=== PATIENT | female | born 1965 | race Caucasian/White ===

== ENCOUNTER 2020-05-22 06:25 | Emergency (ER) | payer OTHER, SELFPAY ==
--- NOTE | ~2020-05-22 | CT_ITS ---
EXAMINATION: CT ABDOMEN AND PELVIS WITHOUT CONTRAST CLINICAL INFORMATION: Right lower quadrant pain. COMPARISON: CT abdomen pelvis 12/19/2018. TECHNIQUE: Multidetector volumetric imaging was performed from the superior aspect of the liver through the pubic symphysis. Sagittal and coronal reformatted images were obtained on the technologist's workstation. This CT examination was performed using dose optimization techniques as appropriate, variously including the following: *Automated exposure control *Adjustment of mA and/or kV according to patient size (this includes techniques or standardized protocols for targeted exams where dose is matched to indication/reason for exam; i.e. extremities or head) *Use of iterative reconstruction technique DLP: 832 mGy-cm FINDINGS: LUNG BASES: The incidentally visualized left lung base demonstrates mild focal posterior basilar airspace and groundglass opacity (series 3 image 10). LIVER, GALLBLADDER, AND BILIARY TREE: The liver is normal in size, shape, and attenuation. No focal hepatic lesion or biliary ductal dilatation is present. Cholecystectomy clips are noted. PANCREAS: Unremarkable. SPLEEN: A 7 mm peripheral low density focus is present inferiorly within the spleen and corresponds to similar finding present on the 12/19/2018 examination, possibly representing a cyst. No deformation of the adjacent splenic contour is noted to specifically suggest a chronic splenic infarct. ADRENAL GLANDS: Unremarkable. KIDNEYS AND URETERS: The kidneys are normal in appearance without evidence of hydronephrosis or perinephric inflammatory changes. No urolithiasis is identified. No ureterectasis is noted. BLADDER: Physiologically distended. No bladder calcifications or mural thickening. GASTROINTESTINAL TRACT: The appendix is not visualized. Close scrutiny to the cecum and expected location of the appendix demonstrates no inflammatory changes or abnormal fluid collections. The terminal ileum is normal in appearance. No free intraperitoneal fluid or gas collections are identified. No intestinal dilatation or mural thickening is visualized. The insulin visualized distal esophagus demonstrates apparent concentric mural thickening similar to findings noted on the comparison exam of 12/19/2018. No hiatal hernia is visualized. The stomach is normal in appearance. ABDOMINAL WALL: No significant hernia is appreciated. LYMPH NODES: Normal. VASCULAR: Mild scattered calcific atherosclerosis. PELVIC VISCERA: Uterus is normal in appearance. No adnexal lesions. OSSEOUS STRUCTURES: Mild bilateral osteitis condense and ileitis is noted. CT/CT abdomen pelvis wo con IMPRESSION: 1. Partially visualized mild focal right lower lobe pulmonary airspace disease. This finding may represent aspiration pneumonitis or pneumonia. This finding is only partially included in the incidentally visualized lung bases. 2. No acute abnormalities identified within the abdomen and pelvis. No urolithiasis. Normal appearance of the kidneys. The appendix is not visualized. No pericecal inflammatory changes. Normal appearance of the terminal ileum. No free intraperitoneal fluid or gas collections. 3. Status post cholecystectomy. 4. The incidentally visualized distal thoracic esophagus demonstrates concentric mural thickening similar to findings noted on the comparison exam of 12/19/2018 which may correlate with esophagitis.
[2020-05-22 06:44] VITALS: BP 149/74; PULSE 68; RESP 20; TEMP 36.6; O2SAT 96; BMI 32.1
--- NOTE | 2020-05-22 06:45 | ED.GENADULT ---
HPI - General Adult General Chief complaint: Abdominal Pain Stated complaint: Right side pain Time Seen by Provider: 05/22/20 06:34 Source: patient Mode of arrival: ambulatory Limitations: no limitations History of Present Illness HPI narrative: 55-year-old female who presents emergency department for evaluation of right flank and right lower quadrant pain. Patient states for over the past 2 days she has had a slight cramping sensation in her right flank and right lower quadrant area. She states that last night, while she was at rest, she had sudden onset of increased severity of this pain. She states that the pain became a constant, cramping sensation which was 8/10 at its worst. She had associated diaphoresis and felt like she had to urinate but was unable to urinate. She denied fever, chills, chest pain, shortness of breath, nausea or vomiting associated with the pain. She denied frequency or dysuria. The patient states this is her 1st episode of this type pain. The pain persisted this morning was 6/10, therefore she came to the emergency department for evaluation. Past surgical history is significant for cholecystectomy only. Related Data Previous Rx's Medication Instructions Recorded levothyroxine 300 mcg tablet 300 mcg PO DAILY 30 Days #30 tab 04/29/20 nicotine 14 mg/24 hr daily 1 patch TRANSDERMAL DAILY 28 Days 05/13/20 transdermal patch #28 ea azithromycin [Zithromax Z-Alton] See Rx Instructions .ROUTE 05/22/20 .COMPLEX #6 tab cefuroxime axetil 500 mg PO Q12H 7 Days #14 tab 05/22/20 omeprazole 20 mg PO DAILY #30 cap 05/22/20 Allergies Allergy/AdvReac Type Severity Reaction Status Date / Time No Known Allergies Allergy Unverified 05/22/20 06:48 Review of Systems Review of Systems: Yes all other systems are reviewed and are negative Neurologic: Reports Abnormal speech present [facility] Past Medical History [facility] Narrative: The patient smokes 4 cigarettes per day times 25 years, she denies alcohol and tobacco use. Medical History Hypothyroid Raynaud's disease without gangrene Family History Family History Father Liver cancer Mother Hypertension Social History Social History Alcohol intake: never Smoking Status: Current every day smoker Tobacco Type: Cigarette Cigarettes Per Day: 5 Use of substances other than those prescribed or required for medical reasons: No Advance Directives: Yes Advance Directives Information Provided: Yes Advance Directives on File: No Physical Exam Vital Signs: Vital Signs: Last Vital Signs Temp 97.9 F 05/22/20 06:44 Pulse 68 05/22/20 08:14 Resp 16 05/22/20 08:14 BP 144/67 H 05/22/20 08:14 Pulse Ox 96 05/22/20 08:14 Body Mass Index 32.1 Const: General: cooperative Nutritional Appearance: overweight Orientation/consciousness: oriented to person and oriented to place Limitations: no limitations HENMT: Head: Yes normal to inspection, Yes normocephalic and Yes atraumatic Ears: external ears normal General nose exam: Normal external nose present Face and sinus: Yes normal facial exam Mouth: Normal oral and palatal mucosa present Throat: Yes posterior oropharynx normal Eyes: Periorbital: periorbital findings normal Eyelids: Yes eyelids normal Conjunctivae: conjunctivae normal Sclerae: sclerae normal Corneas: corneas normal Pupils: Equal, round and reactive pupils present Direct Ophthalmoscopy: normal light reflex Neck: Neck: Yes full ROM, Yes no lymphadenopathy, Yes no meningeal signs, Yes trachea midline and Yes supple Chest: Chest palpation & inspection: normal inspection of the chest and normal palpation of entire chest wall Resp: Effort & Inspection: normal respiratory effort and able to speak in complete sentences Auscultation: clear to auscultation bilaterally Cardio: Rate: regular rate Rhythm: regular rhythm Heart sounds: S1 normal heart sound present, S2 normal heart sound present and no murmurs GI: Inspection: Yes normal to inspection Palpation (GI): Soft to palpation, Tenderness to palpation present (GI) in the RLQ (Moderate), no guarding, not rigid and No hepatosplenomegaly present Auscultation: normal bowel sounds : General: Yes CVA tenderness on the right (Moderate) Back/Spine/Pelvis: Back: CVA tenderness Cervical Spine: normal cervical lordosis Thoracic/Lumbar Spine: thoracic and lumbar spine normal to inspection Skin: Lesions: no lesions Rashes: no rashes Wounds: no wounds Neuro: General: oriented to person, oriented to place and no meningeal signs Cranial nerves: Yes CN's II-XII intact bilaterally and Yes Equal, round and reactive pupils present Cognition (Neuro): normal cognition Speech: Abnormal speech present Motor exam (neuro): 5/5 motor strength present throughout Extrem: General: Yes normal to inspection and Yes full ROM Psych: Appearance: well kempt Mental Status: mental status grossly normal Speech and movement: Normal speech and movement present Affect: normal affect Attitude: cooperative Thought process: Normal thought process present Thought content: Normal thought content present Course Course Course Narrative: 55-year-old female who presents to emergency department for evaluation right flank and right lower quadrant pain x2 days, pain became worse at 10:00 p.m. last night, associated with hesitancy but no frequency or dysuria. Physical examination did reveal right flank tenderness and right lower quadrant tenderness. I ordered a CBC, CMP, the urinalysis, urine test and CT scan of the abdomen pelvis without IV contrast. Patient was also ordered to get Toradol 30 mg IV for her pain. 0907: The patient did get some improvement with the Toradol but her pain is still 6/10 therefore she was ordered to get morphine 4 mg IV. The patient's laboratory evaluation revealed mild anemia with an H&H of 12 and 35. Urinalysis revealed 3+ blood, microscopic revealed 15-[address] scan of the abdomen pelvis did not reveal a clear cause for the patient's abdominal pain. The patient does have possible right lower lobe airspace disease/pneumonia which could explain her right-sided pain. The patient however is relatively asymptomatic terms of pneumonia as the cause. Patient has esophageal thickening but she states she has chronic heartburn symptoms. The radiologist was not able to visualize the patient's appendix but there was no other signs of acute appendicitis. I did tell the patient I do not have a clear cause for her pain and I going to treat her like she has pneumonia with azithromycin Z-Alton and Ceftin 500 mg twice a day for 7 days. The patient was advised to take Tylenol and ibuprofen for pain. I did tell her for pain gets worse over the next 24 hours or if it is not completely resolved in 24 hours that she needs to return to the emergency department for re-evaluation to rule out appendicitis. Medical Decision Making Lab Data Result diagrams: 05/22/20 06:58 05/22/20 06:58 Labs: Lab Results 05/22/20 05/22/20 Range/Units 06:58 06:58 WBC 8.1 (4.8-10.8) X10*3/uL RBC 3.57 L (4.20-5.50) X10*6/uL Hgb 12.1 (12.0-16.0) g/dl Hct 35.1 L (37-47) % MCV 98.3 H (80-98) fL MCH 33.9 H (27.0-33.0) pg MCHC 34.5 (31.0-35.0) g/dl RDW 13.2 (11.0-16.0) % Plt Count 195 (160-400) X10*3/uL MPV 9.9 (9.4-12.3) fL Immature Gran % (Auto) 0.5 H (0.0-0.4) % Neut % (Auto) 63.4 (45-73) % Lymph % (Auto) 22.4 (20-40) % [place] % (Auto) 10.5 (2-11) % Eos % (Auto) 2.7 (0-4) % Baso % (Auto) 0.5 (0-2) % Lymph # (Auto) 1.8 (1.2-4.9) X10*3/uL [place] # (Auto) 0.9 (0.1-1.2) X10*3/uL Eos # (Auto) 0.2 (0.0-0.4) X10*3/uL Baso # (Auto) 0.0 (0.0-0.2) X10*3/uL Abs Immat Gran (auto) 0.04 H (0.00-0.03) X10*3/uL Absolute Neuts (auto) 5.1 (2.0-8.3) X10*3/uL Absolute Nucleated RBC 0.000 (0.0-0.012) X10*3/uL Nucleated RBC % (auto) 0.0 (0.0-0.2) /100WBC Sodium 140 (135-145) mmol/L Potassium 4.2 (3.3-5.1) mmol/L Chloride 105 (96-108) mmol/L Carbon Dioxide 27 (22-29) mmol/L Anion Gap 12 (12-20) BUN 15 (9-16) mg/dL Creatinine 0.69 (0.5-1.4) mg/dL Estim Creat Clear Calc 110.3 Estimated GFR > 60 Random Glucose 121 H (60-115) mg/dL Calcium 8.6 (8.4-10.2) mg/dL Total Bilirubin 0.3 (0.0-1.0) mg/dL AST 29 (5-31) U/L ALT 25 (0-31) U/L Alkaline Phosphatase 84 (39-117) U/L Total Protein 7.3 (6.5-8.0) g/dL Albumin 3.7 (3.5-5.0) g/dL Lipase 45 (8-78) U/L Imaging Data CT abdomen pelvis without IV contrast: My impression: No obvious cause for the patient's right-sided abdominal pain. Radiologist's impression: [address] [id number] Scan ReportSigned Patient: Sreekanth DorantesMR#: [id number]: [id number]:[id number]/Sex: 55 / FADM Date: 05/22/20Loc: HO.EDAttending Dr: Ordering Physician: Akash Farr MD Date of Service: 05/22/20 Procedure(s): CT abdomen pelvis wo con Accession Number(s): [id number] cc: Akash Farr MD~ EXAMINATION: CT ABDOMEN AND PELVIS WITHOUT CONTRAST CLINICAL INFORMATION: Right lower quadrant pain. COMPARISON: CT abdomen pelvis 12/19/2018. TECHNIQUE: Multidetector volumetric imaging was performed from the superior aspect of the liver through the pubic symphysis. Sagittal and coronal reformatted images were obtained on the technologist's workstation. This CT examination was performed using dose optimization techniques as appropriate, variously including the following: *Automated exposure control *Adjustment of mA and/or kV according to patient size (this includes techniques or standardized protocols for targeted exams where dose is matched to indication/reason for exam; i.e. extremities or head) *Use of iterative reconstruction technique DLP: 832 mGy-cm FINDINGS: LUNG BASES: The incidentally visualized left lung base demonstrates mild focal posterior basilar airspace and groundglass opacity (series 3 image 10). LIVER, GALLBLADDER, AND BILIARY TREE: The liver is normal in size, shape, and attenuation. No focal hepatic lesion or biliary ductal dilatation is present. Cholecystectomy clips are noted. PANCREAS: Unremarkable. SPLEEN: A 7 mm peripheral low density focus is present inferiorly within the spleen and corresponds to similar finding present on the 12/19/2018 examination, possibly representing a cyst. No deformation of the adjacent splenic contour is noted to specifically suggest a chronic splenic infarct. ADRENAL GLANDS: Unremarkable. KIDNEYS AND URETERS: The kidneys are normal in appearance without evidence of hydronephrosis or perinephric inflammatory changes. No urolithiasis is identified. No ureterectasis is noted. BLADDER: Physiologically distended. No bladder calcifications or mural thickening. GASTROINTESTINAL TRACT: The appendix is not visualized. Close scrutiny to the cecum and expected location of the appendix demonstrates no inflammatory changes or abnormal fluid collections. The terminal ileum is normal in appearance. No free intraperitoneal fluid or gas collections are identified. No intestinal dilatation or mural thickening is visualized. The insulin visualized distal esophagus demonstrates apparent concentric mural thickening similar to findings noted on the comparison exam of 12/19/2018. No hiatal hernia is visualized. The stomach is normal in appearance. ABDOMINAL WALL: No significant hernia is appreciated. LYMPH NODES: Normal. VASCULAR: Mild scattered calcific atherosclerosis. PELVIC VISCERA: Uterus is normal in appearance. No adnexal lesions. OSSEOUS STRUCTURES: Mild bilateral osteitis condense and ileitis is noted. CT/CT abdomen pelvis wo con IMPRESSION: 1. Partially visualized mild focal right lower lobe pulmonary airspace disease. This finding may represent aspiration pneumonitis or pneumonia. This finding is only partially included in the incidentally visualized lung bases. 2. No acute abnormalities identified within the abdomen and pelvis. No urolithiasis. Normal appearance of the kidneys. The appendix is not visualized. No pericecal inflammatory changes. Normal appearance of the terminal ileum. No free intraperitoneal fluid or gas collections. 3. Status post cholecystectomy. 4. The incidentally visualized distal thoracic esophagus demonstrates concentric mural thickening similar to findings noted on the comparison exam of 12/19/2018 which may correlate with esophagitis. Dictated By:SADIA ORTEGA MDSigned By:<Electronically signed by SADIA ORTEGA MD in [place]> Discharge Plan Discharge Clinical Impression: Pneumonia Qualifiers: Pneumonia type: due to unspecified organism Laterality: right Lung location: lower lobe of lung Qualified Code(s): J18.9 - Pneumonia, unspecified organism Abdominal pain Qualifiers: Abdominal location: right lower quadrant Qualified Code(s): R10.31 - Right lower quadrant pain Patient Disposition: Home, Self-Care Instructions: Abdominal Pain (ED), Pneumonia (ED) Additional Instructions: Your blood work was unremarkable. You did have some blood in your urine which is not significant The CT scan of your abdomen pelvis is concerning for possible right-sided pneumonia and esophagitis (inflammation of your food 2/esophagus). The pneumonia could explain your abdominal pain however there are still other possible causes for your abdominal pain like appendicitis. I am going to treat you for pneumonia with antibiotics. Take Zithromax Z-Alton as prescribed. Take Ceftin 500 mg pills, 1 pill twice a day for 7 days. Make sure you complete both of these antibiotics as prescribed. Take ibuprofen 200 mg pills, 3 pills every 6 hours as needed for pain. Take Tylenol (acetaminophen) 500 mg pills, 2 pills every 4 to 6 hours as needed for pain. Also take Prilosec 20 mg pills, 1 pill once a day for 1 month patient help with your heartburn. Since I am not completely certain what is causing your abdominal pain it is important that you return to the emergency department if your pain gets worse or if your pain is not completely resolved in 24 hours. Follow-up with your doctor in 2 days. Please return to the emergency department if your symptoms get worse or if you develop any symptoms that are concerning to you. Prescriptions: New azithromycin [Zithromax Z-Alton] 250 mg tablet See Rx Instructions .ROUTE .COMPLEX Qty: 6 RF: 0 cefuroxime axetil 500 mg tablet 500 mg PO Q12H 7 Days Qty: 14 RF: 0 omeprazole 20 mg capsule,delayed release(DR/EC) 20 mg PO DAILY Qty: 30 RF: 0 No Action levothyroxine 300 mcg tablet 300 mcg PO DAILY 30 Days Qty: 30 RF: 2 nicotine 14 mg/24 hr patch 24 hour 1 patch transdermal DAILY 28 Days Qty: 28 RF: 0
[2020-05-22] MEDS: Ketorolac Tromethamine 30 MG/ML VIAL IVPUSH (07:00)
[2020-05-22] MEDS: 0.9 % Sodium Chloride 1,000 ML 999 ML IV (07:00)
[2020-05-22 07:02] LABS: MANUAL DIFF FLAG NO
[2020-05-22 07:38] LABS: Alanine Aminotransferase 25 U/L (0-31); Albumin Level 3.7 g/dL (3.5-5.0); Alkaline Phosphatase 84 U/L (39-117); Anion Gap 12 (12-20); Aspartate Amino Transferase 29 U/L (5-31); Bilirubin Total 0.3 mg/dL (0.0-1.0); Blood Urea Nitrogen 15 mg/dL (9-16); Calcium 8.6 mg/dL (8.4-10.2); Carbon Dioxide 27 mmol/L (22-29); Chloride 105 mmol/L (96-108); Creatinine Clr Calc Pharmacy 110.3; Estimated Glomerular Filt Rate > 60; Glucose Random 121 mg/dL (60-115); Lipase 45 U/L (8-78); Potassium 4.2 mmol/L (3.3-5.1); Sodium 140 mmol/L (135-145); Total Protein 7.3 g/dL (6.5-8.0)
[2020-05-22 07:53] LABS: Basophils Percent Auto 0.5 % (0-2); Eosinophils Absolute Auto 0.2 X10*3/uL (0.0-0.4); Eosinophils Percent Auto 2.7 % (0-4); Hematocrit 35.1 % (37-47); Hemoglobin 12.1 g/dl (12.0-16.0); Imm Gran Abs Auto 0.04 X10*3/uL (0.00-0.03); Imm Gran Pct Auto 0.5 % (0.0-0.4); Lymphocytes Absolute Auto 1.8 X10*3/uL (1.2-4.9); Lymphocytes Percent Auto 22.4 % (20-40); Mean Corpuscular HGB Conc 34.5 g/dl (31.0-35.0); Mean Corpuscular Hemoglobin 33.9 pg (27.0-33.0); Mean Corpuscular Volume 98.3 fL (80-98); Mean Platelet Volume 9.9 fL (9.4-12.3); Monocytes Absolute Auto 0.9 X10*3/uL (0.1-1.2); Monocytes Percent Auto 10.5 % (2-11); Neutrophils Absolute Auto 5.1 X10*3/uL (2.0-8.3); Neutrophils Percent Auto 63.4 % (45-73); Platelet Count 195 X10*3/uL (160-400); Red Blood Count 3.57 X10*6/uL (4.20-5.50); Red Cell Distribution Width 13.2 % (11.0-16.0); White Blood Count 8.1 X10*3/uL (4.8-10.8)
[2020-05-22 08:14] VITALS: BP 144/67; PULSE 68; RESP 16; O2SAT 96
[2020-05-22] MEDS: Azithromycin 500 MG TABLET PO (09:18)
[2020-05-22] MEDS: Morphine Sulfate 4 MG/ML CARTRIDGE IVPUSH (09:18)
[2020-05-22 09:19] VITALS: BP 139/71; PULSE 65; RESP 16; O2SAT 96
== END 2020-05-22 10:34 | disposition home or self-care (01) ==
PROVIDERS: Emergency Provider Emergency Medicine Emergency Medical Services; PCP Nurse Practitioner Family
DX: J18.9 Pneumonia, unspecified organism (principal); R10.31 Right lower quadrant pain; Z87.442 Personal history of urinary calculi; F17.210 Nicotine dependence, cigarettes, uncomplicated
CPT/HCPCS: 36415; 74176; 80053; 83690; 85025; 96361; 96374; 96375; 99284; J1885; J2270

== ENCOUNTER 2020-10-21 21:56 | Inpatient (IN) | payer OTHER, SELFPAY ==
--- NOTE | ~2020-10-21 | CT_ITS ---
EXAMINATION: CT HEAD WITHOUT CONTRAST CLINICAL INFORMATION: Headache. Rule out subarachnoid hemorrhage. COMPARISON: None. TECHNIQUE: Contiguous axial imaging was performed from the skull base to vertex without intravenous contrast. This CT examination was performed using dose optimization techniques as appropriate, variously including the following: * Automated exposure control * Adjustment of mA and/or kV according to patient size (this includes techniques or standardized protocols for targeted exams where dose is matched to indication/reason for exam; i.e. extremities or head) Use of iterative reconstruction technique DLP: 875 mGy-cm. FINDINGS: There is no evidence of acute intracranial hemorrhage or territorial infarction. No abnormal mass effect or midline shift is seen. Cook to white matter differentiation is well preserved. No extra-axial fluid collections are identified. No hydrocephalus. No significant volume loss. There is no abnormal attenuation within the brain parenchyma. The osseous structures and soft tissues are normal. The mastoid air cells and visualized portions of the paranasal sinuses are well aerated. CT/CT head/brain wo con IMPRESSION: No acute intracranial pathology.
--- NOTE | ~2020-10-21 | XR_ITS ---
EXAMINATION: XR CHEST CLINICAL INFORMATION: Concern for pneumonia. COMPARISON: None TECHNIQUE: 2 views of the chest were obtained. FINDINGS: The cardiomediastinal and hilar contours are within normal limits. The lungs are clear without focal consolidation, pleural effusion or pneumothorax. XR/XR chest 2V IMPRESSION: No acute process identified.
--- NOTE | ~2020-10-21 | MR_ITS ---
EXAMINATION: MRV HEAD WITHOUT AND WITH CONTRAST CLINICAL INFORMATION: Headache. Lupus anticoagulant. Rule out cerebral venous thrombosis. COMPARISON: Head CT 10/23/2020. TECHNIQUE: MRV of the head was performed without and with contrast. Maximum intensity projections and 3-D reformats were rendered and reviewed. A total of 10 mL Gadavist was intravenously administered. Although contrast was injected, due to bolus timing, no postcontrast images were acquired per the technologist note. FINDINGS: The superior sagittal sinus and paired transverse and sigmoid sinuses demonstrate normal flow related enhancement and opacification. The deep system including the straight sinus, vein of Nakul, and paired internal cerebral veins and basal veins of Alejandra are patent. MR/MR venography head wo/w con IMPRESSION: No evidence of dural venous sinus thrombosis on this noncontrast exam.
--- NOTE | ~2020-10-21 | US_ITS ---
EXAMINATION: US VENOUS ULTRASOUND WITH DOPPLER LOWER EXTREMITY, RIGHT CLINICAL INFORMATION: Swelling COMPARISON: None TECHNIQUE: Ultrasound of the deep veins is performed from the hip to the calf with compression sonography and color and pulse Doppler assessment. Spectral analysis with color-flow imaging is performed. FINDINGS: There is acute appearing nearly occlusive thrombus seen within the right lower extremity from the level of the calf to the mid thigh at the level of the superficial femoral vein. Remainder of the deep venous system is patent There is no significant popliteal fossa cyst. US/US venous duplex LE RT IMPRESSION: Acute DVT as above. Reading provided via stranding supervisor staff.
[2020-10-21 21:58] VITALS: BP 188/98; PULSE 76; RESP 16; TEMP 36.2; O2SAT 98; BMI 32.8
--- NOTE | 2020-10-21 22:40 | ED.LOWEXIN ---
HPI - Extremity Injury (Lower) General Chief Complaint: Extremity Injury, Lower Stated Complaint: leg swelling Time Seen by Provider: 10/21/20 22:15 Source: patient Mode of arrival: ambulatory History of Present Illness HPI Narrative: 55-year-old female with a past medical history hypothyroid, renal stones, Raynaud's, presenting to the ED complaining of worsening RLE swelling and pain x 6 days. Admits to similar symptoms in the past however not as severe which resolved spontaneously. Patient is cigarette smoker smokes 1/2 PPD. denies fever, chills, cough, CP/SOB, recent travel, history of blood clots, numbness/tingling Related Data Previous Rx's Medication Instructions Recorded levothyroxine 300 mcg tablet 300 mcg PO DAILY 30 Days #30 tab 04/29/20 nicotine 14 mg/24 hr daily 1 patch TRANSDERMAL DAILY 28 Days 05/13/20 transdermal patch #28 ea azithromycin 250 mg tablet See Rx Instructions .ROUTE 05/22/20 (Zithromax Z-Alton) .COMPLEX #6 tab cefuroxime axetil 500 mg tablet 500 mg PO Q12H 7 Days #14 tab 05/22/20 omeprazole 20 mg capsule,delayed 20 mg PO DAILY #30 cap 05/22/20 release apixaban 5 mg (74 tabs) tablets in 5 mg PO PER PKG DIR #74 ea 10/22/20 a dose pack (Eliquis DVT-PE Treat 30D Start) Allergies Allergy/AdvReac Type Severity Reaction Status Date / Time No Known Allergies Allergy Unverified 05/22/20 06:48 Review of Systems Review of Systems: Constitutional: No Fever, No Chills ENT/Mouth: No Ear Pain, No sore throat, No Swallowing Difficulty Cardiovascular: No Chest Pain, No SOB Respiratory: No Cough Gastrointestinal: No Nausea, No Vomiting, No Abdominal pain Genitourinary:No Dysuria, No Urinary Frequency, No Flank Pain Musculoskeletal: + joint pain, No Myalgias, +Joint Swelling Skin: No Skin Lesions, No rash Neuro: No Weakness, No Numbness, No Paresthesias Yes all other systems are reviewed and are negative [facility] Past Medical History Attestation statement: The following information was validated with the patient. Medical History Hypothyroid Raynaud's disease without gangrene Family History Family History Father Liver cancer Mother Hypertension Social History Social History Alcohol intake: never Cigarettes Per Day: 5 Advance Directives: No Advance Directives Information Provided: Yes Physical Exam Vital Signs: Vital Signs: Last Vital Signs Temp 98.1 F 10/21/20 23:39 Pulse 73 10/21/20 23:39 Resp 16 10/21/20 23:39 BP 155/89 H 10/21/20 23:39 Pulse Ox 96 10/21/20 23:39 Body Mass Index 32.8 Const: General: cooperative and healthy appearing Orientation/consciousness: patient oriented x3 Limitations: no limitations HENMT: Head: Yes normal to inspection Ears: hearing grossly normal bilaterally General nose exam: Normal external nose present Face and sinus: Yes normal facial exam Eyes: General: appearance normal, both eyes and all related structures EOM: EOMs intact bilaterally Neck: Neck: Yes normal visual inspection Resp: Effort & Inspection: normal respiratory effort Auscultation: clear to auscultation bilaterally, no rales, no rhonchi and no wheezes Cardio: Rate: regular rate Heart sounds: S1 normal heart sound present and S2 normal heart sound present Peripheral pulses: dorsalis pedis present Skin: Rashes: no rashes Wounds: no wounds Neuro: General: patient oriented x3 Gait exam (Neuro): Normal gait present Extrem: Other: + pitting edema noted to right lower extremity. Pulses intact. Tender to palpation. No evidence of cellulitis/erythema or warmth Course Course Course Narrative: US venous duplex LE RT IMPRESSION: Acute DVT as above. Reading provided via veterinary technology instructor staff. >> will obtain labs, still low suspicion for PE as patient has no SOB/CP. -0016--no leukocytosis. H&H is stable. PTT elevated to 72 >> Case discussed with Dr. Willis question if patient may have lupus or other disorder causing this abnormality. Will redraw PTT and an SAMIR titer. Holding p.o. Eliquis dose at this time. -0100--ED care transferred to Dr. Willis pending repeat PTT MDM - Extremity Injury (Lower) MDM Narrative Medical decision making narrative: 55-year-old female with a past medical history hypothyroid, renal stones, Raynaud's, presenting to the ED complaining of worsening RLE swelling and pain x 6 days. Admits to similar symptoms in the past however not as severe which resolved spontaneously. Patient is cigarette smoker smokes 1/2 PPD. denies fever, chills, cough, CP/SOB, recent travel, history of blood clots, numbness/tingling Lab Data Result diagrams: 10/21/20 23:51 10/21/20 23:51 Labs: Lab Results 10/21/20 10/21/20 10/21/20 Range/Units 23:51 23:51 23:51 WBC 9.1 (4.8-10.8) X10*3/uL RBC 3.54 L (4.20-5.50) X10*6/uL Hgb 11.9 L (12.0-16.0) g/dl Hct 33.9 L (37-47) % MCV 95.8 (80-98) fL MCH 33.6 H (27.0-33.0) pg MCHC 35.1 H (31.0-35.0) g/dl RDW 13.2 (11.0-16.0) % Plt Count 157 L (160-400) X10*3/uL MPV 9.1 L (9.4-12.3) fL Immature Gran % (Auto) 1.0 H (0.0-0.4) % Neut % (Auto) 66.6 (45-73) % Lymph % (Auto) 22.2 (20-40) % Schoolcraft % (Auto) 8.1 (2-11) % Eos % (Auto) 1.8 (0-4) % Baso % (Auto) 0.3 (0-2) % Lymph # (Auto) 2.0 (1.2-4.9) X10*3/uL Schoolcraft # (Auto) 0.7 (0.1-1.2) X10*3/uL Eos # (Auto) 0.2 (0.0-0.4) X10*3/uL Baso # (Auto) 0.0 (0.0-0.2) X10*3/uL Abs Immat Gran (auto) 0.09 H (0.00-0.03) X10*3/uL Absolute Neuts (auto) 6.0 (2.0-8.3) X10*3/uL Absolute Nucleated RBC 0.000 (0.0-0.012) X10*3/uL Nucleated RBC % (auto) 0.0 (0.0-0.2) /100WBC PT 11.8 (9.9-13.0) SEC INR 1.0 (0.9-1.1) APTT 72.0 H* (24.1-38.0) SEC Sodium 139 (135-145) mmol/L Potassium 3.6 (3.3-5.1) mmol/L Chloride 103 (96-108) mmol/L Carbon Dioxide 31 H (22-29) mmol/L Anion Gap 9 L (12-20) BUN 13 (9-16) mg/dL Creatinine 0.84 (0.5-1.4) mg/dL Estim Creat Clear Calc 91.7 Estimated GFR > 60 Random Glucose 103 (60-115) mg/dL Calcium 8.8 (8.4-10.2) mg/dL Total Bilirubin 0.3 (0.0-1.0) mg/dL Direct Bilirubin < 0.2 (0.0-0.5) mg/dL AST 27 (5-31) U/L ALT 23 (0-31) U/L Alkaline Phosphatase 82 (39-117) U/L B-Natriuretic Peptide (<100) pg/mL Total Protein 7.2 (6.5-8.0) g/dL Albumin 3.7 (3.5-5.0) g/dL 10/21/20 Range/Units 23:51 WBC (4.8-10.8) X10*3/uL RBC (4.20-5.50) X10*6/uL Hgb (12.0-16.0) g/dl Hct (37-47) % MCV (80-98) fL MCH (27.0-33.0) pg MCHC (31.0-35.0) g/dl RDW (11.0-16.0) % Plt Count (160-400) X10*3/uL MPV (9.4-12.3) fL Immature Gran % (Auto) (0.0-0.4) % Neut % (Auto) (45-73) % Lymph % (Auto) (20-40) % Schoolcraft % (Auto) (2-11) % Eos % (Auto) (0-4) % Baso % (Auto) (0-2) % Lymph # (Auto) (1.2-4.9) X10*3/uL Schoolcraft # (Auto) (0.1-1.2) X10*3/uL Eos # (Auto) (0.0-0.4) X10*3/uL Baso # (Auto) (0.0-0.2) X10*3/uL Abs Immat Gran (auto) (0.00-0.03) X10*3/uL Absolute Neuts (auto) (2.0-8.3) X10*3/uL Absolute Nucleated RBC (0.0-0.012) X10*3/uL Nucleated RBC % (auto) (0.0-0.2) /100WBC PT (9.9-13.0) SEC INR (0.9-1.1) APTT (24.1-38.0) SEC Sodium (135-145) mmol/L Potassium (3.3-5.1) mmol/L Chloride (96-108) mmol/L Carbon Dioxide (22-29) mmol/L Anion Gap (12-20) BUN (9-16) mg/dL Creatinine (0.5-1.4) mg/dL Estim Creat Clear Calc Estimated GFR Random Glucose (60-115) mg/dL Calcium (8.4-10.2) mg/dL Total Bilirubin (0.0-1.0) mg/dL Direct Bilirubin (0.0-0.5) mg/dL AST (5-31) U/L ALT (0-31) U/L Alkaline Phosphatase (39-117) U/L B-Natriuretic Peptide 75 (<100) pg/mL Total Protein (6.5-8.0) g/dL Albumin (3.5-5.0) g/dL Discharge Plan Discharge Clinical Impression: DVT (deep venous thrombosis) Qualifiers: DVT location: lower extremity Affected thrombotic vein of extremity: other lower extremity vein Chronicity: acute Laterality: right Qualified Code(s): I82.491 - Acute embolism and thrombosis of other specified deep vein of right lower extremity Patient Disposition: Home, Self-Care Instructions: Deep Vein Thrombosis (ED), Blood Thinners (ED) Additional Instructions: You have a blood clot in your right leg Seble is a blood thinner, take as prescribed, it is very important he follow up with Hematology Being on a blood thinner but to increase risk of bleeding, if you have any falls/hit your head, have any rectal bleeding, bleeding in her urine, black stools please return to the ED If you develop any shortness of breath, chest pain, or persistent/worsening swelling please return to the ED Elevate your legs, you should wear compression stocking Prescriptions: New Seble DVT-PE Treat 30D Start 5 mg (74 tabs) tablets,dose pack 5 mg PO PER PKG DIR Qty: 74 RF: 0 No Action levothyroxine 300 mcg tablet 300 mcg PO DAILY 30 Days Qty: 30 RF: 2 azithromycin [Zithromax Z-Alton] 250 mg tablet See Rx Instructions .ROUTE .COMPLEX Qty: 6 RF: 0 cefuroxime axetil 500 mg tablet 500 mg PO Q12H 7 Days Qty: 14 RF: 0 omeprazole 20 mg capsule,delayed release(DR/EC) 20 mg PO DAILY Qty: 30 RF: 0 nicotine 14 mg/24 hr patch 24 hour 1 patch transdermal DAILY 28 Days Qty: 28 RF: 0 Referrals: Espinoza Alonso MD [Physician] - 5 days Stand Alone Forms: Work/School Release
[2020-10-21 23:39] VITALS: BP 155/89; PULSE 73; RESP 16; TEMP 36.7; O2SAT 96
[2020-10-21 23:57] LABS: Basophils Percent Auto 0.3 % (0-2); Eosinophils Absolute Auto 0.2 X10*3/uL (0.0-0.4); Eosinophils Percent Auto 1.8 % (0-4); Hematocrit 33.9 % (37-47); Hemoglobin 11.9 g/dl (12.0-16.0); Imm Gran Abs Auto 0.09 X10*3/uL (0.00-0.03); Lymphocytes Percent Auto 22.2 % (20-40); MANUAL DIFF FLAG NO; Mean Corpuscular HGB Conc 35.1 g/dl (31.0-35.0); Mean Corpuscular Hemoglobin 33.6 pg (27.0-33.0); Mean Corpuscular Volume 95.8 fL (80-98); Mean Platelet Volume 9.1 fL (9.4-12.3); Monocytes Absolute Auto 0.7 X10*3/uL (0.1-1.2); Monocytes Percent Auto 8.1 % (2-11); Neutrophils Percent Auto 66.6 % (45-73); Platelet Count 157 X10*3/uL (160-400); Red Blood Count 3.54 X10*6/uL (4.20-5.50); Red Cell Distribution Width 13.2 % (11.0-16.0); White Blood Count 9.1 X10*3/uL (4.8-10.8)
[2020-10-22] VITALS (8 sets, daily range): BP systolic 145–208; BP diastolic 73–102; PULSE 65–76; RESP 16–20; TEMP 36.4–37; O2SAT 92–96
[2020-10-22 00:03] LABS: Prothrombin Time 11.8 SEC (9.9-13.0)
[2020-10-22 00:14] LABS: Alanine Aminotransferase 23 U/L (0-31); Albumin Level 3.7 g/dL (3.5-5.0); Alkaline Phosphatase 82 U/L (39-117); Anion Gap 9 (12-20); Aspartate Amino Transferase 27 U/L (5-31); Bilirubin Direct < 0.2 mg/dL (0.0-0.5); Bilirubin Total 0.3 mg/dL (0.0-1.0); Blood Urea Nitrogen 13 mg/dL (9-16); Calcium 8.8 mg/dL (8.4-10.2); Carbon Dioxide 31 mmol/L (22-29); Chloride 103 mmol/L (96-108); Creatinine Clr Calc Pharmacy 91.7; Estimated Glomerular Filt Rate > 60; Glucose Random 103 mg/dL (60-115); Potassium 3.6 mmol/L (3.3-5.1); Sodium 139 mmol/L (135-145); Total Protein 7.2 g/dL (6.5-8.0)
[2020-10-22 00:18] LABS: B Type Natriuretic Peptide 75 pg/mL (<100)
--- NOTE | 2020-10-22 00:42 | PC.NURSE ---
DR PUTNAM AND LITA WHITE PA IN TO TALK WITH PATIENT. PTT WAS ELEVATED. PT/INR WNL. SAMIR AND COAGS REDRAWN.
--- NOTE | 2020-10-22 02:09 | PM.IMHP ---
History of Present Illness Date of Service: 10/22/20 Chief Complaint: RLE pain/swelling 55-year-old female with a past medical history of hypothyroidism, renal calculi, Raynaud's phenomena, tobacco dependence presented to the hospital with a chief complaint of right lower extremity pain redness and swelling for the past 1 week. Denies any fall or trauma. Denies any recent travel or sick contacts. Denies any chest pain palpitations lightheadedness or dizziness. Denies any shortness of breath or dyspnea on exertion. Denies any fever chills cough. Denies any GI or symptoms. Review of all other systems is negative except mentioned above ER course: Per ER team patient noted to have right lower extremity DVT on ultrasound; on labs noted to elevated PTT and normal PT and INR-concern for von Willebrand's versus lupus anticoagulant; discussed with Dr. greenberg from Hematology suggested to start the patient on Lovenox and will be evaluated in the morning. Admitted for further management. [facility] Medical History Hypothyroid Raynaud's disease without gangrene Family History Father Liver cancer Mother Hypertension Social History Alcohol intake: never Cigarettes Per Day: 5 Smoked in Last 30 Days: No Advance Directives: No Advance Directives Information Provided: Yes Meds Allergies Allergy/AdvReac Type Severity Reaction Status Date / Time No Known Allergies Allergy Unverified 05/22/20 06:48 Active Medications: Current Medications Generic Name Dose Route Start Last Admin Trade Name Freq PRN Reason Stop Dose Admin Acetaminophen 650 mg 10/22/20 02:06 Acetaminophen 325 Mg Tablet PO Q6H PRN Pain, Mild (Pain Scale 1-3) Enoxaparin Sodium 95 mg 10/22/20 02:15 Enoxaparin Sodium 120 Mg/0.8 Ml Syringe 1 mg/kg (95 mg) SUBCUT Q12H SYED Dextrose/Sodium Chloride 1,000 mls @ 100 mls/hr 10/22/20 02:15 D51/2ns IVCONT .Q10H SYED Levothyroxine Sodium 300 mcg 10/22/20 06:00 Levothyroxine Sodium 200 Mcg Tablet PO DAILY@0600 [facility] Melatonin 6 mg 10/22/20 02:06 Melatonin 3 Mg Tablet PO BEDTIME PRN Insomnia Oxycodone HCl 5 mg 10/22/20 02:06 Oxycodone Hcl Immed Release 5 Mg Tablet PO Q6H PRN Pain, Severe (Pain Scale 7-10) Senna 17.2 mg 10/22/20 02:06 Sennosides 8.6 Mg Tablet PO BEDTIME PRN Constipation Sodium Chloride 3 ml 10/22/20 08:00 0.9 % Sodium Chloride Flush 3 Ml Syringe IVFLUSH QSHIFT [facility] Physical Exam Vital Signs and Narrative: Vital Signs: Last Vital Signs Temp 98.1 F 10/22/20 01:17 Pulse 74 10/22/20 01:17 Resp 16 10/22/20 01:17 BP 145/77 H 10/22/20 01:17 Pulse Ox 96 10/22/20 01:17 Body Mass Index 32.8 Results Labs CBC and Chem 7: 10/21/20 23:51 10/21/20 23:51 Labs: Laboratory Results - last 24 hr 10/21/20 10/21/20 10/21/20 23:51 23:51 23:51 MCV 95.8 MCH 33.6 H MCHC 35.1 H RDW 13.2 Plt Count 157 L MPV 9.1 L Immature Gran % (Auto) 1.0 H Neut % (Auto) 66.6 Lymph % (Auto) 22.2 Hopkins % (Auto) 8.1 Eos % (Auto) 1.8 Baso % (Auto) 0.3 Lymph # (Auto) 2.0 Hopkins # (Auto) 0.7 Eos # (Auto) 0.2 Baso # (Auto) 0.0 Abs Immat Gran (auto) 0.09 H Absolute Neuts (auto) 6.0 Absolute Nucleated RBC 0.000 Nucleated RBC % (auto) 0.0 PT 11.8 INR 1.0 APTT 72.0 H* Anion Gap 9 L Estim Creat Clear Calc 91.7 Estimated GFR > 60 Random Glucose 103 Calcium 8.8 Total Bilirubin 0.3 Direct Bilirubin < 0.2 AST 27 ALT 23 Alkaline Phosphatase 82 B-Natriuretic Peptide Total Protein 7.2 Albumin 3.7 10/21/20 10/22/20 23:51 00:42 MCV MCH MCHC RDW Plt Count MPV Immature Gran % (Auto) Neut % (Auto) Lymph % (Auto) Hopkins % (Auto) Eos % (Auto) Baso % (Auto) Lymph # (Auto) Hopkins # (Auto) Eos # (Auto) Baso # (Auto) Abs Immat Gran (auto) Absolute Neuts (auto) Absolute Nucleated RBC Nucleated RBC % (auto) PT INR APTT 75.0 H* Anion Gap Estim Creat Clear Calc Estimated GFR Random Glucose Calcium Total Bilirubin Direct Bilirubin AST ALT Alkaline Phosphatase B-Natriuretic Peptide 75 Total Protein Albumin Imaging Radiologist's Impressions: Impressions Venous Duplex 10/21/20 22:17 IMPRESSION: Acute DVT as above. Reading provided via medical photographer staff. Assessment and Plan (1) DVT (deep venous thrombosis): Qualifiers: Affected thrombotic vein of extremity: other lower extremity vein Chronicity: acute DVT location: lower extremity Laterality: right Qualified Code(s): I82.491 - Acute embolism and thrombosis of other specified deep vein of right lower extremity Status: Acute 55-year-old female with a past medical history of hypothyroidism, renal calculi, Raynaud's phenomena, tobacco dependence presented to the hospital with a chief complaint of right lower extremity pain redness and swelling-noted to have right lower extremity DVT. Also noted elevated PTT. Admitted for further management. Right lower extremity DVT: Continue Lovenox. Patient denies any chest pain palpitations or shortness of breath. Patient not tachycardic. Pneumonia: Continue ceftriaxone azithromycin. Elevated PTT: Concern for lupus versus 1 Willebrand disease. Patient has normal PT and INR. Will send lupus anticoagulant, von Willebrand's antigen, mixing study. Hematology consult aware of the patient. Incidental finding of esophageal thickening: Patient had similar findings on CT scan from 2019-concern for esophagitis Patient denies any swallowing difficulties currently. History of hypothyroidism: Patient takes levothyroxine 300 mcg at home. Will continue for now. Tobacco dependence: Counseled on smoking cessation. DVT prophylaxis: Patient on Lovenox Code status:FULL Code Quality Stroke Does the patient have a stroke diagnosis?: No VTE Prior VTE?: Yes Approximate Date of Prior VTE: 10/22/20 VTE Risk Level:: Medical - moderate - high VTE Device Contraindication: Treatment Not Indicated VTE Drug Contraindication: N/A - Med Ordered
[2020-10-22] MEDS: Enoxaparin Sodium 100 MG/ML SYRINGE SUBCUT (02:23)
--- NOTE | 2020-10-22 02:32 | PC.NURSE ---
HOLD OFF ON PTT MIXING STUDY DUE TO LAB NOT BEING ABLE TO RUN IT UNTIL AM. PER MD CABALLERO GIVE LOVENOX ORDERED.
[2020-10-22 02:47] LABS: IDNOW Serial# 9DD0AD1C
[2020-10-22 02:48] LABS: COVID-19 Test Negative (Negative)
[2020-10-22] MEDS: Dextrose 5 % and 0.45 % NaCl 1,000 ML 100 ML IVCONT ×2 (03:36→14:40)
--- NOTE | 2020-10-22 03:39 | PC.NURSE ---
FIRST CALL TO [facility] [place], [place]. [facility]EIGN [place] TO TAKE REPORT.
[2020-10-22] MEDS: cefTRIAXone sodium 1 GM in 0.9 % Sodium Chloride 50 ML IV (04:22)
[2020-10-22] MEDS: Azithromycin 500 MG TABLET PO (04:22)
[2020-10-22] MEDS: Levothyroxine Sodium 100 MCG TABLET 300 MCG PO (05:54)
[2020-10-22 06:31] LABS: MANUAL DIFF FLAG NO
[2020-10-22 06:40] LABS: Basophils Percent Auto 0.4 % (0-2); Eosinophils Absolute Auto 0.2 X10*3/uL (0.0-0.4); Eosinophils Percent Auto 1.9 % (0-4); Hematocrit 35.1 % (37-47); Hemoglobin 12.1 g/dl (12.0-16.0); Imm Gran Abs Auto 0.08 X10*3/uL (0.00-0.03); Imm Gran Pct Auto 0.9 % (0.0-0.4); Lymphocytes Absolute Auto 2.4 X10*3/uL (1.2-4.9); Lymphocytes Percent Auto 26.2 % (20-40); Mean Corpuscular HGB Conc 34.5 g/dl (31.0-35.0); Mean Corpuscular Hemoglobin 33.2 pg (27.0-33.0); Mean Corpuscular Volume 96.2 fL (80-98); Mean Platelet Volume 9.5 fL (9.4-12.3); Monocytes Absolute Auto 0.7 X10*3/uL (0.1-1.2); Monocytes Percent Auto 7.8 % (2-11); Neutrophils Absolute Auto 5.8 X10*3/uL (2.0-8.3); Neutrophils Percent Auto 62.8 % (45-73); Platelet Count 170 X10*3/uL (160-400); Red Blood Count 3.65 X10*6/uL (4.20-5.50); Red Cell Distribution Width 13.1 % (11.0-16.0); White Blood Count 9.2 X10*3/uL (4.8-10.8)
[2020-10-22 07:13] LABS: Anion Gap 16 (12-20); Blood Urea Nitrogen 11 mg/dL (9-16); Calcium 8.7 mg/dL (8.4-10.2); Carbon Dioxide 28 mmol/L (22-29); Chloride 100 mmol/L (96-108); Creatinine Clr Calc Pharmacy 118.6; Estimated Glomerular Filt Rate > 60; Glucose Random 112 mg/dL (60-115); Potassium 3.6 mmol/L (3.3-5.1); Sodium 140 mmol/L (135-145)
[2020-10-22] MEDS: Acetaminophen 325 MG TABLET 650 MG PO ×2 (09:19→15:47)
--- NOTE | 2020-10-22 09:33 | MHC.CM.PN ---
CM met with Patient at bedside. Patient lives in an apartment with her /HCP and she is functionally independent and working multimedia technician. Patient's goal for dc is home no services and CM has initiated and will follow for dc planning.PCP thru [facility].
--- NOTE | 2020-10-22 12:48 | P.CNHO_ITS ---
Subjective - Subjective Chief complaint: Right leg pain and swelling Patient: new to practice Consult date: 10/22/20 Primary Care Provider: [facility] HPI - Consult Narrative Reason for consult: Prolonged APTT, right leg DVT Narrative: Sreekanth Dorantes is a 55 year old female who presented to the ED yesterday with complaints of right leg pain and swelling that started over the weekend. She denies any trauma, surgery or immobilization. She has been in her usual state of health. 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 She smokes cigarettes, she is not on any hormone supplementation. Her mother had DVT, unclear what the circumstances were. She of unrelated causes. Patient reports no prior episode of thromboembolism. She has no other complaints such as unexplained weight loss, pleuritic chest pain, shortness of breath or cough. She has had surgical procedures in the past without any bruising or bleeding. Review of Systems - Constitutional Reports as per HPI, Reports no additional constitutional complaints - Cardiovascular Reports no additional cardiovascular complaints - Respiratory Reports no additional respiratory complaints - Gastrointestinal Reports no additional gastrointestinal complaints Oncology Screenings - ECOG Performance Status ECOG Performance Status: 1 [facility] Medical History: Medical History (Last Reviewed 05/22/20 @ 06:47 by Akash Farr MD) Hypothyroid Kidney stone Raynaud's disease without gangrene Family History: Family History (Last Reviewed 05/22/20 @ 06:47 by Akash Farr MD) Father Liver cancer Mother Hypertension Social History: Social History (Last Reviewed 05/22/20 @ 06:47 by Akash Farr MD) Living Situation History: Household Members: Spouse Housing: House Do you presently have visiting nurse or other home services: No Alcohol History: Alcohol intake: never Alcohol History Details: Alcohol intake frequency: holiday/special occasion Tobacco History: Patient Tobacco Use Status: Current everyday Tobacco Tobacco use type: Cigarette Smoked in Last 30 Days: Yes e-Cigarette/Vaping Use: Never Used Patient Interested in Nicotine Replacement: No Patient Given Instructions on How to Stop Smoking: Yes Date Education Initiated: 10/22/20 Second Hand Smoke Exposure: No Substance Use History: Use of substances other than those prescribed or required for medical reasons : No Currently Displaying Signs/Symptoms of Drug Intoxication Withdrawal: No Domestic Abuse History: Have you been hit, kicked, punched, or otherwise hurt by someone within the past year? If so, by whom?: No Do you feel safe in your current relationship?: Yes Is there a partner from a previous relationship who is making you feel unsafe now?: No Are you made to feel afraid or neglected: No Advance Directives: Advance Directives: No Advance Directives Information Provided: Yes Homicidal Assessment: Do you have thoughts of harming others: None Do you have a plan to hurt others: No Plan Nutrition Assessment: Recently lost weight without trying: No How much weight loss: Not applicable Eating poorly because of decreased appetite: Yes Nutrition screen score: 1 Nutrition Risks: No Nutritional Risk Patient : No : No Poor oral hygiene: No Occupation Assessmet: service: No Current occupational status: employed Home Medications and Allergies Current Medications: Current Medications Generic Name Dose Route Start Last Admin Trade Name Freq PRN Reason Stop Dose Admin Acetaminophen 650 mg 10/22/20 02:06 10/22/20 09:19 Acetaminophen 325 Mg Tablet PO 650 mg Q6H PRN Administration Pain, Mild (Pain Scale 1-3) Azithromycin 500 mg 10/22/20 04:00 10/22/20 04:22 Azithromycin 500 Mg Tablet PO 500 mg Q24H SYED Administration Enoxaparin Sodium 95 mg 10/22/20 03:45 10/22/20 04:27 Enoxaparin Sodium 100 Mg/Ml Syringe SUBCUT Not Given Q12H SYED Dextrose/Sodium Chloride 1,000 mls @ 100 mls/hr 10/22/20 02:15 10/22/20 03:36 D51/2ns IVCONT 100 mls/hr .Q10H SYED Administration Ceftriaxone Sodium 1 gm/ 50 mls @ 100 mls/hr 10/22/20 04:00 10/22/20 05:01 Sodium Chloride IV Infused Q24H SYED Infusion Levothyroxine Sodium 300 mcg 10/22/20 06:00 10/22/20 05:54 Levothyroxine Sodium 100 Mcg Tablet PO 300 mcg DAILY@0600 SYED Administration Melatonin 6 mg 10/22/20 02:06 Melatonin 3 Mg Tablet PO BEDTIME PRN Insomnia Oxycodone HCl 5 mg 10/22/20 02:06 Oxycodone Hcl Immed Release 5 Mg Tablet PO Q6H PRN Pain, Severe (Pain Scale 7-10) Senna 17.2 mg 10/22/20 02:06 Sennosides 8.6 Mg Tablet PO BEDTIME PRN Constipation Sodium Chloride 3 ml 10/22/20 08:00 10/22/20 09:12 0.9 % Sodium Chloride Flush 3 Ml Syringe IVFLUSH Not Given QSHIFT SYED Allergies Allergy/AdvReac Type Severity Reaction Status Date / Time No Known Allergies Allergy Unverified 05/22/20 06:48 Physical Exam Vital signs: Vital Signs Temp 97.6 F 10/22/20 11:06 Pulse 65 10/22/20 11:06 Resp 18 10/22/20 11:06 BP 145/73 H 10/22/20 11:06 Pulse Ox 94 10/22/20 11:06 Intake & Output 10/21/20 10/22/20 10/22/20 18:59 06:59 18:59 Intake Total 50 / 50 Balance 50 / 50 Intake: Intake, IV Amount 50 / 50 cefTRIAXone sodium 1 gm In 0.9 50 / 50 % Sodium Chloride 50 ml @ 100 mls/hr IV Q24H [facility] Rx#: [id number] Other: Number of Unmeasured Voids 1 Urine Bathroom Last Bowel Movement 10/21/20 Weight 95.254 kg Weight 95.254 kg - Constitutional Present: no acute distress - Routine HEENT Exam Head: Present: normal inspection Eye: Present: EOMI - Routine Neck Exam Present: supple. Absent: lymphadenopathy - Routine Respiratory Exam Present: CTAB - Routine Cardiovascular Exam Cardiovascular: Present: S1, S2 - Routine Abdominal Exam Present: soft - Routine Extremities Exam Present: calf tenderness Comments: Swelling of right leg extending up to mid thigh. - Routine Skin Exam Present: intact. Absent: cyanosis - Routine Neurological Exam Present: alert, oriented X3 Hem/Onc Consult Result - Labs CBC & Chem 7: 10/22/20 05:33 10/22/20 05:33 Labs: Short CBC 10/21/20 10/22/20 Range/Units 23:51 05:33 WBC 9.1 9.2 (4.8-10.8) X10*3/uL Hgb 11.9 L 12.1 (12.0-16.0) g/dl Hct 33.9 L 35.1 L (37-47) % Plt Count 157 L 170 (160-400) X10*3/uL BMP 10/21/20 10/22/20 23:51 05:33 Sodium 139 140 Potassium 3.6 3.6 Chloride 103 100 Carbon Dioxide 31 H 28 BUN 13 11 Creatinine 0.84 0.65 Calcium 8.8 8.7 Liver Function 10/21/20 Range/Units 23:51 Total Bilirubin 0.3 (0.0-1.0) mg/dL Direct Bilirubin < 0.2 (0.0-0.5) mg/dL AST 27 (5-31) U/L ALT 23 (0-31) U/L Alkaline Phosphatase 82 (39-117) U/L Albumin 3.7 (3.5-5.0) g/dL Assessment and Plan Patient Active problem list reviewed?: Yes (1) DVT (deep venous thrombosis) Status: Acute Assessment and plan: 1. This is a pleasant 55-year-old woman with spontaneous right lower extremity DVT who was found to have a prolonged APTT. APTT was over 70 seconds on 2 occasions. Therefore mixing study was ordered, however the APTT done at [facility] is 35 seconds which is only marginally elevated. She also received 1 dose of Lovenox last night for treatment of acute DVT. The prolongation of APTT raised concern for lupus anticoagulant but it appears that the prolonged APTT could be a lab error. She has had surgeries in the past including dental extractions without any bleeding problems. There is family history of thrombosis. However because she has had a spontaneous DVT, she is a candidate for long-term anticoagulation and therefore thrombophilia testing would not manager change. Patient can be started on oral anticoagulant such as Xarelto or Eliquis and discharged home. Patient was advised about smoking cessation. She was advised about screening mammogram and colonoscopy. I thank you for this consultation. - Time Spent With Patient Time Spent with Patient (in minutes): 30
[2020-10-22] MEDS: Enoxaparin Sodium 100 MG/ML SYRINGE 95 MG SUBCUT (15:46)
[2020-10-22] MEDS: amLODIPine Besylate 5 MG TABLET PO (16:02)
--- NOTE | 2020-10-22 18:13 | PC.NURSE ---
Patient on IMC for monitoring/treatment of DVT. IVfluids as ordered. Pain to RLE moderate, well effected by 650mg Tylenol. Patient up, ambulating to BR and back to chair. Vitals this afternoon showed BP 208/102 with 10/10 pounding headache. Neuro exam showed ZERO deficit. Reported to Dr. Noonan Scheduled med of Lovenox givven SC as well as 650mg PO Tylenol. 5mg PO Amlodipine also ordered and given at approx 16:00. BP recheck two hours later showed 156/105. Patient states significant improvement in headache. Family present this afternoon and updated in person.
--- NOTE | 2020-10-22 18:22 | P.PNIM_ITS ---
Subjective Subjective Date of Service: 10/22/20 Interval History: turns out PTT was falsely elevated- rechecked in [facility] lab and just above ULN per Heme BP elevated to 208/102 no prior dx HTN, not on antihypertensives no chest pain c/o EPSTEIN, resolved Review of Systems Review of Systems: Yes all other systems are reviewed and are negative Physical Exam Vital Signs: Vital Signs: Last Vital Signs Temp 97.6 F 10/22/20 15:03 Pulse 71 10/22/20 16:02 Resp 20 10/22/20 15:03 BP 208/102 H 10/22/20 16:02 Pulse Ox 95 10/22/20 15:03 Body Mass Index 32.8 Gen: in no acute distress HEENT: sclera anicteric, moist mucus membranes Neck: supple Lungs: clear to auscultation bilaterally Heart: regular rate and rhythm, no murmurs Abd: soft, non-tender, non-distended Ext: RLE swelling to lower thigh Skin: warm/well-perfused Neuro: alert and oriented x3, no focal findings Psych: appropriate affect Objective Data Current Medications Generic Name Dose Route Start Last Admin Trade Name Arminq PRN Reason Stop Dose Admin Acetaminophen 650 mg 10/22/20 02:06 10/22/20 15:47 Acetaminophen 325 Mg Tablet PO 650 mg Q6H PRN Administration Pain, Mild (Pain Scale 1-3) Amlodipine Besylate 5 mg 10/22/20 15:55 10/22/20 16:02 Amlodipine Besylate 5 Mg Tablet PO 5 mg DAILY SYED Administration Protocol Azithromycin 500 mg 10/22/20 04:00 10/22/20 04:22 Azithromycin 500 Mg Tablet PO 500 mg Q24H SYED Administration Enoxaparin Sodium 95 mg 10/22/20 03:45 10/22/20 15:46 Enoxaparin Sodium 100 Mg/Ml Syringe SUBCUT 95 mg Q12H SYED Administration Dextrose/Sodium Chloride 1,000 mls @ 100 mls/hr 10/22/20 02:15 10/22/20 14:40 D51/2ns IVCONT 100 mls/hr .Q10H SYED Administration Ceftriaxone Sodium 1 gm/ 50 mls @ 100 mls/hr 10/22/20 04:00 10/22/20 05:01 Sodium Chloride IV Infused Q24H SYED Infusion Levothyroxine Sodium 300 mcg 10/22/20 06:00 10/22/20 05:54 Levothyroxine Sodium 100 Mcg Tablet PO 300 mcg DAILY@0600 [facility] Administration Melatonin 6 mg 10/22/20 02:06 Melatonin 3 Mg Tablet PO BEDTIME PRN Insomnia Oxycodone HCl 5 mg 10/22/20 02:06 Oxycodone Hcl Immed Release 5 Mg Tablet PO Q6H PRN Pain, Severe (Pain Scale 7-10) Senna 17.2 mg 10/22/20 02:06 Sennosides 8.6 Mg Tablet PO BEDTIME PRN Constipation Sodium Chloride 3 ml 10/22/20 08:00 10/22/20 17:08 0.9 % Sodium Chloride Flush 3 Ml Syringe IVFLUSH Not Given QSHIFT [facility] Labs CBC & Chem 7: 10/22/20 05:33 10/22/20 05:33 Labs: Laboratory Results - last 24 hr 10/21/20 10/21/20 10/21/20 23:51 23:51 23:51 MCV 95.8 MCH 33.6 H MCHC 35.1 H RDW 13.2 Plt Count 157 L MPV 9.1 L Immature Gran % (Auto) 1.0 H Neut % (Auto) 66.6 Lymph % (Auto) 22.2 P[place] % (Auto) 8.1 Eos % (Auto) 1.8 Baso % (Auto) 0.3 Lymph # (Auto) 2.0 P[place] # (Auto) 0.7 Eos # (Auto) 0.2 Baso # (Auto) 0.0 Abs Immat Gran (auto) 0.09 H Absolute Neuts (auto) 6.0 Absolute Nucleated RBC 0.000 Nucleated RBC % (auto) 0.0 PT 11.8 INR 1.0 APTT 72.0 H* PT Mixing Study PT Normal Plasma Immed PTT Mixing Study PTT Normal Plasma Immed PTT Normal Plasma Post Mixing Interpretation Anion Gap 9 L Estim Creat Clear Calc 91.7 Estimated GFR > 60 Random Glucose 103 Calcium 8.8 Total Bilirubin 0.3 Direct Bilirubin < 0.2 AST 27 ALT 23 Alkaline Phosphatase 82 B-Natriuretic Peptide Total Protein 7.2 Albumin 3.7 COVID-19 ([facility]) COVID-19 Clin Com 10/21/20 10/22/20 10/22/20 23:51 00:42 00:42 MCV MCH MCHC RDW Plt Count MPV Immature Gran % (Auto) Neut % (Auto) Lymph % (Auto) Pinal % (Auto) Eos % (Auto) Baso % (Auto) Lymph # (Auto) Pinal # (Auto) Eos # (Auto) Baso # (Auto) Abs Immat Gran (auto) Absolute Neuts (auto) Absolute Nucleated RBC Nucleated RBC % (auto) PT INR APTT 75.0 H* PT Mixing Study SEE NOTE PT Normal Plasma Immed SEE NOTE PTT Mixing Study SEE NOTE PTT Normal Plasma Immed SEE NOTE PTT Normal Plasma Post SEE NOTE Mixing Interpretation SEE NOTE Anion Gap Estim Creat Clear Calc Estimated GFR Random Glucose Calcium Total Bilirubin Direct Bilirubin AST ALT Alkaline Phosphatase B-Natriuretic Peptide 75 Total Protein Albumin COVID-19 ([facility]) COVID-19 [employer] Com 10/22/20 10/22/20 10/22/20 02:19 05:33 05:33 MCV 96.2 MCH 33.2 H MCHC 34.5 RDW 13.1 Plt Count 170 MPV 9.5 Immature Gran % (Auto) 0.9 H Neut % (Auto) 62.8 Lymph % (Auto) 26.2 P[place] % (Auto) 7.8 Eos % (Auto) 1.9 Baso % (Auto) 0.4 Lymph # (Auto) 2.4 P[place] # (Auto) 0.7 Eos # (Auto) 0.2 Baso # (Auto) 0.0 Abs Immat Gran (auto) 0.08 H Absolute Neuts (auto) 5.8 Absolute Nucleated RBC 0.000 Nucleated RBC % (auto) 0.0 PT INR APTT PT Mixing Study Cancelled PT Normal Plasma Immed Cancelled PTT Mixing Study Cancelled PTT Normal Plasma Immed Cancelled PTT Normal Plasma Post Cancelled Mixing Interpretation Cancelled Anion Gap Estim Creat Clear Calc Estimated GFR Random Glucose Calcium Total Bilirubin Direct Bilirubin AST ALT Alkaline Phosphatase B-Natriuretic Peptide Total Protein Albumin COVID-19 ([facility]) Negative COVID-19 [employer] Com See Note 10/22/20 05:33 MCV MCH MCHC RDW Plt Count MPV Immature Gran % (Auto) Neut % (Auto) Lymph % (Auto) Pinal % (Auto) Eos % (Auto) Baso % (Auto) Lymph # (Auto) Pinal # (Auto) Eos # (Auto) Baso # (Auto) Abs Immat Gran (auto) Absolute Neuts (auto) Absolute Nucleated RBC Nucleated RBC % (auto) PT INR APTT PT Mixing Study PT Normal Plasma Immed PTT Mixing Study PTT Normal Plasma Immed PTT Normal Plasma Post Mixing Interpretation Anion Gap 16 Estim Creat Clear Calc 118.6 Estimated GFR > 60 Random Glucose 112 Calcium 8.7 Total Bilirubin Direct Bilirubin AST ALT Alkaline Phosphatase B-Natriuretic Peptide Total Protein Albumin COVID-19 ([facility]) COVID-19 Clin Com Assessment and Plan (1) DVT (deep venous thrombosis): Status: Acute Assessment and Plan: hospital d#1 with hypothyroidism, Raynaud's, tobacco dependence admitted for RLE DVT, acute, with elevated PTT concerning for APLAS versus vWD, but turns out elevated PTT was a lab error. # HTN urgency - start amlodipine 5 mg/d, monitor BP # RLE DVT - on enoxaparin currently ,d/c on apixaban, f/u with PCP, no hypercoag workup, needs age-appropriate CA screening as outpt # PNA - ceftriaxone + azithromycin d#1, check CXR, check PCT # incidental esophageal thickening on CT -? patient had similar findings on CT scan from 2019-concern for esophagitis? Patient denies any swallowing difficulties currently. # hypothyroidism - LT4 Quality Stroke Does the patient have a stroke diagnosis?: No VTE Prior VTE?: Yes Approximate Date of Prior VTE: 10/22/20 VTE Risk Level:: Medical - moderate - high VTE Device Contraindication: Treatment Not Indicated VTE Drug Contraindication: N/A - Med Ordered
[2020-10-23] VITALS (9 sets, daily range): BP systolic 134–200; BP diastolic 68–98; PULSE 65–83; RESP 18–22; TEMP 36.1–37.1; O2SAT 93–98
--- NOTE | 2020-10-23 00:45 | PC.NURSE ---
pt with manual bp of 200/98 hr 66 nsr on monitor with 15 recheck 194/96. call placed to Dr. Neely with no answer. coretext written. will await new orders. pt denies h/a neuros intact - asymptomatic.
[2020-10-23] MEDS: amLODIPine Besylate 5 MG TABLET PO (01:10)
[2020-10-23] MEDS: 0.9 % Sodium Chloride Flush 3 ML SYRINGE IVFLUSH (01:15)
[2020-10-23] MEDS: Acetaminophen 325 MG TABLET 650 MG PO (01:15)
[2020-10-23] MEDS: Dextrose 5 % and 0.45 % NaCl 1,000 ML 100 ML IVCONT ×3 (01:16→22:25)
[2020-10-23] MEDS: cefTRIAXone sodium 1 GM in 0.9 % Sodium Chloride 50 ML IV (03:19)
[2020-10-23] MEDS: Azithromycin 500 MG TABLET PO (03:19)
[2020-10-23] MEDS: Enoxaparin Sodium 100 MG/ML SYRINGE 95 MG SUBCUT ×2 (03:20→21:54)
--- NOTE | 2020-10-23 05:33 | PC.NURSE ---
late entry: norvasc 5mg po given as ordered by Dr. Neely as 1 x order with improvement to 166/82 on recheck. (see emar) pt continues to be asymptomatic. oob to bsc to void without difficulty.
[2020-10-23] MEDS: Levothyroxine Sodium 100 MCG TABLET 300 MCG PO (05:50)
[2020-10-23 06:24] LABS: Hematocrit 36.2 % (37-47); Hemoglobin 12.8 g/dl (12.0-16.0); Mean Corpuscular HGB Conc 35.4 g/dl (31.0-35.0); Mean Corpuscular Hemoglobin 33.1 pg (27.0-33.0); Mean Corpuscular Volume 93.5 fL (80-98); Mean Platelet Volume 9.3 fL (9.4-12.3); Platelet Count 204 X10*3/uL (160-400); Red Blood Count 3.87 X10*6/uL (4.20-5.50); Red Cell Distribution Width 12.9 % (11.0-16.0); White Blood Count 9.9 X10*3/uL (4.8-10.8)
[2020-10-23 06:49] LABS: Anion Gap 13 (12-20); Blood Urea Nitrogen 7 mg/dL (9-16); Calcium 8.9 mg/dL (8.4-10.2); Carbon Dioxide 27 mmol/L (22-29); Chloride 102 mmol/L (96-108); Creatinine Clr Calc Pharmacy 124.3; Estimated Glomerular Filt Rate > 60; Glucose Random 125 mg/dL (60-115); Potassium 3.7 mmol/L (3.3-5.1); Sodium 138 mmol/L (135-145)
[2020-10-23 07:48] LABS: Estimated Average Glucose 108 mg/dL; Hemoglobin A1c % 5.4 %
[2020-10-23] MEDS: amLODIPine Besylate 5 MG TABLET 10 MG PO (09:20)
[2020-10-23] MEDS: Apixaban 5 MG TABLET 10 MG PO (09:21)
[2020-10-23 09:40] LABS: Procalcitonin 0.03 ng/mL
[2020-10-23 10:26] LABS: Hematocrit 39.5 % (37-47); Hemoglobin 14.1 g/dl (12.0-16.0); Mean Corpuscular HGB Conc 35.7 g/dl (31.0-35.0); Mean Corpuscular Hemoglobin 33.2 pg (27.0-33.0); Mean Corpuscular Volume 92.9 fL (80-98); Mean Platelet Volume 9.2 fL (9.4-12.3); Platelet Count 238 X10*3/uL (160-400); Red Blood Count 4.25 X10*6/uL (4.20-5.50); White Blood Count 11.6 X10*3/uL (4.8-10.8)
[2020-10-23 10:37] LABS: INTERNATIONAL NORM RATIO 1.3 (0.9-1.1); Prothrombin Time 14.4 SEC (9.9-13.0)
[2020-10-23 10:41] LABS: Cardiolipin IgG Ab <2.0 GPL-U/mL; Cardiolipin IgM Ab <2.0 MPL-U/mL
[2020-10-23 11:09] LABS: Partial Thromboplastin Time 112.6 SEC (24.1-38.0)
[2020-10-23] MEDS: ondansetron HCL 4 MG/2 ML VIAL IVPUSH (11:42)
[2020-10-23 13:31] LABS: DRVVT 1:1 Mix NOT CORRECTED (CORRECTED); DRVVT Confirmation POSITIVE (NEGATIVE); Hexagonal Phase Neutralization POSITIVE (NEGATIVE); PTT (LAC) Screen 81 sec (< OR = 40); Thrombin Clotting Time 21 sec (13-19)
--- NOTE | 2020-10-23 13:38 | PC.NURSE ---
0930 Episode of choking spell while taking meds. Unable to catch her breath. resulted in vomitting. Dr Noonan notified. speech/swallow eval ordered. Meds crushed in applesauce. 1130 c/o nausea. refused lunch. Zofran given 1330 Less nausea, but c/o headache at this time. Face flushed Assisted BTB,
[2020-10-23 14:21] LABS: Anti Nuclear Antibody Screen NEGATIVE (NEGATIVE)
[2020-10-23] MEDS: Acetaminophen Oral Liquid 650 MG/20.3 ML SOLUTION PO (14:34)
--- NOTE | 2020-10-23 15:46 | P.PNIM_ITS ---
Subjective Subjective Date of Service: 10/23/20 Interval History: Aspirated when trying to take pills; per pt, having dysphagia to solids and liquids for past few months Nauseous and vomiting C/o severe headache, midline, throbbing; no photophobia Review of Systems Review of Systems: Yes all other systems are reviewed and are negative Physical Exam Vital Signs: Vital Signs: Last Vital Signs Temp 98.7 F 10/23/20 11:54 Pulse 83 10/23/20 11:54 Resp 18 10/23/20 11:54 BP 172/86 H 10/23/20 11:54 Pulse Ox 95 10/23/20 11:54 Body Mass Index 32.8 Gen: in pain HEENT: sclera anicteric, moist mucus membranes Neck: supple Lungs: clear to auscultation bilaterally Heart: regular rate and rhythm, no murmurs Abd: soft, non-tender, non-distended Ext: RLE swelling to lower thigh Skin: warm/well-perfused Neuro: alert and oriented x3, no focal findings Psych: appropriate affect Objective Data Active Medications Acetaminophen (Acetaminophen Oral Liquid 650 Mg/20.3 Ml Solution) 650 mg PO Q4H PRN PRN Reason: headache Last Admin: 10/23/20 14:34 Dose: 650 mg Documented by: MONSTER Amlodipine Besylate (Amlodipine Besylate 5 Mg Tablet) 10 mg PO DAILY ON LICENSE OF [facility]; Protocol Last Admin: 10/23/20 09:20 Dose: 10 mg Documented by: MONSTER Azithromycin (Azithromycin 500 Mg Tablet) 500 mg PO Q24H SYED Last Admin: 10/23/20 03:19 Dose: 500 mg Documented by: LUZ MARINA Enoxaparin Sodium (Enoxaparin Sodium 100 Mg/Ml Syringe) 95 mg 1 mg/kg (95 mg) SUBCUT Q12H ON LICENSE OF [facility] Dextrose/Sodium Chloride (D51/2ns) 1,000 mls @ 100 mls/hr IVCONT .Q10H ON LICENSE OF [facility] Last Admin: 10/23/20 11:37 Dose: 100 mls/hr Documented by: MONSTER Ceftriaxone Sodium 1 gm/ (Sodium Chloride) 50 mls @ 100 mls/hr IV Q24H ON LICENSE OF [facility] Last Infusion: 10/23/20 03:45 Dose: 0 mls/hr Documented by: LUZ MARINA Levothyroxine Sodium (Levothyroxine Sodium 100 Mcg Tablet) 300 mcg PO DAILY@0600 ON LICENSE OF [facility] Last Admin: 10/23/20 05:50 Dose: 300 mcg Documented by: LUZ MARINA Melatonin (Melatonin 3 Mg Tablet) 6 mg PO BEDTIME PRN PRN Reason: Insomnia Ondansetron HCl (Ondansetron Hcl 4 Mg/2 Ml Vial) 4 mg IVPUSH Q4H PRN PRN Reason: nausea/vomiting Last Admin: 10/23/20 11:42 Dose: 4 mg Documented by: MONSTER Oxycodone HCl (Oxycodone Hcl Immed Release 5 Mg Tablet) 5 mg PO Q6H PRN PRN Reason: Pain, Severe (Pain Scale 7-10) Senna (Sennosides 8.6 Mg Tablet) 17.2 mg PO BEDTIME PRN PRN Reason: Constipation Sodium Chloride (0.9 % Sodium Chloride Flush 3 Ml Syringe) 3 ml IVFLUSH QSHIFT ON LICENSE OF [facility] Last Admin: 10/23/20 15:15 Dose: Not Given Documented by: BATOOL Non-Admin Reason: IV Running Labs CBC & Chem 7: 10/23/20 10:14 10/23/20 05:43 Labs: Laboratory Results - last 24 hr 10/22/20 10/22/20 10/22/20 00:42 05:33 11:15 MCV MCH MCHC RDW Plt Count MPV Absolute Nucleated RBC Nucleated RBC % (auto) PT INR APTT LA PTT Screen 81 H LA Thrombin Time 21 H dRVV Screen 82 H dRVVT Confirm Interp POSITIVE A dRVVT Mixing Study NOT CORRECTED A dRVVT Mix Interpret SEE NOTE Lupus Anticoag Interp SEE NOTE Anion Gap Estim Creat Clear Calc Estimated GFR Random Glucose Estimat Average Glucose Hemoglobin A1c % Calcium Procalcitonin SAMIR Screen NEGATIVE Anti-Cardiolipin IgG Ab <2.0 Anti-Cardiolipin IgM Ab <2.0 10/23/20 10/23/20 10/23/20 05:43 05:43 05:43 MCV 93.5 MCH 33.1 H MCHC 35.4 H RDW 12.9 Plt Count 204 MPV 9.3 L Absolute Nucleated RBC 0.000 Nucleated RBC % (auto) 0.0 PT INR APTT LA PTT Screen LA Thrombin Time dRVV Screen dRVVT Confirm Interp dRVVT Mixing Study dRVVT Mix Interpret Lupus Anticoag Interp Anion Gap 13 Estim Creat Clear Calc 124.3 Estimated GFR > 60 Random Glucose 125 H Estimat Average Glucose 108 Hemoglobin A1c % 5.4 Calcium 8.9 Procalcitonin SAMIR Screen Anti-Cardiolipin IgG Ab Anti-Cardiolipin IgM Ab 10/23/20 10/23/20 10/23/20 05:43 10:14 10:14 MCV 92.9 MCH 33.2 H MCHC 35.7 H RDW 13.0 Plt Count 238 MPV 9.2 L Absolute Nucleated RBC 0.000 Nucleated RBC % (auto) 0.0 PT 14.4 H D INR 1.3 H APTT 112.6 H* D LA PTT Screen LA Thrombin Time dRVV Screen dRVVT Confirm Interp dRVVT Mixing Study dRVVT Mix Interpret Lupus Anticoag Interp Anion Gap Estim Creat Clear Calc Estimated GFR Random Glucose Estimat Average Glucose Hemoglobin A1c % Calcium Procalcitonin 0.03 SAMIR Screen Anti-Cardiolipin IgG Ab Anti-Cardiolipin IgM Ab Assessment and Plan (1) DVT (deep venous thrombosis): Status: Acute Assessment and Plan: hospital d#2with hypothyroidism, Raynaud's, tobacco dependence admitted for RLE DVT, acute, with elevated PTT -> positive lupus anticoagulant # RLE DVT # APLAS - continue enoxaparin, start warfarin, Hematology following # acute headache - CT head, if negative will check MRV of head given APLAS # aspiration # dysphagia # esophageal wall thickening -?patient had similar findings on CT scan from 2019. dysphagia has been going on to solids and liquids over last few months. will consult [employer] and also consult GI # PNA, suspect aspiration - change ceftriaxone + azithromycin to ampicillin/sulbactam # HTN urgency - increased amlodipine to 10 mg/d # hypothyroidism - LT4 Quality Stroke Does the patient have a stroke diagnosis?: No VTE Prior VTE?: Yes Approximate Date of Prior VTE: 10/22/20 VTE Risk Level:: Medical - moderate - high VTE Device Contraindication: Treatment Not Indicated VTE Drug Contraindication: N/A - Med Ordered
[2020-10-23] MEDS: Morphine Sulfate 4 MG/ML CARTRIDGE 3 MG IVPUSH (16:32)
[2020-10-23] MEDS: Ampicillin Sodium/Sulbactam Na 3 GM in 0.9 % Sodium Chloride 100 ML IV ×2 (16:32→21:54)
--- NOTE | 2020-10-23 19:01 | MHC.SHP ---
Pre-Procedural Eval Section A Date of Service: 10/24/20 The patient is an INPATIENT: Yes The History & Physical has been completed within 30 days and I have reviewed it.: Yes Section B Chief Complaint: DVT Allergies: Allergies Allergy/AdvReac Type Severity Reaction Status Date / Time No Known Allergies Allergy Unverified 05/22/20 06:48 Plan I have reviewed the history and physical and performed a pertinent physical examination on my patient. No changes have occurred unless specified.
--- NOTE | 2020-10-23 19:01 | PM.EVENT ---
Event Note Date of Service: 10/23/20 Event Note: GI Consult-Full note dictated Imp: GERD. Dysphagia, Abnormal CT of distal esophagus Diff dx: Erosive esophagitis, Esophageal stricture, Doubt neoplasm Rec: EGD with possible Balloon dilation with MAC on 10/24. Full consent obtained, including risks of bleeding and perforation. I think it would be best to do now as an inpatient before she is chronically anticoagulated as an outpatient. D/W Dr. Noonan. D/W patient in detail and she is comfortable with this plan. Thanks
--- NOTE | 2020-10-23 19:45 | CONS_ITS ---
DATE OF SERVICE: 10/23/2020 REASON FOR CONSULTATION: Gastroesophageal reflux, dysphagia, and abnormal CT scan of esophagus. HISTORY OF PRESENT ILLNESS: The patient is a 55-year-old female, admitted to the hospital for treatment of a DVT in the right lower extremity. While here, she has described some dysphagia. Review of her CT scan from May of this year and 2019 describe thickening in the distal esophagus, although without any plant changer those 2 years. There does not appear to be any mass nor esophageal obstruction on those imaging studies. She did have an upper endoscopy with me in 2005 describing a small hiatal hernia and minimal changes of reflux, but no esophagitis nor stricture. Biopsies from the gastroesophageal junction at that time revealed only some mild chronic inflammation and no sign of Moore's esophagus. She did have a barium swallow in 2005 describing the hiatal hernia, but no other abnormalities. She describes that she does use some medication, probably omeprazole, intermittently for heartburn, but not on a regular basis. She describes a fairly longstanding history of intermittent dysphagia to solid foods such as bread. She describes occasionally feeling the food gets stuck and having to walk around until it relieves itself. She will occasionally have to regurgitate to get the food to come up. The episodes of dysphagia do not occur daily. She has not lost any weight. She enjoys good appetite otherwise. She denies any abdominal pains. She has not noticed any jaundice. She describes that her bowel movements are fairly regular and without any signs of bleeding. MEDICATIONS: Her medications at home included acetaminophen, levothyroxine, and omeprazole. Her medications here in the hospital include amlodipine, acetaminophen, Unasyn, Lovenox, Coumadin, levothyroxine, melatonin, morphine p.r.n., Zofran p.r.n., oxycodone p.r.n., Senokot p.r.n. Of note, her Coumadin was just started today. PAST MEDICAL HISTORY: Cholecystectomy. Gastroesophageal reflux with upper endoscopy in 2005 as described above. Raynaud's disease. She denies any history of heart disease, diabetes, stroke, lung disease, or kidney disease. SOCIAL HISTORY: She does smoke. She denies any significant alcohol use. FAMILY HISTORY: Noncontributory. REVIEW OF SYSTEMS: CONSTITUTIONAL: Up until the past week or so, she had been feeling well until her right leg started to bother her. SKIN: No rash. No pruritus. CARDIAC: No chest pain. PULMONARY: No cough. No hemoptysis. GASTROINTESTINAL: As above. PHYSICAL EXAMINATION: GENERAL: The patient is a pleasant, alert, comfortable appearing female. SKIN: Warm and dry. HEENT: Anicteric sclerae. NECK: Supple. CHEST: Clear. CARDIAC: Normal S1 and S2. ABDOMEN: Soft, nondistended, nontender. There is no palpable mass. LABORATORY DATA: CAT scan in May 2020 describes the thickening of the distal esophagus with similar changes seen on the CAT scan in November 2018. There was no sign of any mass. Chest x-ray from yesterday was clear. Head CT was negative. White blood cell count 11.6, hemoglobin 14.1, platelets 238,000. PT 14.4 with INR of 1.3. PTT was 112.6. She apparently has been found to have a positive lupus anticoagulant. Normal electrolytes. BUN 7, creatinine 0.6. She had a normal liver profile on October 21. COVID was negative. IMPRESSION: Given the patient's symptomatology, history of reflux, and the CAT scans over the past couple of years, I suspect she does have some ongoing chronic reflux with possible esophagitis and/or esophageal stricture formation. As such, she should undergo upper endoscopy for further evaluation with possible balloon dilation. Given that she is having episodes of what sound like temporary esophageal obstruction, I would recommend we try to do the procedure sooner rather than later. As such, I shall schedule this for tomorrow while she is an inpatient before the Coumadin becomes therapeutic. Otherwise, if we wait as an outpatient, it would require either bridging of the Coumadin with Lovenox or waiting until she is off the Coumadin, which could be at least 6 months. I did review this with her hospitalist, Dr. Noonan, and he thinks she would be stable to have the procedure tomorrow. The upper endoscopy with possible balloon dilation with monitored anesthesia care will be scheduled for tomorrow. Full consent has been obtained from her for that, including risks of bleeding and perforation. I would continue her PPI. This has been discussed with the patient in detail and she is comfortable with that plan. Thank you for the consultation. MD TRACY Riddle/NGHIA / [phone] MTDD
[2020-10-23] MEDS: Warfarin Sodium 5 MG TABLET PO (20:19)
[2020-10-23] MEDS: Omeprazole 40 MG CAPSULE.DR PO (20:19)
[2020-10-24] VITALS (9 sets, daily range): BP systolic 103–179; BP diastolic 50–98; PULSE 67–85; RESP 14–20; TEMP 36.1–37; O2SAT 94–97
[2020-10-24] MEDS: Ampicillin Sodium/Sulbactam Na 3 GM in 0.9 % Sodium Chloride 100 ML IV ×4 (03:34→21:40)
[2020-10-24] MEDS: Omeprazole 40 MG CAPSULE.DR PO (05:50)
[2020-10-24] MEDS: Levothyroxine Sodium 100 MCG TABLET 300 MCG PO (05:50)
[2020-10-24 06:57] LABS: INTERNATIONAL NORM RATIO 1.2 (0.9-1.1); Prothrombin Time 14.2 SEC (9.9-13.0)
[2020-10-24 06:59] LABS: Hemoglobin 13.1 g/dl (12.0-16.0); Mean Corpuscular HGB Conc 34.5 g/dl (31.0-35.0); Mean Corpuscular Hemoglobin 32.4 pg (27.0-33.0); Mean Corpuscular Volume 94.1 fL (80-98); Mean Platelet Volume 9.4 fL (9.4-12.3); Platelet Count 244 X10*3/uL (160-400); Red Blood Count 4.04 X10*6/uL (4.20-5.50); Red Cell Distribution Width 12.8 % (11.0-16.0); White Blood Count 9.2 X10*3/uL (4.8-10.8)
--- NOTE | 2020-10-24 08:47 | PM.EVENT ---
Positivity for lupus anticoagulant Lupus anticoagulant test was sent to [facility] laboratory after negative results from [facility], [place]. This showed persistent elevation of both PTT as well as positivity for lupus anticoagulant. In light of this, I recommend that patient be switched to warfarin rather than Eliquis for long-term anticoagulation. Lupus anticoagulant test will be repeated in 3 months. She is a candidate for long-term anticoagulation. Thank you.
[2020-10-24] MEDS: 0.9 % Sodium Chloride Flush 3 ML SYRINGE IVFLUSH ×2 (09:37→17:26)
[2020-10-24] MEDS: Dextrose 5 % and 0.45 % NaCl 1,000 ML 100 ML IVCONT (09:37)
[2020-10-24] MEDS: ondansetron HCL 4 MG/2 ML VIAL IVPUSH (09:37)
[2020-10-24] MEDS: amLODIPine Besylate 5 MG TABLET 10 MG PO (09:41)
--- NOTE | 2020-10-24 10:23 | HO.ANESPROP2 ---
HPI - Anesthesia Eval Consult details Narrative: 55yo female patient for EGD, balloon dilatation PMFSH Active Problems Active Problems: All Active Problems (Updated 10/22/20 @ 12:48 by Anali Tamayo MD) Dysphagia (Acute). Patient states that she aspirates when swallowing pills Screening for colon cancer (Acute) Physical exam (Acute) Postmenopausal (Acute) Screening for cervical cancer (Acute) Screening for breast cancer (Acute) Bilateral knee pain (Acute) Systolic murmur (Acute) DVT (deep venous thrombosis) (Acute) Positive lupus anticoagulant just diagnosed- elevated PTT with normal PT, INR. Had dose of warfarin and lovenox last night. Dr Fraire aware Past Medical History Medical History Hypothyroid Kidney stone Raynaud's disease without gangrene Family History Family History Father Liver cancer Mother Hypertension Family history of problems with anesthesia: No Surgical History History of Problems with Anesthesia: No Social History Social History Household Members: Spouse Housing: House Do you presently have visiting nurse or other home services: No Alcohol intake: never Patient Tobacco Use Status: Current everyday Tobacco user Tobacco use type: Cigarette Cigarette Packs Per Day: 0.5 Cigarettes Per Day: 10.0 Smoked in Last 30 Days: Yes e-Cigarette/Vaping Use: Never Used Patient Interested in Nicotine Replacement: No Patient Given Instructions on How to Stop Smoking: Yes Date Education Initiated: 10/22/20 Second Hand Smoke Exposure: No Use of substances other than those prescribed or required for medical reasons: No Currently Displaying Signs/Symptoms of Drug Intoxication Withdrawal: No Have you been hit, kicked, punched, or otherwise hurt by someone within the past year? If so, by whom?: No Do you feel safe in your current relationship?: Yes Is there a partner from a previous relationship who is making you feel unsafe now?: No Are you made to feel afraid or neglected: No Are you DNR?: No Advance Directives: No Advance Directives Information Provided: Yes Advance Directives on File: No Do you have thoughts of harming others: None Do you have a plan to hurt others: No Plan Recently lost weight without trying: No How much weight loss: Not applicable Eating poorly because of decreased appetite: Yes Nutrition screen score: 1 Nutrition Risks: No Nutritional Risk Patient : No : No Poor oral hygiene: No service: No Current occupational status: employed Meds Allergies Allergy/AdvReac Type Severity Reaction Status Date / Time No Known Allergies Allergy Unverified 05/22/20 06:48 Active Medications: Current Medications Generic Name Dose Route Start Last Admin Trade Name Freq PRN Reason Stop Dose Admin Acetaminophen 650 mg 10/23/20 13:38 10/23/20 14:34 Acetaminophen Oral Liquid 650 Mg/20.3 Ml Solution PO 650 mg Q4H PRN Administration headache Amlodipine Besylate 10 mg 10/23/20 09:00 10/24/20 09:41 Amlodipine Besylate 5 Mg Tablet PO 10 mg DAILY SYED Administration Protocol Enoxaparin Sodium 95 mg 10/23/20 22:00 10/23/20 21:54 Enoxaparin Sodium 100 Mg/Ml Syringe 1 mg/kg (95 mg) 95 mg SUBCUT Administration Q12H SYED Dextrose/Sodium Chloride 1,000 mls @ 100 mls/hr 10/22/20 02:15 10/24/20 10:14 D51/2ns IVCONT 0 mls/hr .Q10H SYED Infusion Ampicillin Sodium/Sulbactam 100 mls @ 200 mls/hr 10/23/20 16:00 10/24/20 10:12 Sodium 3 gm/ Sodium Chloride IV Infused Q6H SYED Infusion Levothyroxine Sodium 300 mcg 10/22/20 06:00 10/24/20 05:50 Levothyroxine Sodium 100 Mcg Tablet PO 300 mcg DAILY@0600 SYED Administration Melatonin 6 mg 10/22/20 02:06 Melatonin 3 Mg Tablet PO BEDTIME PRN Insomnia Morphine Sulfate 3 mg 10/23/20 16:11 10/23/20 16:32 Morphine Sulfate 4 Mg/Ml Cartridge IVPUSH 3 mg Q4H PRN Administration severe pain Protocol Omeprazole 40 mg 10/23/20 19:00 10/24/20 05:50 Omeprazole 40 Mg Capsule.Dr PO 40 mg DAILY@0630 SYED Administration Ondansetron HCl 4 mg 10/23/20 11:17 10/24/20 09:37 Ondansetron Hcl 4 Mg/2 Ml Vial IVPUSH 4 mg Q4H PRN Administration nausea/vomiting Oxycodone HCl 5 mg 10/22/20 02:06 Oxycodone Hcl Immed Release 5 Mg Tablet PO Q6H PRN Pain, Severe (Pain Scale 7-10) Senna 17.2 mg 10/22/20 02:06 Sennosides 8.6 Mg Tablet PO BEDTIME PRN Constipation Sodium Chloride 3 ml 10/22/20 08:00 10/24/20 09:37 0.9 % Sodium Chloride Flush 3 Ml Syringe IVFLUSH 3 ml QSHIFT SYED Administration Warfarin Sodium 5 mg 10/23/20 21:00 10/23/20 20:19 Warfarin Sodium 5 Mg Tablet PO 5 mg DAILY@1800 SYED Administration Exam Exam Date and Time: October 24, 2020 1023 Height,Weight and Vital Signs: Height 5 ft 7 in Weight 95.254 kg Last Vital Signs Temp 98.4 F 10/24/20 08:00 Pulse 73 10/24/20 09:41 Resp 18 10/24/20 08:00 BP 179/94 H 10/24/20 09:41 Pulse Ox 95 10/24/20 08:00 Pertinent Lab Results Pertinent Lab Results: Laboratory Tests 10/21/20 10/21/20 10/21/20 23:51 23:51 23:51 WBC 9.1 RBC 3.54 L Hgb 11.9 L Hct 33.9 L MCV 95.8 MCH 33.6 H MCHC 35.1 H RDW 13.2 Plt Count 157 L MPV 9.1 L Immature Gran % (Auto) 1.0 H Neut % (Auto) 66.6 Lymph % (Auto) 22.2 Mclean % (Auto) 8.1 Eos % (Auto) 1.8 Baso % (Auto) 0.3 Lymph # (Auto) 2.0 Mclean # (Auto) 0.7 Eos # (Auto) 0.2 Baso # (Auto) 0.0 Abs Immat Gran (auto) 0.09 H Absolute Neuts (auto) 6.0 Absolute Nucleated RBC 0.000 Nucleated RBC % (auto) 0.0 PT 11.8 INR 1.0 APTT 72.0 H* PT Mixing Study PT Normal Plasma Immed PTT Mixing Study PTT Normal Plasma Immed PTT Normal Plasma Post Mixing Interpretation LA PTT Screen LA Thrombin Time dRVV Screen dRVVT Confirm Interp dRVVT Mixing Study dRVVT Mix Interpret Lupus Anticoag Interp Sodium 139 Potassium 3.6 Chloride 103 Carbon Dioxide 31 H Anion Gap 9 L BUN 13 Creatinine 0.84 Estim Creat Clear Calc 91.7 Estimated GFR > 60 Random Glucose 103 Estimat Average Glucose Hemoglobin A1c % Calcium 8.8 Total Bilirubin 0.3 Direct Bilirubin < 0.2 AST 27 ALT 23 Alkaline Phosphatase 82 B-Natriuretic Peptide Total Protein 7.2 Albumin 3.7 Procalcitonin SAMIR Screen SAMIR Titer SAMIR Titer 2 SAMIR Titer 3 SAMIR Pattern SAMIR Pattern 2 SAMIR Pattern 3 Anti-Cardiolipin IgG Ab Anti-Cardiolipin IgM Ab COVID-19 (K[facility]I) COVID-19 Clin Com 10/21/20 10/22/20 10/22/20 23:51 00:42 00:42 WBC RBC Hgb Hct MCV MCH MCHC RDW Plt Count MPV Immature Gran % (Auto) Neut % (Auto) Lymph % (Auto) Mclean % (Auto) Eos % (Auto) Baso % (Auto) Lymph # (Auto) Mclean # (Auto) Eos # (Auto) Baso # (Auto) Abs Immat Gran (auto) Absolute Neuts (auto) Absolute Nucleated RBC Nucleated RBC % (auto) PT INR APTT 75.0 H* PT Mixing Study PT Normal Plasma Immed PTT Mixing Study PTT Normal Plasma Immed PTT Normal Plasma Post Mixing Interpretation LA PTT Screen LA Thrombin Time dRVV Screen dRVVT Confirm Interp dRVVT Mixing Study dRVVT Mix Interpret Lupus Anticoag Interp Sodium Potassium Chloride Carbon Dioxide Anion Gap BUN Creatinine Estim Creat Clear Calc Estimated GFR Random Glucose Estimat Average Glucose Hemoglobin A1c % Calcium Total Bilirubin Direct Bilirubin AST ALT Alkaline Phosphatase B-Natriuretic Peptide 75 Total Protein Albumin Procalcitonin SAMIR Screen NEGATIVE SAMIR Titer TNP SAMIR Titer 2 TNP SAMIR Titer 3 TNP SAMIR Pattern TNP SAMIR Pattern 2 TNP SAMIR Pattern 3 TNP Anti-Cardiolipin IgG Ab Anti-Cardiolipin IgM Ab COVID-19 (KAMI) COVID-19 Clin Com 10/22/20 10/22/20 10/22/20 00:42 02:19 05:33 WBC RBC Hgb Hct MCV MCH MCHC RDW Plt Count MPV Immature Gran % (Auto) Neut % (Auto) Lymph % (Auto) Mclean % (Auto) Eos % (Auto) Baso % (Auto) Lymph # (Auto) Mclean # (Auto) Eos # (Auto) Baso # (Auto) Abs Immat Gran (auto) Absolute Neuts (auto) Absolute Nucleated RBC Nucleated RBC % (auto) PT INR APTT PT Mixing Study SEE NOTE Cancelled PT Normal Plasma Immed SEE NOTE Cancelled PTT Mixing Study SEE NOTE Cancelled PTT Normal Plasma Immed SEE NOTE Cancelled PTT Normal Plasma Post SEE NOTE Cancelled Mixing Interpretation SEE NOTE Cancelled LA PTT Screen 81 H LA Thrombin Time 21 H dRVV Screen 82 H dRVVT Confirm Interp POSITIVE A dRVVT Mixing Study NOT CORRECTED A dRVVT Mix Interpret SEE NOTE Lupus Anticoag Interp SEE NOTE Sodium Potassium Chloride Carbon Dioxide Anion Gap BUN Creatinine Estim Creat Clear Calc Estimated GFR Random Glucose Estimat Average Glucose Hemoglobin A1c % Calcium Total Bilirubin Direct Bilirubin AST ALT Alkaline Phosphatase B-Natriuretic Peptide Total Protein Albumin Procalcitonin SAMIR Screen SAMIR Titer SAMIR Titer 2 SAMIR Titer 3 SAMIR Pattern SAMIR Pattern 2 SAMIR Pattern 3 Anti-Cardiolipin IgG Ab Anti-Cardiolipin IgM Ab COVID-19 (KAMI) Negative COVID-19 Clin Com See Note 10/22/20 10/22/20 10/22/20 05:33 05:33 11:15 WBC 9.2 RBC 3.65 L Hgb 12.1 Hct 35.1 L MCV 96.2 MCH 33.2 H MCHC 34.5 RDW 13.1 Plt Count 170 MPV 9.5 Immature Gran % (Auto) 0.9 H Neut % (Auto) 62.8 Lymph % (Auto) 26.2 Mclean % (Auto) 7.8 Eos % (Auto) 1.9 Baso % (Auto) 0.4 Lymph # (Auto) 2.4 Mclean # (Auto) 0.7 Eos # (Auto) 0.2 Baso # (Auto) 0.0 Abs Immat Gran (auto) 0.08 H Absolute Neuts (auto) 5.8 Absolute Nucleated RBC 0.000 Nucleated RBC % (auto) 0.0 PT INR APTT PT Mixing Study PT Normal Plasma Immed PTT Mixing Study PTT Normal Plasma Immed PTT Normal Plasma Post Mixing Interpretation LA PTT Screen LA Thrombin Time dRVV Screen dRVVT Confirm Interp dRVVT Mixing Study dRVVT Mix Interpret Lupus Anticoag Interp Sodium 140 Potassium 3.6 Chloride 100 Carbon Dioxide 28 Anion Gap 16 BUN 11 Creatinine 0.65 Estim Creat Clear Calc 118.6 Estimated GFR > 60 Random Glucose 112 Estimat Average Glucose Hemoglobin A1c % Calcium 8.7 Total Bilirubin Direct Bilirubin AST ALT Alkaline Phosphatase B-Natriuretic Peptide Total Protein Albumin Procalcitonin SAMIR Screen SAMIR Titer SAMIR Titer 2 SAMIR Titer 3 SAMIR Pattern SAMIR Pattern 2 SAMIR Pattern 3 Anti-Cardiolipin IgG Ab <2.0 Anti-Cardiolipin IgM Ab <2.0 COVID-19 (KAMI) COVID-19 Clin Com 10/23/20 10/23/20 10/23/20 05:43 05:43 05:43 WBC 9.9 RBC 3.87 L Hgb 12.8 Hct 36.2 L MCV 93.5 MCH 33.1 H MCHC 35.4 H RDW 12.9 Plt Count 204 MPV 9.3 L Immature Gran % (Auto) Neut % (Auto) Lymph % (Auto) Mclean % (Auto) Eos % (Auto) Baso % (Auto) Lymph # (Auto) Mclean # (Auto) Eos # (Auto) Baso # (Auto) Abs Immat Gran (auto) Absolute Neuts (auto) Absolute Nucleated RBC 0.000 Nucleated RBC % (auto) 0.0 PT INR APTT PT Mixing Study PT Normal Plasma Immed PTT Mixing Study PTT Normal Plasma Immed PTT Normal Plasma Post Mixing Interpretation LA PTT Screen LA Thrombin Time dRVV Screen dRVVT Confirm Interp dRVVT Mixing Study dRVVT Mix Interpret Lupus Anticoag Interp Sodium 138 Potassium 3.7 Chloride 102 Carbon Dioxide 27 Anion Gap 13 BUN 7 L Creatinine 0.62 Estim Creat Clear Calc 124.3 Estimated GFR > 60 Random Glucose 125 H Estimat Average Glucose 108 Hemoglobin A1c % 5.4 Calcium 8.9 Total Bilirubin Direct Bilirubin AST ALT Alkaline Phosphatase B-Natriuretic Peptide Total Protein Albumin Procalcitonin SAMIR Screen SAMIR Titer SAMIR Titer 2 SAMIR Titer 3 SAMIR Pattern SAMIR Pattern 2 SAMIR Pattern 3 Anti-Cardiolipin IgG Ab Anti-Cardiolipin IgM Ab COVID-19 (KAMI) COVID-19 Clin Com 10/23/20 10/23/20 10/23/20 05:43 10:14 10:14 WBC 11.6 H RBC 4.25 Hgb 14.1 Hct 39.5 MCV 92.9 MCH 33.2 H MCHC 35.7 H RDW 13.0 Plt Count 238 MPV 9.2 L Immature Gran % (Auto) Neut % (Auto) Lymph % (Auto) Mclean % (Auto) Eos % (Auto) Baso % (Auto) Lymph # (Auto) Mclean # (Auto) Eos # (Auto) Baso # (Auto) Abs Immat Gran (auto) Absolute Neuts (auto) Absolute Nucleated RBC 0.000 Nucleated RBC % (auto) 0.0 PT 14.4 H D INR 1.3 H APTT 112.6 H* D PT Mixing Study PT Normal Plasma Immed PTT Mixing Study PTT Normal Plasma Immed PTT Normal Plasma Post Mixing Interpretation LA PTT Screen LA Thrombin Time dRVV Screen dRVVT Confirm Interp dRVVT Mixing Study dRVVT Mix Interpret Lupus Anticoag Interp Sodium Potassium Chloride Carbon Dioxide Anion Gap BUN Creatinine Estim Creat Clear Calc Estimated GFR Random Glucose Estimat Average Glucose Hemoglobin A1c % Calcium Total Bilirubin Direct Bilirubin AST ALT Alkaline Phosphatase B-Natriuretic Peptide Total Protein Albumin Procalcitonin 0.03 SAMIR Screen SAMIR Titer SAMIR Titer 2 SAMIR Titer 3 SAMIR Pattern SAMIR Pattern 2 SAMIR Pattern 3 Anti-Cardiolipin IgG Ab Anti-Cardiolipin IgM Ab COVID-19 (KAMI) COVID-19 Clin Com 10/24/20 10/24/20 05:57 05:57 WBC 9.2 RBC 4.04 L Hgb 13.1 Hct 38.0 MCV 94.1 MCH 32.4 MCHC 34.5 RDW 12.8 Plt Count 244 MPV 9.4 Immature Gran % (Auto) Neut % (Auto) Lymph % (Auto) Mclean % (Auto) Eos % (Auto) Baso % (Auto) Lymph # (Auto) Mclean # (Auto) Eos # (Auto) Baso # (Auto) Abs Immat Gran (auto) Absolute Neuts (auto) Absolute Nucleated RBC 0.000 Nucleated RBC % (auto) 0.0 PT 14.2 H INR 1.2 H APTT PT Mixing Study PT Normal Plasma Immed PTT Mixing Study PTT Normal Plasma Immed PTT Normal Plasma Post Mixing Interpretation LA PTT Screen LA Thrombin Time dRVV Screen dRVVT Confirm Interp dRVVT Mixing Study dRVVT Mix Interpret Lupus Anticoag Interp Sodium Potassium Chloride Carbon Dioxide Anion Gap BUN Creatinine Estim Creat Clear Calc Estimated GFR Random Glucose Estimat Average Glucose Hemoglobin A1c % Calcium Total Bilirubin Direct Bilirubin AST ALT Alkaline Phosphatase B-Natriuretic Peptide Total Protein Albumin Procalcitonin SAMIR Screen SAMIR Titer SAMIR Titer 2 SAMIR Titer 3 SAMIR Pattern SAMIR Pattern 2 SAMIR Pattern 3 Anti-Cardiolipin IgG Ab Anti-Cardiolipin IgM Ab COVID-19 (KAMI) COVID-19 Clin Com Airway Mallampati Class: II TM Dist: >3cm Neck ROM: Full Denture: Upper Heart: RRR Lungs: CTAB Assessment and Plan Assessment Anesthesia Assessment: Anesthesia Plan Discussed and Chart Reviewed Final Anesthetic Review Family History of Problems with Anesthesia: No History of Problems with Anesthesia: No NPO: Yes ASA Class: III Final Preanesthetic Review: No Changes in Pt Med Stat, Meds/Allgs Chart Reviewed, Consent Obtained/Reviewed and Anes Risks/Benef Reviewed Patient Risk: Intermediate Procedure Risk: Low Assessment/Block/Sedation in SS: Assess/Block/Sedation-SS Anesthetic Plan Anesthetic Plan: MAC: Disposition: Standard PACU and Inp. Admit - IMC
[2020-10-24] MEDS: Lactated Ringers 1,000 ML 100 ML IVCONT (10:37)
--- NOTE | 2020-10-24 11:41 | PM.OP ---
Brief Operative Note Date of Service: 10/24/20 Pre-op diagnosis: Dysphagia, GERD, Abnormal CT of esophagus Post-op diagnosis: other (Mild distal esophageal stricture, small hiatal hernia, GERD) Procedure: EGD with Balloon Dilation of EG Junction Surgeon: German Fraire Anesthesia: MAC Was an Senior Copywriter used for this Procedure?: No Estimated blood loss (mL): 2.0 Pathology: none sent Condition: stable Disposition: PACU
--- NOTE | 2020-10-24 11:42 | P.EN_ITS ---
Event Note Date of Service: 10/24/20 Event Note: GI-EGD-Full note dictated Findings: 1. Mild distal esophageal stricture dilated with a 15mm, 16.5mm and 18mm balloon with good effect. 2. GERD, but no active esophagitis, tumor, nor Moore's 3. Small hiatal hernia Plan: Advance diet. Resume anticoagulation. snf PPI with 40 mg omeprazole QD x 2 months, then 20mg QD correction. She can see in followup and we can set up a screening colonoscopy for her at some point when she is off anticoagulation. Thanks
--- NOTE | 2020-10-24 11:50 | MHC.CM.PN ---
Per ROUNDS discussion, Patient is not yet medically cleared for dc (IV Ampicillin, S/S Aspiration and testing needed). Home is the goal for dc and CM will follow for possible need to adjust the dc plan.
[2020-10-24 12:26] LABS: Von Willebrand Factor Antigen 224 % (50-217)
--- NOTE | 2020-10-24 12:52 | OP_ITS ---
SURGEON: German Fraire MD INDICATIONS: The patient presents for evaluation of gastroesophageal reflux, dysphagia, and abnormal CT scan of esophagus. Full consent has been obtained from her for this, including risks of bleeding and perforation. PREOPERATIVE DIAGNOSIS: POSTOPERATIVE DIAGNOSIS: PROCEDURE PERFORMED: Esophagogastroduodenoscopy with balloon dilation. ESTIMATED BLOOD LOSS: COMPLICATIONS: ANESTHESIA: Monitored anesthesia care. ASSISTANTS: SPECIMENS: PREOPERATIVE DIAGNOSES: Dysphagia, gastroesophageal reflux, abnormal CT scan of esophagus. POSTOPERATIVE DIAGNOSES: Dysphagia, gastroesophageal reflux, abnormal CT scan of esophagus, mild distal esophageal stricture, small hiatal hernia, gastroesophageal reflux. DESCRIPTION OF PROCEDURE: The patient was placed in the left lateral decubitus position. The Olympus video gastroscope was passed in the posterior oropharynx and upper esophagus under direct vision. The scope was passed slowly into the distal esophagus. The gastroesophageal junction appeared at 36 cm. This area was notable for some edema, erythema, and a mild stricture. The scope popped passed this easily and into the stomach. There was a small hiatal hernia. The scope was advanced to the pylorus and the duodenum was cannulated to the descending portion. The duodenum including the bulb appeared normal without mass or ulceration. The scope was withdrawn back into the stomach. The gastric antrum and body appeared normal with good peristalsis. Scope was retroflexed visualizing the proximal stomach carefully, which appeared normal, without any sign of mass or ulceration. The scope was straightened out and withdrawn back into the esophagus. Given the findings and her symptoms, I did use a [employer] incremental balloon to dilate the esophagogastric junction from 15 mm to 16.5 mm to 18 mm at the recommended pressure for 60 seconds each. Post dilation, there was a small amount of heme noted and was definitely easier to move the scope into and out of the stomach. The scope was withdrawn through the remainder of the esophagus which appeared normal. Scope was withdrawn from the patient. She tolerated the procedure well and was returned to the recovery area in stable condition. IMPRESSION: 1. Mild distal esophageal stricture, status post balloon dilation. 2. Hiatal hernia. 3. Gastroesophageal reflux. PLAN: The patient will remain on omeprazole 40 mg daily. I would recommend to continue that for 2 months and then switch to 20 mg daily snf. Her diet will be advanced today. She can resume her anticoagulation. MD TRACY Riddle/NGHIA / [phone]
--- NOTE | 2020-10-24 13:56 | PM.EVENT ---
Event Note Date of Service: 10/24/20 Event Note: This consult was erroneously placed to over list
--- NOTE | 2020-10-24 14:54 | HO.PM.IMPN ---
Subjective Subjective Date of Service: 10/24/20 Interval History: asp ? esophageal stricture , dvt Review of Systems denies Physical Exam Vital Signs: Vital Signs: Last Vital Signs Temp 98.0 F 10/24/20 11:52 Pulse 74 10/24/20 11:52 Resp 16 10/24/20 11:52 BP 108/56 L 10/24/20 11:52 Pulse Ox 95 10/24/20 11:52 Body Mass Index 32.8 HEENT: sclera anicteric, moist mucus membranes Neck: supple Lungs: clear to auscultation bilaterally Heart: regular rate and rhythm, no murmurs Abd: soft, non-tender, non-distended Ext: RLE swelling to lower thigh Skin: warm/well-perfused Neuro: alert and oriented x3, no focal findings Psych: appropriate affect Objective Data Active Medications Acetaminophen (Acetaminophen Oral Liquid 650 Mg/20.3 Ml Solution) 650 mg PO Q4H PRN PRN Reason: headache Last Admin: 10/23/20 14:34 Dose: 650 mg Documented by: MONSTER Amlodipine Besylate (Amlodipine Besylate 5 Mg Tablet) 10 mg PO DAILY [facility]; Protocol Last Admin: 10/24/20 09:41 Dose: 10 mg Documented by: RABIA Enoxaparin Sodium (Enoxaparin Sodium 100 Mg/Ml Syringe) 95 mg 1 mg/kg (95 mg) SUBCUT Q12H [facility] Last Admin: 10/23/20 21:54 Dose: 95 mg Documented by: BATOOL Dextrose/Sodium Chloride (D51/2ns) 1,000 mls @ 100 mls/hr IVCONT .Q10H [facility] Last Infusion: 10/24/20 12:23 Dose: 100 mls/hr Documented by: RABIA Ampicillin Sodium/Sulbactam (Sodium 3 gm/ Sodium Chloride) 100 mls @ 200 mls/hr IV Q6H [facility] Last Infusion: 10/24/20 10:12 Dose: 0 mls/hr Documented by: RABIA Lactated Ringer's (Lr) 1,000 mls @ 100 mls/hr IVCONT .Q10H [facility] Last Infusion: 10/24/20 11:43 Dose: 100 mls/hr Documented by: JUANCHO Levothyroxine Sodium (Levothyroxine Sodium 100 Mcg Tablet) 300 mcg PO DAILY@0600 [facility] Last Admin: 10/24/20 05:50 Dose: 300 mcg Documented by: VINCENT Melatonin (Melatonin 3 Mg Tablet) 6 mg PO BEDTIME PRN PRN Reason: Insomnia Morphine Sulfate (Morphine Sulfate 4 Mg/Ml Cartridge) 3 mg IVPUSH Q4H PRN; Protocol PRN Reason: severe pain Last Admin: 10/23/20 16:32 Dose: 3 mg Documented by: BATOOL Omeprazole (Omeprazole 40 Mg Capsule.Dr) 40 mg PO DAILY@0630 [facility] Last Admin: 10/24/20 05:50 Dose: 40 mg Documented by: VINCENT Ondansetron HCl (Ondansetron Hcl 4 Mg/2 Ml Vial) 4 mg IVPUSH Q4H PRN PRN Reason: nausea/vomiting Last Admin: 10/24/20 09:37 Dose: 4 mg Documented by: RABIA Ondansetron HCl (Ondansetron Hcl 4 Mg/2 Ml Vial) 4 mg IVPUSH ONCE PRN PRN Reason: Nausea and Vomiting Oxycodone HCl (Oxycodone Hcl Immed Release 5 Mg Tablet) 5 mg PO Q6H PRN PRN Reason: Pain, Severe (Pain Scale 7-10) Senna (Sennosides 8.6 Mg Tablet) 17.2 mg PO BEDTIME PRN PRN Reason: Constipation Sodium Chloride (0.9 % Sodium Chloride Flush 3 Ml Syringe) 3 ml IVFLUSH QSHIFT [facility] Last Admin: 10/24/20 09:37 Dose: 3 ml Documented by: RABIA Warfarin Sodium (Warfarin Sodium 5 Mg Tablet) 5 mg PO DAILY@1800 [facility] Last Admin: 10/23/20 20:19 Dose: 5 mg Documented by: BATOOL Labs CBC & Chem 7: 10/24/20 05:57 10/23/20 05:43 Labs: Laboratory Results - last 24 hr 10/22/20 10/22/20 10/24/20 00:42 05:33 05:57 MCV 94.1 MCH 32.4 MCHC 34.5 RDW 12.8 Plt Count 244 MPV 9.4 Absolute Nucleated RBC 0.000 Nucleated RBC % (auto) 0.0 PT INR Hexagon Phase Neutraliz POSITIVE A von Willebrand Antigen 224 H SAMIR Titer TNP SAMIR Titer 2 TNP SAMIR Titer 3 TNP SAMIR Pattern TNP SAMIR Pattern 2 TNP SAMIR Pattern 3 TNP 10/24/20 05:57 MCV MCH MCHC RDW Plt Count MPV Absolute Nucleated RBC Nucleated RBC % (auto) PT 14.2 H INR 1.2 H Hexagon Phase Neutraliz von Willebrand Antigen SAMIR Titer SAMIR Titer 2 SAMIR Titer 3 SAMIR Pattern SAMIR Pattern 2 SAMIR Pattern 3 Assessment and Plan (1) Dysphagia: Status: Acute (2) DVT (deep venous thrombosis): Status: Acute Assessment and Plan: Pat with hypothyroidism, Raynaud's, tobacco dependence admitted for RLE DVT, acute, with elevated PTT -> positive lupus anticoagulant 1. 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 acute headache - CT head, if negative will check MRV of head given APLAS , headaches improving ,agrees to MRV with ativan 3. aspiration # dysphagia # esophageal wall thickening -?patient had similar findings on CT scan from 2019.? dysphagia has been going on to solids and liquids over last few months.? will consult STILL OPERATOR GIN and also consult GI 4. PNA, suspect aspiration - change ceftriaxone + azithromycin to ampicillin/sulbactam 5.HTN urgency - increased amlodipine to 10 mg/d 6. hypothyroidism - LT4 Quality Stroke Does the patient have a stroke diagnosis?: No VTE Prior VTE?: Yes Approximate Date of Prior VTE: 10/22/20 VTE Risk Level:: Medical - moderate - high VTE Device Contraindication: Treatment Not Indicated VTE Drug Contraindication: N/A - Med Ordered
--- NOTE | 2020-10-24 15:08 | MHC.SL.SWA ---
Speech Pathologist Impression: Esophageal Dysphagia Liquid Consistency and Strategies for Safe Swallow: Liquid Intake Recommendation: Thin Liquid Intake Strategies: Small Sips Double Swallow Solid Food Consistency: Dietary Recommendations: Regular Additional Modifications to Solid Foods: Continue with reflux/aspiration precautions. Oral Medication Intake: Whole with Puree Compensatory Strategies and Precautions to be Taken for Safe Swallow: Sitting Upright (90 deg) Double Swallow Small Bites and Sips Alternate Liquids/Solids Supervision While Eating and Drinking for Safe Swallow: Intermittent Supervision Foods to Avoid: dry, hard, crunchy foods sticky foods Swallowing Recommended Treatments: Recommendation for Speech: Inpatient Speech Therapy Comment: [employer] will follow-up x1 session during pt's hospitalization. Secure text message was sent to pt's RN re: diet consistency and precaution recommendations. Frequency/Duration: x1 follow-up session to ensure tolerance of the recommended diet consistency Loan Consultant Clinican/Clinical Fellow: No Supervisory Statement: I have reviewed and agree with the student/clinical fellow's documentation: N/A Speech Language Pathologist: Nasrin Mayen M.A., CCC-[employer]
[2020-10-24] MEDS: LORazepam 2 MG/ML VIAL 1 MG IVPUSH (17:26)
[2020-10-24] MEDS: Warfarin Sodium 5 MG TABLET PO (17:28)
--- NOTE | 2020-10-24 19:20 | PC.NURSE ---
PT TOLERATED ATIVAN X 1 FOR MRI.
[2020-10-24] MEDS: Enoxaparin Sodium 100 MG/ML SYRINGE 95 MG SUBCUT (21:38)
[2020-10-25] MEDS: Dextrose 5 % and 0.45 % NaCl 1,000 ML 100 ML IVCONT (00:53)
[2020-10-25 02:56] LABS: Beta-2 Glycoprotein IgA 2.6 U/mL (<20.0); Beta-2 Glycoprotein IgG <2.0 U/mL (<20.0); Beta-2 Glycoprotein IgM 3.6 U/mL (<20.0)
[2020-10-25 04:00] VITALS: BP 127/76; PULSE 76; RESP 18; TEMP 37.4; O2SAT 96
[2020-10-25] MEDS: Ampicillin Sodium/Sulbactam Na 3 GM in 0.9 % Sodium Chloride 100 ML IV ×2 (04:44→09:30)
[2020-10-25] MEDS: Levothyroxine Sodium 100 MCG TABLET 300 MCG PO (05:58)
[2020-10-25 06:53] LABS: Hematocrit 34.8 % (37-47); Hemoglobin 11.8 g/dl (12.0-16.0); Mean Corpuscular HGB Conc 33.9 g/dl (31.0-35.0); Mean Corpuscular Hemoglobin 32.4 pg (27.0-33.0); Mean Corpuscular Volume 95.6 fL (80-98); Mean Platelet Volume 9.4 fL (9.4-12.3); Platelet Count 247 X10*3/uL (160-400); Red Blood Count 3.64 X10*6/uL (4.20-5.50); Red Cell Distribution Width 13.1 % (11.0-16.0); White Blood Count 7.7 X10*3/uL (4.8-10.8)
[2020-10-25 06:59] LABS: INTERNATIONAL NORM RATIO 1.4 (0.9-1.1); Prothrombin Time 15.7 SEC (9.9-13.0)
[2020-10-25 07:14] LABS: Anion Gap 14 (12-20); Blood Urea Nitrogen 9 mg/dL (9-16); Calcium 8.4 mg/dL (8.4-10.2); Carbon Dioxide 27 mmol/L (22-29); Chloride 103 mmol/L (96-108); Creatinine Clr Calc Pharmacy 122.3; Estimated Glomerular Filt Rate > 60; Glucose Random 98 mg/dL (60-115); Potassium 3.8 mmol/L (3.3-5.1); Sodium 140 mmol/L (135-145)
[2020-10-25 07:30] VITALS: BP 158/91; PULSE 71; RESP 18; TEMP 36.6; O2SAT 96
[2020-10-25] MEDS: Enoxaparin Sodium 100 MG/ML SYRINGE 95 MG SUBCUT (09:24)
[2020-10-25 09:27] VITALS: BP 158/91; PULSE 71
[2020-10-25] MEDS: amLODIPine Besylate 5 MG TABLET 10 MG PO (09:27)
[2020-10-25] MEDS: 0.9 % Sodium Chloride Flush 3 ML SYRINGE IVFLUSH (09:31)
[2020-10-25 11:03] VITALS: O2SAT 98
[2020-10-25 11:33] VITALS: BP 167/87; PULSE 75; RESP 16; TEMP 36.9; O2SAT 97
--- NOTE | 2020-10-25 15:00 | P.DS_ITS ---
DS: Providers Provider Date of Service: 10/25/20 Date of admission: 10/22/20 02:06 Primary care physician: Lizette Sherman MD Consults: 10/22/20 02:04 Consult to Hematology / Oncology Routine Consulting Provider: Anali Tamayo Reason for consultation: DVT; high PTT: ?Lupus/Von williebrand 10/23/20 09:47 Consult to Gastroenterology Routine Consulting Provider: [facility] G[facility]ology Services Reason for consultation: distal esophagus thickened on CT + dysphagia DS: Diagnosis Discharge Diagnosis (1) Dysphagia: Status: Acute (2) DVT (deep venous thrombosis): Status: Acute DS: Summary Hospital Course Hospital Course: 55-year-old female with a past medical history of hypothyroidism, renal calculi, Raynaud's phenomena, tobacco dependence presented to the hospital with a chief complaint of right lower extremity pain redness and swelling for the past 1 week.? Denies any fall or trauma.? Denies any recent travel or sick contacts.? Denies any chest pain palpitations lightheadedness or dizziness.? Denies any shortness of breath or dyspnea on exertion. Denies any fever chills cough. Denies any GI or symptoms. Review of all other systems is negative except mentioned above ER course: Per ER team patient noted to have right lower extremity DVT on ultrasound; on labs noted to elevated PTT and normal PT and INR-concern for von Willebrand's versus lupus anticoagulant; discussed with Dr. tamayo from Hematology suggested to start the patient on Lovenox and will be evaluated in the morning.? Admitted for further management. Hospital course: patient was admitted with DVT and work up revealed positive lupus anticoagulation. Hematology advises coumadin, brigding with Lonenox. INR is 1.4 today, will continue Lovenox until INR is 2 to 3. she had a CT of abdomen and pelvis that showed PNA with mild leukocytosis, MRI of the head showed no cavernous sinus thrombosis. Time Spent with Patient Time attestation: Total time spent providing and/or coordinating discharge services: Discharge coordination time: Greater than 30 minutes Quality: Stroke Does the patient have a stroke diagnosis?: No Physical Exam Vital Signs: Vital Signs: Last Vital Signs Temp 98.4 F 10/25/20 11:33 Pulse 75 10/25/20 11:33 Resp 16 10/25/20 11:33 BP 167/87 H 10/25/20 11:33 Pulse Ox 97 10/25/20 11:33 Body Mass Index 32.8 DS: Data Data Completed and Pending Labs on day of discharge: Laboratory Results - last 24 hr 10/22/20 10/25/20 10/25/20 11:15 05:47 05:47 WBC 7.7 RBC 3.64 L Hgb 11.8 L Hct 34.8 L MCV 95.6 MCH 32.4 MCHC 33.9 RDW 13.1 Plt Count 247 MPV 9.4 Absolute Nucleated RBC 0.000 Nucleated RBC % (auto) 0.0 PT 15.7 H INR 1.4 H Sodium Potassium Chloride Carbon Dioxide Anion Gap BUN Creatinine Estim Creat Clear Calc Estimated GFR Random Glucose Calcium Beta-2-GPI IgG Ab <2.0 Beta-2-GPI IgA Ab 2.6 Beta-2-GPI IgM Ab 3.6 10/25/20 05:47 WBC RBC Hgb Hct MCV MCH MCHC RDW Plt Count MPV Absolute Nucleated RBC Nucleated RBC % (auto) PT INR Sodium 140 Potassium 3.8 Chloride 103 Carbon Dioxide 27 Anion Gap 14 BUN 9 Creatinine 0.63 Estim Creat Clear Calc 122.3 Estimated GFR > 60 Random Glucose 98 Calcium 8.4 Beta-2-GPI IgG Ab Beta-2-GPI IgA Ab Beta-2-GPI IgM Ab Discharge Plan Discharge Anticipated Discharge Date/Time: 10/25/20 14:36 Patient Disposition: Home Health Service Discharge Diagnosis: DVT, PNA Referrals: [facility] [Outside] - 1 Week Lizette Sherman MD [Primary Care Provider] - 1 Week Espinoza Alonso MD [Physician] - 5 days Discharge Medications: New warfarin [Jantoven] 5 mg Tablet 5 mg PO DAILY@1800 Qty: 30 RF: 0 enoxaparin 100 mg/mL Syringe 95 mg subcut Q12H Qty: 6 RF: 0 amlodipine 5 mg Tablet 10 mg PO DAILY Qty: 30 RF: 0 amoxicillin-pot clavulanate [Augmentin] 875-125 mg tablet 1 tab PO BID Qty: 10 RF: 0 Continued levothyroxine 300 mcg tablet 300 mcg PO DAILY 30 Days Qty: 30 RF: 2 omeprazole 20 mg capsule,delayed release(DR/EC) 20 mg PO DAILY Qty: 30 RF: 0 nicotine 14 mg/24 hr patch 24 hour 1 patch transdermal DAILY 28 Days Qty: 28 RF: 0 Discharge Orders: Discharge Order (Routine); Ordered 10/25/20 Ordered By: Jordy Quinn Diet: advance to usual diet Activity on Discharge: As tolerated Stand Alone Forms: Patient Portal Discharge page, Work/School Release Care Plan Goals: prevent rehospitallization Health Concerns: lupus anticoagulant, dvt, pneumonia Plan of Treatment: take coumadin as directed lovenox injection until INR is 2 to 3, patient sttes her daughter is medical professional and is able to administer lovenox tomorrow 10/26 take 5 mg of coumadin, you will have INR level check on Tuesday and then next dose of coumadin decided, goal of INR is 2 to 3. Take Augmentin for Pneumonia Take Norvasc (Amlodipine) for high blood pressure Assessment: As above Patient Instructions: Deep Vein Thrombosis (ED), Blood Thinners (ED) Discharge Date/Time: 10/25/20 17:36
--- NOTE | 2020-10-25 15:13 | P.PNIM_ITS ---
Subjective Subjective Date of Service: 10/25/20 Interval History: f/u on dvt, lupus anticoagulant + Review of Systems no sob no chest pain Physical Exam Vital Signs: Vital Signs: Last Vital Signs Temp 98.4 F 10/25/20 11:33 Pulse 75 10/25/20 11:33 Resp 16 10/25/20 11:33 BP 167/87 H 10/25/20 11:33 Pulse Ox 97 10/25/20 11:33 Body Mass Index 32.8 General: AO X 3, no acute distress Resp: CTA bilateral CVS: S1,S2,RRR GI: +BS, NT, no distention Skin: No rash Neuro: motor grossly intact Psych: appropriate affect Objective Data Active Medications Acetaminophen (Acetaminophen Oral Liquid 650 Mg/20.3 Ml Solution) 650 mg PO Q4H PRN PRN Reason: headache Last Admin: 10/23/20 14:34 Dose: 650 mg Documented by: MONSTER Amlodipine Besylate (Amlodipine Besylate 5 Mg Tablet) 10 mg PO DAILY [facility]; Protocol Last Admin: 10/25/20 09:27 Dose: 10 mg Documented by: STACEY Enoxaparin Sodium (Enoxaparin Sodium 100 Mg/Ml Syringe) 95 mg 1 mg/kg (95 mg) SUBCUT Q12H [facility] Last Admin: 10/25/20 09:24 Dose: 95 mg Documented by: STACEY Ampicillin Sodium/Sulbactam (Sodium 3 gm/ Sodium Chloride) 100 mls @ 200 mls/hr IV Q6H [facility] Last Infusion: 10/25/20 11:05 Dose: 0 mls/hr Documented by: GARFIELD Levothyroxine Sodium (Levothyroxine Sodium 100 Mcg Tablet) 300 mcg PO DAILY@0600 [facility] Last Admin: 10/25/20 05:58 Dose: 300 mcg Documented by: MONICA Melatonin (Melatonin 3 Mg Tablet) 6 mg PO BEDTIME PRN PRN Reason: Insomnia Morphine Sulfate (Morphine Sulfate 4 Mg/Ml Cartridge) 3 mg IVPUSH Q4H PRN; Protocol PRN Reason: severe pain Last Admin: 10/23/20 16:32 Dose: 3 mg Documented by: BATOOL Omeprazole (Omeprazole 40 Mg Capsule.) 40 mg PO DAILY@0630 [facility] Last Admin: 10/25/20 06:00 Dose: Not Given Documented by: MONICA Non-Admin Reason: Patient Refused Comments: pt stated she got sick after taking it before breakfast yesterday. Requested to take it after she eats. Ondansetron HCl (Ondansetron Hcl 4 Mg/2 Ml Vial) 4 mg IVPUSH Q4H PRN PRN Reason: nausea/vomiting Last Admin: 10/24/20 09:37 Dose: 4 mg Documented by: RABIA Ondansetron HCl (Ondansetron Hcl 4 Mg/2 Ml Vial) 4 mg IVPUSH ONCE PRN PRN Reason: Nausea and Vomiting Oxycodone HCl (Oxycodone Hcl Immed Release 5 Mg Tablet) 5 mg PO Q6H PRN PRN Reason: Pain, Severe (Pain Scale 7-10) Senna (Sennosides 8.6 Mg Tablet) 17.2 mg PO BEDTIME PRN PRN Reason: Constipation Sodium Chloride (0.9 % Sodium Chloride Flush 3 Ml Syringe) 3 ml IVFLUSH QSHIFT [facility] Last Admin: 10/25/20 09:31 Dose: 3 ml Documented by: STACEY Warfarin Sodium (Warfarin Sodium 5 Mg Tablet) 5 mg PO DAILY@1800 [facility] Last Admin: 10/24/20 17:28 Dose: 5 mg Documented by: RABIA Labs CBC & Chem 7: 10/25/20 05:47 10/25/20 05:47 Labs: Laboratory Results - last 24 hr 10/22/20 10/25/20 10/25/20 11:15 05:47 05:47 MCV 95.6 MCH 32.4 MCHC 33.9 RDW 13.1 Plt Count 247 MPV 9.4 Absolute Nucleated RBC 0.000 Nucleated RBC % (auto) 0.0 PT 15.7 H INR 1.4 H Anion Gap Estim Creat Clear Calc Estimated GFR Random Glucose Calcium Beta-2-GPI IgG Ab <2.0 Beta-2-GPI IgA Ab 2.6 Beta-2-GPI IgM Ab 3.6 10/25/20 05:47 MCV MCH MCHC RDW Plt Count MPV Absolute Nucleated RBC Nucleated RBC % (auto) PT INR Anion Gap 14 Estim Creat Clear Calc 122.3 Estimated GFR > 60 Random Glucose 98 Calcium 8.4 Beta-2-GPI IgG Ab Beta-2-GPI IgA Ab Beta-2-GPI IgM Ab Assessment and Plan (1) Dysphagia: Status: Acute (2) DVT (deep venous thrombosis): Status: Acute Assessment and Plan: 55/f Pat with hypothyroidism, Raynaud's, tobacco dependence admitted for RLE DVT, acute, with elevated PTT -> positive lupus anticoagulant 1. RLE DVT APLAS(anti phospholipid syndrome.) continue enoxaparin, continue coumadin INR 1.4 2. Acute headache - CT head negative, MRV negative for cavernous sinus thrombosis, headache is goine 3. aspiration # dysphagia # esophageal wall thickening -?patient had similar findings on CT scan from 2019.? dysphagia has been going on to solids and liquids over last few months.? GI recommendation: Advance diet. Resume anticoagulation. assistant terminal manager PPI with 40 mg omeprazole QD x 2 months, then 20mg QD termination clerk. She can see in followup and we can set up a screening colonoscopy for her at some point when she is off anticoagulation. Thanks 4. PNA, DC Unasyn, Oral Augmentin 5.HTN, continue Norvasc, no metoprolol 25 bid 6. hypothyroidism - LT4 possibly home later today Quality Stroke Does the patient have a stroke diagnosis?: No VTE Prior VTE?: Yes Approximate Date of Prior VTE: 10/22/20 VTE Risk Level:: Medical - moderate - high VTE Device Contraindication: Treatment Not Indicated VTE Drug Contraindication: N/A - Med Ordered
--- NOTE | 2020-10-25 15:35 | MHC.CM.PN ---
Per MD, Patient will be going home on both Lovenox and Coumadin. states that Patient can manage the Lovenox on her own, but will need [facility] to do an INR blood draw on /Tuesday- 10/27/2020. ALISON has initiated a broad search but thus far, no VNA has accepted (staff shortage, out of area, don't take her insurance).ALISON spoke with [facility] Machine Spreader/Madie at [phone], who indicated that they COULD do the INR on Tuesday as long as they accept Patient's Insurance. Madie has an email out and awaits an answer about accepting Patient insurance (being a holiday w/e, Madie is uncertain when she will hear back on the email). ALISON has kept updated and awsait further responses from [facility]NA referrals made.
--- NOTE | 2020-10-25 15:45 | MHC.CM.PN ---
Per Madie/Blow Mold Technician at [facility] DOES accept Patient's insurance and will admit Patient to their services either tomorrow or 10/27/20. Either way, Madie is aware that the INR has to be drawn on Tuesday10/27/20 and she has indicted that this will be done. has been updated.
[2020-10-25] MEDS: Warfarin Sodium 5 MG TABLET PO (16:59)
--- NOTE | 2020-10-26 10:54 | HO.POSTANES ---
Post Anesthesia Evaluation Post Anesthesia Evaluation Anesthesia: Monitored Mental Status: Awake Pain Control: Satisfactory Nausea/Vomiting: None Hydration: Adequate Anesthesia-Related Issues: No Anes. Related Issues
== END 2020-10-25 17:36 | disposition home health service (06) | DRG 661 ==
LOC: HO.ED 10-22 02:07 → HO.IMC 10-22 03:33 → HO.PGERI 10-24 12:47 → HO.IMC 10-24 13:09
PROVIDERS: Family Medicine; Internal Medicine; Physician Assistant; Admitting Provider Hospitalist; Emergency Provider Internal Medicine; PCP Internal Medicine; Visit Provider Internal Medicine
PROC: 0D738DZ Dilation of Lower Esophagus with Intraluminal Device, Via Natural or Artificial Opening Endoscopic (ICD-10-PCS; principal; 2020-10-24 10:50)
DX: D68.62 Lupus anticoagulant syndrome (principal); J18.9 Pneumonia, unspecified organism; I82.491 Acute embolism and thrombosis of other specified deep vein of right lower extremity; K22.2 Esophageal obstruction; I16.0 Hypertensive urgency; E03.9 Hypothyroidism, unspecified; F17.210 Nicotine dependence, cigarettes, uncomplicated; Z71.6 Tobacco abuse counseling; R51.9 Headache, unspecified; I73.00 Raynaud's syndrome without gangrene; K21.9 Gastro-esophageal reflux disease without esophagitis; K44.9 Diaphragmatic hernia without obstruction or gangrene; K20.90 Esophagitis, unspecified without bleeding; Z87.442 Personal history of urinary calculi; Z79.890 Hormone replacement therapy; Z79.899 Other long term (current) drug therapy
CPT/HCPCS: 36415; 70450; 70546; 71046; 80048; 80076; 83036; 83880; 84145; 85025; 85027; 85246; 85597; 85610; 85611; 85613; 85730; 85732; 86038; 86039; 86146; 86147; 87635; 92610; 93971; 96372; 99285; A9585; C1726; J0295; J0696; J1650; J2060; J2270; J2370; J2405

== ENCOUNTER 2020-11-14 11:33 | Emergency (ER) | payer OTHER, SELFPAY ==
--- NOTE | ~2020-11-14 | US_ITS ---
EXAMINATION: US VENOUS WITH DOPPLER LOWER EXTREMITY, RIGHT CLINICAL INFORMATION: Swelling. History of DVT. COMPARISON: Previous exam September 2020. TECHNIQUE: Ultrasound of the deep veins is performed from the hip to the calf with compression sonography and color and pulse Doppler assessment. Spectral analysis with color-flow imaging is performed. FINDINGS: The right common femoral vein is patent. The visualized greater saphenous vein in the proximal thigh is patent. There is nonocclusive thrombus seen in the profunda femoral vein. The superficial femoral vein in the mid and upper thigh is patent. There is occlusive thrombus seen in the superficial femoral vein in the distal thigh. There is occlusive thrombus seen in the popliteal vein. The posterior tibial vein is patent. The peroneal vein is not well visualized. No Rizo's cyst is seen. There is soft tissue edema. There is right inguinal lymphadenopathy. US/US venous duplex LE RT IMPRESSION: Right leg DVT in the distal superficial femoral and popliteal veins and profunda femoral vein. In comparison with previous exam from September 2020, this appears increased in the popliteal vein. Findings were communicated to Dr. Leyva by the [place] work flow modeling agent Panchito Wilcox on 11/14/2020 1:22 p.m.
--- NOTE | ~2020-11-14 | XR_ITS ---
EXAMINATION: XR CHEST CLINICAL INFORMATION: Cough and SOB. COMPARISON: None TECHNIQUE: Frontal view of the chest was obtained. FINDINGS: The lungs are well-expanded and clear. The heart size and progress clarities normal. No gross bony abnormality seen. XR/XR chest 1V IMPRESSION: Unremarkable chest examination.
[2020-11-14 11:39] VITALS: BP 188/81; PULSE 69; RESP 20; TEMP 36; O2SAT 96; BMI 32.8
[2020-11-14 12:42] VITALS: BP 169/83; PULSE 70
[2020-11-14] MEDS: amLODIPine Besylate 10 MG TABLET PO (12:42)
--- NOTE | 2020-11-14 13:04 | ED.EXTPRO ---
HPI - Extremity Problem General Chief complaint: Extremity Problem Stated complaint: R LEG SWELLING QUEST DVT Time Seen by Provider: 11/14/20 11:37 Source: patient Mode of arrival: ambulatory Limitations: no limitations History of Present Illness HPI Narrative: This is a 55-year-old female past medical history significant for previous DVT on warfarin, antiphospholipid syndrome, and hypertension that presents to the emergency department with right leg swelling, and calf pain that has been worsening over the past 4 days. She also reports numbness to her right toes. She is regularly followed by a visiting nurse, who checks her INR daily, she states her INR is usually 1.4-1.8 however this morning it was 2.9 so her nurse advised her to come in. She was recently diagnosed with a DVT and was inpatient here at [facility] 3 weeks ago , she was discharged home on warfarin & lovenox bridge. She has been taking the warfarin but NOT the lovenox. She states she has not followed up with a specialist since her discharge from the hospital. She states she has seen her PCP, who agrees with the hospital's plan to treat her with warfarin, and blood pressure control. Today she also reports a wet cough and shortness of breath that has been going on for the past few days. She denies fevers, malaise, chills, chest pain. Patient is a smoke she smoke half a pack a day. MD Complaint: extremity pain and extremity swelling Onset (ago): day(s) (Worsening over the past 4 days) Pain Consistency: constant Location: right Severity scale (1-10): 8 Quality: constant Radiation: none Relieving factors: immobilization Exacerbating factors: range of motion, weight bearing, walking and palpation Associated symptoms: shortness of breath and other (Cough, and shortness of breath) Context: history of DVT Related Data Previous Rx's Medication Instructions Recorded nicotine 14 mg/24 hr daily 1 patch TRANSDERMAL DAILY 28 Days 05/13/20 transdermal patch #28 ea warfarin 5 mg tablet (Jantoven) 5 mg PO DAILY@1800 #30 tab 10/25/20 levothyroxine 300 mcg tablet 300 mcg PO DAILY 30 Days #30 tab 11/02/20 enoxaparin 100 mg/mL subcutaneous 95 mg SUBCUT Q12H 10 Days #19 ml 11/03/20 syringe omeprazole 40 mg capsule,delayed 40 mg PO DAILY 90 Days #90 cap 11/03/20 release amlodipine 5 mg tablet 10 mg PO DAILY 30 Days #60 tab 11/11/20 Allergies Allergy/AdvReac Type Severity Reaction Status Date / Time No Known Allergies Allergy Verified 11/03/20 15:32 Review of Systems Review of Systems: Constitutional: No Fever, No Chills ENT/Mouth: No sore throat, No Rhinorrhea, No Swallowing Difficulty Cardiovascular: No Chest Pain, + SOB, No Orthopnea, + Edema (right leg) Respiratory: + Cough, + Sputum, No Wheezing, + dyspnea Gastrointestinal: No Nausea, No Vomiting, No Diarrhea, No abdominal Pain, No Hematochezia, No Melena Genitourinary: No Dysuria, No Urinary Frequency, No Hematuria Musculoskeletal: No joint pain, No Myalgias Skin: No Skin Lesions, No rash Neuro: No Weakness, + Numbness, No Dizziness, No Headache Heme/Lymph: No Bruising, No Lymphadenopathy PMFSH Past Medical History Medical History Hypothyroid Kidney stone Raynaud's disease without gangrene Family History Family History Father Liver cancer Mother Hypertension Social History Social History Household Members: Spouse Housing: House Do you presently have visiting nurse or other home services: No Alcohol intake: never Patient Tobacco Use Status: Current everyday Tobacco user Tobacco use type: Cigarette Cigarette Packs Per Day: 0.5 Cigarettes Per Day: 10.0 e-Cigarette/Vaping Use: Never Used Second Hand Smoke Exposure: No Use of substances other than those prescribed or required for medical reasons: No Advance Directives: No Advance Directives Information Provided: No Patient : No service: No Current occupational status: employed Physical Exam Vital Signs: Vital Signs: Last Vital Signs Temp 96.8 F 11/14/20 11:39 Pulse 70 11/14/20 12:42 Resp 20 11/14/20 11:39 BP 169/83 H 11/14/20 12:42 Pulse Ox 96 11/14/20 11:39 Body Mass Index 32.8 Appearance: Alert. Oriented X3. No acute distress. Eyes: Pupils equal, round and reactive to light. ENT: Pharynx normal. Neck: Normal inspection. Neck supple. CVS: Normal heart rate and rhythm. Pulses normal. + murmur systolic in nature Respiratory: No respiratory distress. + decreased breathsounds to right lower lobe Abdomen: Soft and nontender. +BS x4 Skin: Skin warm and dry. Normal skin color. Normal skin turgor. No rashes. Extremities: + pitting edema to bilateral lower extremities left side 1+ right side 2+. + Homans sign + errythema on right from the knee down to the toes + warm b/l lower extremities Neuro: Oriented X 3. No motor deficit. No sensory deficit Course Course Course Narrative: 55-year-old female past medical history of antiphospholipid syndrome, hypertension and history of DVTs currently on warfarin therapy presents to the emergency department with 4 days of worsening right lower extremity swelling, and calf pain. She states that this morning her visiting nurse checked her INR, which is usually around 1.4-1.8, and this morning is 2.9. She states that based off this finding and her increasing pain to her right calf, she decided to come in today to get seen. She was recently discharged from [facility] on 10/25/2020 , since her discharge she has not followed up with a specialist. She has seen her PCP who thinks that continuing heparin is a good idea. She also complains of shortness of breath, and a wet cough, that has been going on for the past few days. She denies fevers, chest pain, abdominal pain, nausea vomiting. She smokes half a pack per day. Upon physical examination shows a positive Homans sign to the right calf, there is also 2+ pitting edema on the right, with overlying erythema - low suspicion for cellulitis, most likely due to DVT. Left lower extremity has 1+ pitting edema, and negative Homans sign. Pulses are 1+ in strength equal and bilateral. Bilateral lower extremities warm. Based off patient's presentation, and physical exam findings it is likely that this patient has a DVT. Patient does not report a crush injury, comparments are soft and compressable not likely compartment syndrome. Plan- venous duplex of the right lower extremity, COVID now, PT INR, mag, liver panel, CBC, BMP, PTT, chest x-ray. Reevaluation(s) Reevaluation #1: Venous duplex shows right leg DVT in the distal superficial femoral and popliteal veins and profunda femoral vein. Worse than previous exam from September. Will recheck to discuss this case with Dr. Tamayo and obtained recommendations on how to anticoagulate this patient.. Patient tested positive for COVID-19. She has been informed, and educated. Reevaluation #2: 1425- Spoke to Dr. Tamayo on the phone who states that this patient will not need admission. She needs to follow-up with the Coumadin clinic. She should continue to take 5 mg of warfarin, and get her INR checked on Tuesday at the coumadin clinic 1430- spoke to coumadin clinic they have no apts available, and they also state they have reached out to this patient multiple times to schedule an apt and she has never responded. They also state they will not see her because she is COVID+ 1445- Spoke to Mary Clinical [facility] Services Supervisor at [facility] who states patient can continue to get her INR checked daily by the visiting nurse regardless of her COVID status her next INR check is schduled for 11/18/2020 Based off of this plan she will be discharged home, and she should continue to get her INRs checked by her visiting nurse, next due to 11/18. She should continue to take 5 mg of Coumadin p.o. daily. If her INR is less than 2, she should take Lovenox as instructed. She states she does not need a prescription for Lovenox, and she has this at home. She is aware of this plan, she was able to repeat to me these instructions. She will follow-up with the Coumadin Clinic. She has been instructed to return to the emergency department with new or worsening symptoms, or with abnormal INRs. She was also educated that a normal INR is between 2-3. Consultations Consultation #1: Dr. Tamayo - Heme/onc MDM - Extremity (Nontraumatic) Lab Data Result diagrams: 11/14/20 12:53 11/14/20 12:53 Labs: Lab Results 11/14/20 11/14/20 11/14/20 Range/Units 12:53 12:53 12:53 WBC 3.3 L (4.8-10.8) X10*3/uL RBC 3.34 L (4.20-5.50) X10*6/uL Hgb 11.2 L (12.0-16.0) g/dl Hct 32.2 L (37-47) % MCV 96.4 (80-98) fL MCH 33.5 H (27.0-33.0) pg MCHC 34.8 (31.0-35.0) g/dl RDW 13.6 (11.0-16.0) % Plt Count 160 D (160-400) X10*3/uL MPV 9.4 (9.4-12.3) fL Immature Gran % (Auto) 0.6 H (0.0-0.4) % Neut % (Auto) 45.5 (45-73) % Lymph % (Auto) 42.2 H (20-40) % [place] % (Auto) 8.6 (2-11) % Eos % (Auto) 2.8 (0-4) % Baso % (Auto) 0.3 (0-2) % Lymph # (Auto) 1.4 (1.2-4.9) X10*3/uL [place] # (Auto) 0.3 (0.1-1.2) X10*3/uL Eos # (Auto) 0.1 (0.0-0.4) X10*3/uL Baso # (Auto) 0.0 (0.0-0.2) X10*3/uL Abs Immat Gran (auto) 0.02 (0.00-0.03) X10*3/uL Absolute Neuts (auto) 1.5 L (2.0-8.3) X10*3/uL Absolute Nucleated RBC 0.000 (0.0-0.012) X10*3/uL Nucleated RBC % (auto) 0.0 (0.0-0.2) /100WBC Smear Tech's Comments VERIFIED PT 37.0 H D (9.9-13.0) SEC INR 3.2 H (0.9-1.1) APTT 77.8 H* D (24.1-38.0) SEC Sodium 141 (135-145) mmol/L Potassium 3.7 (3.3-5.1) mmol/L Chloride 107 (96-108) mmol/L Carbon Dioxide 26 (22-29) mmol/L Anion Gap 12 (12-20) BUN 14 D (9-16) mg/dL Creatinine 0.65 (0.5-1.4) mg/dL Estim Creat Clear Calc 118.6 Estimated GFR > 60 Random Glucose 124 H (60-115) mg/dL Calcium 8.6 (8.4-10.2) mg/dL Magnesium 1.8 (1.6-2.6) mg/dL Total Bilirubin 0.2 (0.0-1.0) mg/dL Direct Bilirubin < 0.2 (0.0-0.5) mg/dL AST 28 (5-31) U/L ALT 25 (0-31) U/L Alkaline Phosphatase 78 (39-117) U/L Total Protein 7.0 (6.5-8.0) g/dL Albumin 3.6 (3.5-5.0) g/dL COVID-19 ([facility]) (Negative) COVID-19 Clin Com 11/14/20 Range/Units 13:33 WBC (4.8-10.8) X10*3/uL RBC (4.20-5.50) X10*6/uL Hgb (12.0-16.0) g/dl Hct (37-47) % MCV (80-98) fL MCH (27.0-33.0) pg MCHC (31.0-35.0) g/dl RDW (11.0-16.0) % Plt Count (160-400) X10*3/uL MPV (9.4-12.3) fL Immature Gran % (Auto) (0.0-0.4) % Neut % (Auto) (45-73) % Lymph % (Auto) (20-40) % [place] % (Auto) (2-11) % Eos % (Auto) (0-4) % Baso % (Auto) (0-2) % Lymph # (Auto) (1.2-4.9) X10*3/uL [place] # (Auto) (0.1-1.2) X10*3/uL Eos # (Auto) (0.0-0.4) X10*3/uL Baso # (Auto) (0.0-0.2) X10*3/uL Abs Immat Gran (auto) (0.00-0.03) X10*3/uL Absolute Neuts (auto) (2.0-8.3) X10*3/uL Absolute Nucleated RBC (0.0-0.012) X10*3/uL Nucleated RBC % (auto) (0.0-0.2) /100WBC Smear Tech's Comments PT (9.9-13.0) SEC INR (0.9-1.1) APTT (24.1-38.0) SEC Sodium (135-145) mmol/L Potassium (3.3-5.1) mmol/L Chloride (96-108) mmol/L Carbon Dioxide (22-29) mmol/L Anion Gap (12-20) BUN (9-16) mg/dL Creatinine (0.5-1.4) mg/dL Estim Creat Clear Calc Estimated GFR Random Glucose (60-115) mg/dL Calcium (8.4-10.2) mg/dL Magnesium (1.6-2.6) mg/dL Total Bilirubin (0.0-1.0) mg/dL Direct Bilirubin (0.0-0.5) mg/dL AST (5-31) U/L ALT (0-31) U/L Alkaline Phosphatase (39-117) U/L Total Protein (6.5-8.0) g/dL Albumin (3.5-5.0) g/dL COVID-19 ([facility]) Positive A (Negative) COVID-19 Clin Com See Note Critical Care Time Critical Care Time Critical Care Time: No Discharge Plan Discharge Clinical Impression: COVID-19 DVT (deep venous thrombosis) Qualifiers: DVT location: lower extremity Affected thrombotic vein of extremity: popliteal Chronicity: unspecified Laterality: right Qualified Code(s): I82.431 - Acute embolism and thrombosis of right popliteal vein Patient Disposition: Home, Self-Care Instructions: Deep Vein Thrombosis (ED), Deep Vein Thrombosis Prevention (ED), COVID-19 (Coronavirus Disease 2019) (ED) Additional Instructions: Continue taking 5 mg of warfarin daily. Continue getting your INR is checked by her visiting nurse. I spoke to Melchor WEBB which states regardless of your COVID status you will still get seen by a visiting nurse at home and they will check your INR. Your next INR check in on 11/19/2019 Your goal INR (what is normal) is between 2-3 Since today you told me you still have a script for Lovenox and you have Lovenox at home a prescription for this medication was not sent to your pharmacy. This medication should be used if your INR is less than 2. You should try to make an appointment with the Coumadin Clinic, they have tried to call you multiple times, but have been unable to get a hold of you. They will only see you after your quarantine from [facility]. Follow-up with your primary care provider & Dr. Tamayo Please return to the emergency department with new or worsening symptoms You were found to be COVID-19 POSITIVE today. Your chest x-ray and oxygen levels were normal. Rest. Drink plenty of fluids. Do not go out in public for the next 10 days. Take over the counter cold/flu medications as needed for your symptoms. Take Tylenol and/or Motrin as needed for fevers and body aches. Follow up with your doctor this week. If you shortness of breath worsens , if you develop difficulty breathing or any other concerning symptom come back to the ER for further evaluation. Prescriptions: No Action levothyroxine 300 mcg tablet 300 mcg PO DAILY 30 Days Qty: 30 RF: 2 amlodipine 5 mg tablet 10 mg PO DAILY 30 Days Qty: 60 RF: 1 warfarin [Jantoven] 5 mg Tablet 5 mg PO DAILY@1800 Qty: 30 RF: 0 nicotine 14 mg/24 hr patch 24 hour 1 patch transdermal DAILY 28 Days Qty: 28 RF: 0 omeprazole 40 mg capsule,delayed release(DR/EC) 40 mg PO DAILY 90 Days Qty: 90 RF: 0 enoxaparin 100 mg/mL syringe 95 mg subcut Q12H 10 Days Qty: 19 RF: 0 Referrals: John Canales FNP- [Primary Care Provider] - 2 days Anali Tamayo MD [Physician] - 1 week
[2020-11-14 13:06] LABS: Basophils Percent Auto 0.3 % (0-2); Eosinophils Absolute Auto 0.1 X10*3/uL (0.0-0.4); Eosinophils Percent Auto 2.8 % (0-4); Hematocrit 32.2 % (37-47); Hemoglobin 11.2 g/dl (12.0-16.0); Imm Gran Abs Auto 0.02 X10*3/uL (0.00-0.03); Imm Gran Pct Auto 0.6 % (0.0-0.4); Lymphocytes Absolute Auto 1.4 X10*3/uL (1.2-4.9); Lymphocytes Percent Auto 42.2 % (20-40); MANUAL DIFF FLAG SCAN; Mean Corpuscular HGB Conc 34.8 g/dl (31.0-35.0); Mean Corpuscular Hemoglobin 33.5 pg (27.0-33.0); Mean Corpuscular Volume 96.4 fL (80-98); Mean Platelet Volume 9.4 fL (9.4-12.3); Monocytes Absolute Auto 0.3 X10*3/uL (0.1-1.2); Monocytes Percent Auto 8.6 % (2-11); Neutrophils Absolute Auto 1.5 X10*3/uL (2.0-8.3); Neutrophils Percent Auto 45.5 % (45-73); Platelet Count 160 X10*3/uL (160-400); Red Blood Count 3.34 X10*6/uL (4.20-5.50); Red Cell Distribution Width 13.6 % (11.0-16.0); SCAN SMEAR FLAG 1; White Blood Count 3.3 X10*3/uL (4.8-10.8)
[2020-11-14 13:14] LABS: INTERNATIONAL NORM RATIO 3.2 (0.9-1.1)
[2020-11-14 13:19] LABS: Alanine Aminotransferase 25 U/L (0-31); Albumin Level 3.6 g/dL (3.5-5.0); Alkaline Phosphatase 78 U/L (39-117); Anion Gap 12 (12-20); Aspartate Amino Transferase 28 U/L (5-31); Bilirubin Direct < 0.2 mg/dL (0.0-0.5); Bilirubin Total 0.2 mg/dL (0.0-1.0); Blood Urea Nitrogen 14 mg/dL (9-16); Calcium 8.6 mg/dL (8.4-10.2); Carbon Dioxide 26 mmol/L (22-29); Chloride 107 mmol/L (96-108); Creatinine Clr Calc Pharmacy 118.6; Estimated Glomerular Filt Rate > 60; Glucose Random 124 mg/dL (60-115); Magnesium 1.8 mg/dL (1.6-2.6); Potassium 3.7 mmol/L (3.3-5.1); Sodium 141 mmol/L (135-145)
[2020-11-14 13:20] LABS: Partial Thromboplastin Time 77.8 SEC (24.1-38.0)
[2020-11-14 13:34] LABS: SLIDE REVIEW VERIFIED
[2020-11-14 13:48] LABS: COVID-19 Test Positive (Negative); IDNOW Serial# 9DD0AD1C
--- NOTE | 2020-11-14 14:39 | PC.NURSE ---
awaiting cm involvement for pt. if vna cannot continue inr draws and therapy at home. will need additional plans.
== END 2020-11-14 15:09 | disposition home or self-care (01) ==
PROVIDERS: Physician Assistant; Emergency Provider Emergency Medicine; PCP Nurse Practitioner Family
DX: U07.1 COVID-19 (principal); I82.431 Acute embolism and thrombosis of right popliteal vein; R60.0 Localized edema; Z86.718 Personal history of other venous thrombosis and embolism; Z79.01 Long term (current) use of anticoagulants; Z79.899 Other long term (current) drug therapy; F17.210 Nicotine dependence, cigarettes, uncomplicated; Z71.6 Tobacco abuse counseling
CPT/HCPCS: 36415; 71045; 80048; 80076; 83735; 85025; 85610; 85730; 87635; 93971; 99284

== ENCOUNTER 2021-04-09 16:37 | Inpatient (IN) | payer OTHER, SELFPAY ==
--- NOTE | ~2021-04-09 | CT_ITS ---
EXAMINATION: CT ANGIOGRAM OF THE CHEST WITH AND WITHOUT CONTRAST (CT PULMONARY ANGIOGRAM FOR PE) CT ABDOMEN PELVIS WITH CONTRAST CLINICAL INFORMATION: Extensive DVT. Evaluate for PE. COMPARISON: CT abdomen pelvis dated 05/22/2020 TECHNIQUE: Prior to contrast administration, noncontrast localization images were obtained. Subsequently, multidetector volumetric imaging was performed from the thoracic inlet to the pubic symphysis through the chest, abdomen, and pelvis following the administration of 71 mL Omnipaque 350 intravenous contrast. No contrast reaction reported Sagittal, coronal, and MIP oblique sagittal (through the chest only) reformatted images were obtained on the CT workstation, uploaded to PACS, and reviewed. Total exam dose-length product: 1124 mGy-cm This CT examination was performed using dose optimization techniques as appropriate, variously including the following: *Automated exposure control *Adjustment of mA and/or kV according to patient size (this includes techniques or standardized protocols for targeted exams where dose is matched to indication/reason for exam; i.e. extremities or head) *Use of iterative reconstruction technique FINDINGS: QUALITY OF STUDY/CONTRAST BOLUS: Suboptimal due to late bolus timing. Sensitivity for pulmonary emboli does not extend beyond the mid segmental level. PULMONARY ARTERIES: No central or segmental pulmonary emboli. THORACIC AORTA: No aneurysm or dissection. LUNG: No focal consolidation, nodules or masses. There is a small granulomatous calcification in the lateral aspect of the right upper lobe. PLEURA: No pleural effusion or pneumothorax. MEDIASTINUM: Normal heart size. No pericardial effusion. No hilar or mediastinal lymphadenopathy. No evidence of septal bowing or right heart strain. There is diffuse mural thickening of the esophagus, most pronounced in the lower two thirds, similar to prior. CHEST WALL/AXILLA: No axillary or internal mammary lymphadenopathy. ABDOMEN/PELVIS: LIVER, GALLBLADDER AND BILIARY TREE: Relative hypoattenuation of the hepatic parenchyma is consistent with steatosis. Liver is borderline enlarged, measuring 20 cm cranial caudal. No focal hepatic lesions are identified. Hepatic contour is normal. No biliary ductal dilatation. Gallbladder is surgically absent. PANCREAS: Normal; no mass or surrounding fluid. SPLEEN: There is a small 6 mm focus of hypoattenuation in the lateral aspect of the spleen which is unchanged from priors and may correspond to a cyst. No acute findings. ADRENAL GLANDS: Normal; no mass. KIDNEYS AND URETERS: The kidneys are normal in size, shape, and attenuation. No hydronephrosis, hydroureter, or calculi. GASTROINTESTINAL TRACT: As noted above, there is diffuse mural thickening of the esophagus concerning for esophagitis. Stomach, small bowel, and colon are normal in caliber. Moderate to large volume of well-formed stool throughout the colon. No bowel wall thickening or surrounding inflammatory changes are identified. Appendix is not well seen, there are no findings of acute appendicitis are identified. No intraperitoneal free fluid or free air. ABDOMINAL WALL: No significant hernia is appreciated. LYMPHOVASCULAR STRUCTURES: Calcific atherosclerosis is present in the abdominal aorta and iliac arteries. BLADDER: No focal mass or wall thickening seen. No bladder calculi. PELVIC VISCERA: Normal CT appearance of the uterus. No adnexal mass seen. OSSEOUS STRUCTURES: Mild osteoarthritis in the hips. No fracture or malalignment. CT/CT angio chest PE protocol IMPRESSION: 1. No evidence of pulmonary emboli. No acute pulmonary findings. 2. Diffuse mural thickening the esophagus is similar to prior and most consistent with esophagitis. Consider further assessment with barium swallow or GI consultation on a nonemergent basis. 3. No acute malalignment in the abdomen and pelvis. 4. Hepatic steatosis and borderline hepatomegaly. VTE: negative
--- NOTE | ~2021-04-09 | US_ITS ---
EXAMINATION: US VENOUS ULTRASOUND WITH DOPPLER LOWER EXTREMITY, LEFT CLINICAL INFORMATION: Pain and swelling. History of DVT. COMPARISON: None TECHNIQUE: Ultrasound of the deep veins is performed from the hip to the calf with compression sonography and color and pulse Doppler assessment. Spectral analysis with color-flow imaging is performed. FINDINGS: There is occlusive thrombus within the left proximal femoral vein through the left popliteal vein. Additional nonocclusive thrombus is seen within the posterior tibial veins. The peroneal veins are not well seen. Nonocclusive thrombus is also noted within the profunda femoral vein. The left common femoral vein and greater saphenous vein appears patent. No appreciable popliteal fossa cyst. The right common femoral vein is patent with normal phasic flow on spectral Doppler. US/US venous duplex LE LT IMPRESSION: Deep vein thrombus within the left lower extremity from the proximal femoral vein through the calf veins. Additional thrombus present in the profunda femoral vein. This critical result was discussed by telephone with Dr. Leyva on 04/09/2021 at 6:03 PM.
[2021-04-09 17:02] VITALS: BP 162/96; PULSE 86; RESP 17; TEMP 36.8; O2SAT 95; BMI 32.8
[2021-04-09 17:22] LABS: MANUAL DIFF FLAG NO
[2021-04-09 17:27] LABS: Basophils Percent Auto 0.3 % (0-2); Eosinophils Absolute Auto 0.1 X10*3/uL (0.0-0.4); Hematocrit 38.5 % (37.0-47.0); Hemoglobin 13.7 g/dl (12.0-16.0); Imm Gran Abs Auto 0.12 X10*3/uL (0.00-0.03); Lymphocytes Absolute Auto 1.9 X10*3/uL (1.2-4.9); Lymphocytes Percent Auto 16.1 % (20-40); Mean Corpuscular HGB Conc 35.6 g/dl (31.0-35.0); Mean Corpuscular Hemoglobin 33.3 pg (27.0-33.0); Mean Corpuscular Volume 93.4 fL (80.0-98.0); Monocytes Absolute Auto 0.9 X10*3/uL (0.1-1.2); Monocytes Percent Auto 8.1 % (2-11); Neutrophils Absolute Auto 8.4 x10*3/uL (2.0-8.3); Neutrophils Percent Auto 73.5 % (45-73); Platelet Count 213 X10*3/uL (160-400); Red Blood Count 4.12 X10*6/uL (4.20-5.50); Red Cell Distribution Width 13.2 % (11.0-16.0); White Blood Count 11.5 X10*3/uL (4.8-10.8)
[2021-04-09 17:47] LABS: Alanine Aminotransferase 37 U/L (0-31); Albumin Level 4.2 g/dL (3.5-5.0); Alkaline Phosphatase 102 U/L (39-117); Anion Gap 13 (12-20); Aspartate Amino Transferase 34 U/L (5-31); Bilirubin Direct 0.2 mg/dL (0.0-0.5); Bilirubin Total 0.5 mg/dL (0.0-1.0); Blood Urea Nitrogen 16 mg/dL (9-16); Calcium 9.8 mg/dL (8.4-10.2); Carbon Dioxide 29 mmol/L (22-29); Chloride 101 mmol/L (96-108); Creatinine Clr Calc Pharmacy 102.9; Estimated Glomerular Filt Rate > 60; Glucose Random 120 mg/dL (60-115); Lipase 34 U/L (8-78); Sodium 139 mmol/L (135-145); Total Protein 8.3 g/dL (6.5-8.0)
--- NOTE | 2021-04-09 17:48 | ECG_ITS ---
Test Reason : cp Blood Pressure : / mmHG Vent. Rate : 070 BPM Atrial Rate : 070 BPM P-R Int : 186 ms QRS Dur : 094 ms QT Int : 418 ms P-R-T Axes : -01 022 065 degrees QTc Int : 451 ms Normal sinus rhythm Normal ECG When compared with ECG of 12-MAR-2011 19:45, Nonspecific T wave abnormality no longer evident in Inferior leads Nonspecific T wave abnormality, improved in Anterolateral leads QT has lengthened Referred By: Oliva Luciano Electronically Signed By:PEDRO CHATTERJEE MD
--- NOTE | 2021-04-09 18:44 | ED_ITS ---
HPI - General Adult General Chief complaint: General Medical Stated complaint: ?bloodclot Time Seen by Provider: 04/09/21 17:14 Source: patient and family Mode of arrival: ambulatory Limitations: no limitations History of Present Illness HPI narrative: 56-year-old female with a past medical history of DVT in the right lower extremity, antiphospholipid syndrome here with reports of left leg swelling and pain since Tuesday. Patient denies any injury or trauma. Patient has had some associated nausea and vomiting but denies any shortness of breath, chest pain, fevers, chills or cough. The patient tells me that she had a right lower extremity DVT last October that was treated with Lovenox. She use Lovenox for 30 days but tells me she did not continue it because she did not have a refill for the medication. She has not followed up with her primary care doctor or was been seen by Hematology Related Data Home Medications Medication Instructions Recorded Confirmed amlodipine 5 mg tablet 5 mg PO DAILY 04/09/21 04/09/21 Previous Rx's Medication Instructions Recorded levothyroxine 300 mcg tablet 300 mcg PO DAILY 30 Days #30 tab 11/02/20 omeprazole 40 mg capsule,delayed 40 mg PO DAILY 90 Days #90 cap 01/31/21 release Allergies Allergy/AdvReac Type Severity Reaction Status Date / Time No Known Allergies Allergy Verified 04/09/21 17:02 Review of Systems Review of Systems: Yes all other systems are reviewed and are negative Constitutional: Constitutional: Reports no additional constitutional complaints, Denies body ache(s), Denies chills, Denies fever(s), Denies headache(s) and Denies weakness Eyes: Eyes: Reports no additional eye complaints and Denies change in vision ENT: Reports system reviewed and no additional complaints, except as documented, Denies dizziness, Denies headache(s), Denies nasal congestion, Denies nasal discharge and Denies neck pain Cardiovascular: Cardiovascular: Reports no additional cardiovascular complaints, Denies chest pain, Reports leg edema and Denies dyspnea Respiratory: Respiratory: Reports no additional respiratory complaints, Denies cough and Denies dyspnea Gastrointestinal: Gastrointestinal: Reports no additional gastrointestinal com plaints, Denies abdominal pain, Denies diarrhea, Denies nausea and Denies vomiting Genitourinary: Genitourinary: Reports no additional female genitourinary complaints and Denies urinary incontinence Musculoskeletal: Musculoskeletal: Reports no additional musculoskeletal complaints, Denies back pain, Denies arthralgias, Denies joint swelling, Denies neck pain, Denies numbness and Denies tingling Integumentary/Breasts: Skin/Breast: Reports system reviewed and no additional complaints, except as docu and Denies rash Neurologic: Reports system reviewed and no additional complaints, except as documented, Denies dizziness, Denies headache(s), Denies numbness, Denies tingling and Denies weakness [facility] Past Medical History Attestation statement: The following information was validated with the patient. Source: old records reviewed and nursing notes reviewed Medical History DVT (deep venous thrombosis) Hypothyroid Kidney stone Raynaud's disease without gangrene Family History Family History Father Liver cancer Mother Hypertension Social History Social History Household Members: Spouse Housing: House Do you presently have visiting nurse or other home services: No Alcohol intake: never Patient Tobacco Use Status: Current everyday Tobacco user Tobacco use type: Cigarette Cigarette Packs Per Day: 0.5 Cigarettes Per Day: 10.0 e-Cigarette/Vaping Use: Never Used Second Hand Smoke Exposure: No Advance Directives: No Advance Directives Information Provided: No Patient : No service: No Current occupational status: employed Physical Exam ED Vital Signs: Vital Signs - 24 hr 04/09/21 17:02 04/09/21 19:30 04/09/21 20:47 Temperature 98.2 F 98.6 F 98.6 F Pulse Rate 86 70 71 Respiratory Rate 17 16 20 Blood Pressure 162/96 H 147/95 H 162/85 H Pulse Oximetry 95 94 97 BMI result Body Mass Index 32.8 Const General: cooperative, healthy appearing, comfortable and no acute distress Orientation/consciousness: patient oriented x3 Limitations: no limitations HENMT Head: Yes normal to inspection Ears: hearing grossly normal bilaterally and TM's normal bilaterally General nose exam: Normal external nose present Face and sinus: Yes normal facial exam Mouth: Normal oral and palatal mucosa present Teeth and gingiva: dentition normal Throat: Yes posterior oropharynx normal, Yes tonsils normal and Yes uvula midline Neck Neck: Yes normal visual inspection, Yes full ROM, Yes no lymphadenopathy and Yes no meningeal signs Chest Chest palpation & inspection: normal inspection of the chest Resp Effort & Inspection: normal respiratory effort Auscultation: clear to auscultation bilaterally Cardio Rate: regular rate Peripheral pulses: Peripheral pulses 2+ throughout GI Inspection: Yes normal to inspection Palpation (GI): Soft to palpation and nontender General: Yes no CVA tenderness Back/Spine/Pelvis Back: no CVA tenderness Skin General skin exam: no rashes or lesions noted Neuro General: patient oriented x3, moves all extremities and no meningeal signs Cranial nerves: Yes CN's II-XII intact bilaterally, Yes Bilaterally intact EOM present, Yes Nystagmus not present, Yes Normal facial strength present and Yes Midline tongue present Cognition (Neuro): normal cognition Gait exam (Neuro): Normal gait present Motor exam (neuro): 5/5 motor strength present throughout Sensory Exam: Normal double simultaneous stimulation for sensation Extrem Other: To the left leg there is swelling. There is tenderness diffusely. There is no warmth or redness. There is palpable DP and PT pulses. Course Course Course Narrative: 56yo female here with LLE swelling/pain since Tuesday with nausea/vomiting. History of antiphospholipid syndrome with a previous right lower extremity DVT that was treated with Lovenox but it sounds that the patient did not follow-up with her primary care doctor for any refill of her medications she has discontinued this. No shortness of breath or chest pain.. Will check ultrasound of the leg. 1849-ultrasound shows Deep vein thrombus within the left lower extremity from the proximal femoral vein through the calf veins. Additional thrombus present in the profunda femoral vein. ? -patient will need labs, EKG, CTA of chest to rule out PE. Patient has no focal abdominal pain exam. She does report some vomiting and abdominal pain over the last few days so will check CT of abdomen and pelvis additionally. 2119-CT of chest negative for PE. CT abdomen and pelvis shows soft diet is but no other acute finding. I spoke to the medicine team for admission. The patient has a prolonged PTT with history of same. She has been seen by Hematology during her last admission in October. At that time her lupus anticoagulant test was positive. D/t extensive DVT w/ prolonged PTT medicine is asking for both vascular and hematology input. 2129-spoke to Dr. Judge from vascular. He would not do thrombolysis on affected limb. Patient should be admitted for anticoagulation (deferred to hematology). Patient will need IVC filter. Call out to hematology to discuss 2199-unfortunately I have not received a phone call from Hematology. Therefore based on previous recommendations will start Lovenox 1 mg/kg SQ Medical Decision Making Medical Records Medical records reviewed: Yes I reviewed the patient's medical records. Lab Data Lab results reviewed: Yes I reviewed the patient's lab results. Result diagrams: 04/09/21 17:16 04/09/21 17:16 Labs: Lab Results 04/09/21 04/09/21 04/09/21 Range/Units 17:16 17:16 19:00 WBC 11.5 H (4.8-10.8) X10*3/uL RBC 4.12 L (4.20-5.50) X10*6/uL Hgb 13.7 (12.0-16.0) g/dl Hct 38.5 (37.0-47.0) % MCV 93.4 (80.0-98.0) fL MCH 33.3 H (27.0-33.0) pg MCHC 35.6 H (31.0-35.0) g/dl RDW 13.2 (11.0-16.0) % Plt Count 213 (160-400) X10*3/uL MPV 9.0 L (9.4-12.3) fL Immature Gran % (Auto) 1.0 H (0.0-0.4) % Neut % (Auto) 73.5 H (45-73) % Lymph % (Auto) 16.1 L (20-40) % [place] % (Auto) 8.1 (2-11) % Eos % (Auto) 1.0 (0-4) % Baso % (Auto) 0.3 (0-2) % Lymph # (Auto) 1.9 (1.2-4.9) X10*3/uL [place] # (Auto) 0.9 (0.1-1.2) X10*3/uL Eos # (Auto) 0.1 (0.0-0.4) X10*3/uL Baso # (Auto) 0.0 (0.0-0.2) X10*3/uL Abs Immat Gran (auto) 0.12 H (0.00-0.03) X10*3/uL Absolute Neuts (auto) 8.4 H (2.0-8.3) x10*3/uL Absolute Nucleated RBC 0.000 (0.0-0.012) X10*3/uL Nucleated RBC % (auto) 0.0 (0.0-0.2) /100WBC PT (9.9-13.0) SEC INR (0.9-1.1) APTT (24.1-38.0) SEC Sodium 139 (135-145) mmol/L Potassium 4.0 (3.3-5.1) mmol/L Chloride 101 (96-108) mmol/L Carbon Dioxide 29 (22-29) mmol/L Anion Gap 13 (12-20) BUN 16 (9-16) mg/dL Creatinine 0.74 (0.5-1.4) mg/dL Estim Creat Clear Calc 102.9 Estimated GFR > 60 Random Glucose 120 H (60-115) mg/dL Calcium 9.8 D (8.4-10.2) mg/dL Total Bilirubin 0.5 (0.0-1.0) mg/dL Direct Bilirubin 0.2 (0.0-0.5) mg/dL AST 34 H (5-31) U/L ALT 37 H (0-31) U/L Alkaline Phosphatase 102 D (39-117) U/L Troponin I High Sens (<3.5-17.0) ng/L Total Protein 8.3 H (6.5-8.0) g/dL Albumin 4.2 (3.5-5.0) g/dL Lipase 34 (8-78) U/L Urine Color Urine Appearance Urine pH (5.0-8.0) Ur Specific [place] (1.005-1.025) Urine Protein (NEG-TRACE) MG/DL Urine Glucose (UA) (NEG) MG/DL Urine Ketones (NEG) MG/DL Urine Blood (NEG) Urine Nitrite (NEG) Ur Leukocyte Esterase (NEG) Urine RBC (0) /HPF Urine WBC (0-4) /HPF Ur Squamous Epith Cells /LPF Urine Bacteria /LPF COVID-19 ([facility]) Negative (Negative) COVID-19 Clin Com See Note 04/09/21 04/09/21 04/09/21 Range/Units 19:18 19:18 21:20 WBC (4.8-10.8) X10*3/uL RBC (4.20-5.50) X10*6/uL Hgb (12.0-16.0) g/dl Hct (37.0-47.0) % MCV (80.0-98.0) fL MCH (27.0-33.0) pg MCHC (31.0-35.0) g/dl RDW (11.0-16.0) % Plt Count (160-400) X10*3/uL MPV (9.4-12.3) fL Immature Gran % (Auto) (0.0-0.4) % Neut % (Auto) (45-73) % Lymph % (Auto) (20-40) % [place] % (Auto) (2-11) % Eos % (Auto) (0-4) % Baso % (Auto) (0-2) % Lymph # (Auto) (1.2-4.9) X10*3/uL [place] # (Auto) (0.1-1.2) X10*3/uL Eos # (Auto) (0.0-0.4) X10*3/uL Baso # (Auto) (0.0-0.2) X10*3/uL Abs Immat Gran (auto) (0.00-0.03) X10*3/uL Absolute Neuts (auto) (2.0-8.3) x10*3/uL Absolute Nucleated RBC (0.0-0.012) X10*3/uL Nucleated RBC % (auto) (0.0-0.2) /100WBC PT 18.3 H (9.9-13.0) SEC INR 1.6 H (0.9-1.1) APTT 97.8 H* (24.1-38.0) SEC Sodium (135-145) mmol/L Potassium (3.3-5.1) mmol/L Chloride (96-108) mmol/L Carbon Dioxide (22-29) mmol/L Anion Gap (12-20) BUN (9-16) mg/dL Creatinine (0.5-1.4) mg/dL Estim Creat Clear Calc Estimated GFR Random Glucose (60-115) mg/dL Calcium (8.4-10.2) mg/dL Total Bilirubin (0.0-1.0) mg/dL Direct Bilirubin (0.0-0.5) mg/dL AST (5-31) U/L ALT (0-31) U/L Alkaline Phosphatase (39-117) U/L Troponin I High Sens 7.6 (<3.5-17.0) ng/L Total Protein (6.5-8.0) g/dL Albumin (3.5-5.0) g/dL Lipase (8-78) U/L Urine Color YELLOW Urine Appearance CLEAR Urine pH 6.0 (5.0-8.0) Ur Specific [place] 1.010 (1.005-1.025) Urine Protein TRACE (NEG-TRACE) MG/DL Urine Glucose (UA) NEG (NEG) MG/DL Urine Ketones NEG (NEG) MG/DL Urine Blood TRACE (NEG) Urine Nitrite NEG (NEG) Ur Leukocyte Esterase NEG (NEG) Urine RBC 5-9 H (0) /HPF Urine WBC 0-2 (0-4) /HPF Ur Squamous Epith Cells 2+ /LPF Urine Bacteria TRACE /LPF COVID-19 ([facility]) (Negative) COVID-19 Clin Com Imaging Data Venous US: Attestation: I personally reviewed and interpreted this imaging study as follows: Radiologist's impression: Deep vein thrombus within the left lower extremity from the proximal femoral vein through the calf veins. Additional thrombus present in the profunda femoral vein. ? CT chest/abdomen/pelvis: Attestation: I personally reviewed and interpreted this imaging study as follows: Radiologist's impression: FINDINGS: QUALITY OF STUDY/CONTRAST BOLUS: Suboptimal due to late bolus timing. Sensitivity for pulmonary emboli does not extend beyond the mid segmental level. PULMONARY ARTERIES: No central or segmental pulmonary emboli.? THORACIC AORTA: No aneurysm or dissection. LUNG: No focal consolidation, nodules or masses. There is a small granulomatous calcification in the lateral aspect of the right upper lobe. PLEURA: No pleural effusion or pneumothorax. MEDIASTINUM: Normal heart size. No pericardial effusion. No hilar or mediastinal lymphadenopathy.? No evidence of septal bowing or right heart strain. There is diffuse mural thickening of the esophagus, most pronounced in the lower two thirds, similar to prior. CHEST WALL/AXILLA: No axillary or internal mammary lymphadenopathy. ABDOMEN/PELVIS: LIVER, GALLBLADDER AND BILIARY TREE: Relative hypoattenuation of the hepatic parenchyma is consistent with steatosis. Liver is borderline enlarged, measuring 20 cm cranial caudal. No focal hepatic lesions are identified. Hepatic contour is normal. No biliary ductal dilatation. Gallbladder is surgically absent.? PANCREAS: Normal; no mass or surrounding fluid.? SPLEEN: There is a small 6 mm focus of hypoattenuation in the lateral aspect of the spleen which is unchanged from priors and may correspond to a cyst. No acute findings.? ADRENAL GLANDS: Normal; no mass.? KIDNEYS AND URETERS: The kidneys are normal in size, shape, and attenuation. No hydronephrosis, hydroureter, or calculi. ? GASTROINTESTINAL TRACT: As noted above, there is diffuse mural thickening of the esophagus concerning for esophagitis. Stomach, small bowel, and colon are normal in caliber. Moderate to large volume of well-formed stool throughout the colon. No bowel wall thickening or surrounding inflammatory changes are identified. Appendix is not well seen, there are no findings of acute appendicitis are identified.? No intraperitoneal free fluid or free air. ABDOMINAL WALL: No significant hernia is appreciated.? LYMPHOVASCULAR STRUCTURES: Calcific atherosclerosis is present in the abdominal aorta and iliac arteries.? BLADDER: No focal mass or wall thickening seen.? No bladder calculi.? PELVIC VISCERA: Normal CT appearance of the uterus.? No adnexal mass seen. OSSEOUS STRUCTURES: Mild osteoarthritis in the hips. No fracture or malalignment.? CT/CT abdomen pelvis w con IMPRESSION: 1. No evidence of pulmonary emboli. No acute pulmonary findings. 2. Diffuse mural thickening the esophagus is similar to prior and most consistent with esophagitis. Consider further assessment with barium swallow or GI consultation on a nonemergent basis. 3. No acute malalignment in the abdomen and pelvis. 4. Hepatic steatosis and borderline hepatomegaly. ? ECG Data Attestation: I personally reviewed and interpreted this ECG as follows: Interpretation: Normal sinus rhythm with a rate of 70, normal OK, normal QRS, normal QT Discharge Plan Discharge Clinical Impression: DVT (deep venous thrombosis) Patient Disposition: Admitted As Inpatient
[2021-04-09] MEDS: Morphine Sulfate 4 MG/ML CARTRIDGE IVPUSH (19:19)
[2021-04-09] MEDS: ondansetron HCL 4 MG/2 ML VIAL IVPUSH ×2 (19:20→22:45)
[2021-04-09 19:30] VITALS: BP 147/95; PULSE 70; RESP 16; TEMP 37; O2SAT 94
[2021-04-09 19:39] LABS: INTERNATIONAL NORM RATIO 1.6 (0.9-1.1); Prothrombin Time 18.3 SEC (9.9-13.0)
[2021-04-09 19:50] LABS: Partial Thromboplastin Time 97.8 SEC (24.1-38.0); Troponin-I High Sensitivity 7.6 ng/L (<3.5-17.0)
[2021-04-09 19:52] LABS: COVID-19 Test Negative (Negative)
[2021-04-09] MEDS: iohexoL 350 MG/ML 100 ML INFUS..BTL IV (19:56)
--- NOTE | 2021-04-09 20:22 | PHA.MEDREC ---
Pharmacy Consult ? Medication Reconciliation Pharmacy has completed the medication reconciliation. Joycelyn OwensD
[2021-04-09] MEDS: HYDROmorphone HCl 0.5 MG/0.5 ML SYRINGE IVPUSH (20:46)
[2021-04-09 20:47] VITALS: BP 162/85; PULSE 71; RESP 20; TEMP 37; O2SAT 97
[2021-04-09 21:27] LABS: Appearance Urine CLEAR; Color Urine YELLOW; Glucose Urine UA NEG (NEG); Leukocyte Esterase Urine NEG (NEG); Nitrite Urine NEG (NEG); UACC Culture Trigger NO; Urine Blood TRACE (NEG); Urine Ketones NEG (NEG); Urine Protein TRACE MG/DL (NEG-TRACE)
[2021-04-09 21:33] LABS: Bacteria Urine TRACE /LPF; Squamous Epithelial Cell Urine 2+ /LPF; WBC Urine 0-2 /HPF (0-4)
[2021-04-09] MEDS: Melatonin 3 MG TABLET 6 MG PO (22:25)
--- NOTE | 2021-04-09 22:36 | P.HPHOSP_ITS ---
History of Present Illness Date of Service: 04/09/21 Chief Complaint: Left lower extremity pain and swelling 56-year-old female with a past medical history of hypertension, hypothyroidism, GERD, history of right lower extremity DVT presumed to be secondary to antiphospholipid syndrome was on Lovenox for about a month; has not had any followups followed by; presented to the hospital today with a chief complaint of left lower extremity pain and swelling for the past 1 week. The swelling has been gradually worsening; and has increased pain limiting her ambulation. Hence decided to come to the ER for further evaluation. Denies any chest pain, shortness of breath, dyspnea on exertion. Denies any fever chills cough. Denies any recent travel or sick contacts. Patient reports that she has a history of COVID-19 infection Denies any numbness tingling or focal weakness. Denies any paresthesias in the left lower extremity. Review of all other systems is negative except mentioned above ER course: Per ER team patient noted to have left lower extremity swelling, pulses are palpable; firm but compressible compartments; venous duplex showed extensive DVT of the left lower extremity; on labs noted to have elevated PTT of 292; ER team also spoke to vascular surgery doctors on the people who recommended to admit to the Medicine Service, mom urgency intervention recommended. Also mentioned like IVC filter can be considered. Patient also had CT angio of the chest done which showed no evidence of pulmonary embolism. Patient received Lovenox and admitted to the hospital for further management. [facility] Medical History DVT (deep venous thrombosis) Hypothyroid Kidney stone Raynaud's disease without gangrene Family History Father Liver cancer Mother Hypertension Social History Household Members: Spouse Housing: House Do you presently have visiting nurse or other home services: No Alcohol intake: never Patient Tobacco Use Status: Current everyday Tobacco user Tobacco use type: Cigarette Cigarette Packs Per Day: 0.5 Cigarettes Per Day: 10.0 e-Cigarette/Vaping Use: Never Used Second Hand Smoke Exposure: No Advance Directives: No Advance Directives Information Provided: No Patient : No service: No Current occupational status: employed Meds Allergies Allergy/AdvReac Type Severity Reaction Status Date / Time No Known Allergies Allergy Verified 04/09/21 17:02 Active Medications: Current Medications Acetaminophen (Acetaminophen 325 Mg Tablet) 650 mg PO Q6H PRN PRN Reason: Pain, Mild (Pain Scale 1-3) Amlodipine Besylate (Amlodipine Besylate 5 Mg Tablet) 5 mg PO DAILY [facility]; Protocol Docusate Sodium (Docusate Sodium 100 Mg Capsule) 100 mg PO DAILY PRN PRN Reason: Constipation Enoxaparin Sodium (Enoxaparin Sodium 120 Mg/0.8 Ml Syringe) 95 mg 1 mg/kg (95 mg) SUBCUT Q12H [facility] Hydromorphone HCl (Hydromorphone Hcl 1 Mg/Ml Syringe) 0.5 mg IVPUSH Q4H PRN; Protocol PRN Reason: Pain, Severe (Pain Scale 7-10) Levothyroxine Sodium (Levothyroxine Sodium 150 Mcg Tablet) 300 mcg PO DAILY [facility] Melatonin (Melatonin 3 Mg Tablet) 6 mg PO BEDTIME PRN PRN Reason: Insomnia Omeprazole (Omeprazole 40 Mg Capsule.Dr) 40 mg PO DAILY [facility] Pharmacy Consult (Consult Rx Perform Med Rec) 1 each MISCELLANE ONCE PRN PRN Reason: Consult order Senna (Sennosides 8.6 Mg Tablet) 17.2 mg PO BEDTIME PRN PRN Reason: Constipation Sodium Chloride (0.9 % Sodium Chloride Flush 3 Ml Syringe) 3 ml IVFLUSH QSHIFT [facility] Home Medications Medication Instructions Recorded Confirmed Last Taken Type amlodipine 5 mg tablet 5 mg PO DAILY 04/09/21 04/09/21 04/08/21 History Physical Exam Vital Signs and Narrative: Vital Signs: Last Vital Signs Temp 98.6 F 04/09/21 20:47 Pulse 71 04/09/21 20:47 Resp 20 04/09/21 20:47 BP 162/85 H 04/09/21 20:47 Pulse Ox 97 04/09/21 20:47 BMI result Body Mass Index 32.8 Gen: Appears be in no acute distress HEENT: NCAT, Moist mucosa. Pulmonary: Vesicular breath sounds, fair air entry CVS: Faint murmur + Abdomen: BS+, Soft, Nontender Extremities: Warm well perfused; left lower extremities tender and swollen up to thigh. Peripheral pulses present. Sensations equal bilaterally. Patient denies paresthesias Neuro: Alert and awake. Grossly nonfocal Results Labs CBC and Chem 7: 04/09/21 17:16 04/09/21 17:16 Labs: Laboratory Results - last 24 hr 04/09/21 04/09/21 04/09/21 17:16 17:16 19:00 MCV 93.4 MCH 33.3 H MCHC 35.6 H RDW 13.2 Plt Count 213 MPV 9.0 L Immature Gran % (Auto) 1.0 H Neut % (Auto) 73.5 H Lymph % (Auto) 16.1 L [place] % (Auto) 8.1 Eos % (Auto) 1.0 Baso % (Auto) 0.3 Lymph # (Auto) 1.9 [place] # (Auto) 0.9 Eos # (Auto) 0.1 Baso # (Auto) 0.0 Abs Immat Gran (auto) 0.12 H Absolute Neuts (auto) 8.4 H Absolute Nucleated RBC 0.000 Nucleated RBC % (auto) 0.0 PT INR APTT Anion Gap 13 Estim Creat Clear Calc 102.9 Estimated GFR > 60 Random Glucose 120 H Calcium 9.8 D Total Bilirubin 0.5 Direct Bilirubin 0.2 AST 34 H ALT 37 H Alkaline Phosphatase 102 D Total Protein 8.3 H Albumin 4.2 Lipase 34 Urine Color Urine Appearance Urine pH Ur Specific [place] Urine Protein Urine Glucose (UA) Urine Ketones Urine Blood Urine Nitrite Ur Leukocyte Esterase Urine RBC Urine WBC Ur Squamous Epith Cells Urine Bacteria COVID-19 ([facility]) Negative COVID-19 Clin Com See Note 04/09/21 04/09/21 19:18 21:20 MCV MCH MCHC RDW Plt Count MPV Immature Gran % (Auto) Neut % (Auto) Lymph % (Auto) [place] % (Auto) Eos % (Auto) Baso % (Auto) Lymph # (Auto) [place] # (Auto) Eos # (Auto) Baso # (Auto) Abs Immat Gran (auto) Absolute Neuts (auto) Absolute Nucleated RBC Nucleated RBC % (auto) PT 18.3 H INR 1.6 H APTT 97.8 H* Anion Gap Estim Creat Clear Calc Estimated GFR Random Glucose Calcium Total Bilirubin Direct Bilirubin AST ALT Alkaline Phosphatase Total Protein Albumin Lipase Urine Color YELLOW Urine Appearance CLEAR Urine pH 6.0 Ur Specific [place] 1.010 Urine Protein TRACE Urine Glucose (UA) NEG Urine Ketones NEG Urine Blood TRACE Urine Nitrite NEG Ur Leukocyte Esterase NEG Urine RBC 5-9 H Urine WBC 0-2 Ur Squamous Epith Cells 2+ Urine Bacteria TRACE COVID-19 ([facility]) COVID-19 Clin Com Imaging Radiologist's Impressions: Impressions Venous Duplex 04/09/21 17:35 IMPRESSION: Deep vein thrombus within the left lower extremity from the proximal femoral vein through the calf veins. Additional thrombus present in the profunda femoral vein. This critical result was discussed by telephone with Dr. Leyva on 04/09/2021 at 6:03 PM. Abdomen/Pelvis CT 04/09/21 20:08 IMPRESSION: 1. No evidence of pulmonary emboli. No acute pulmonary findings. 2. Diffuse mural thickening the esophagus is similar to prior and most consistent with esophagitis. Consider further assessment with barium swallow or GI consultation on a nonemergent basis. 3. No acute malalignment in the abdomen and pelvis. 4. Hepatic steatosis and borderline hepatomegaly. VTE: negative Chest CTA 04/09/21 20:08 IMPRESSION: 1. No evidence of pulmonary emboli. No acute pulmonary findings. 2. Diffuse mural thickening the esophagus is similar to prior and most consistent with esophagitis. Consider further assessment with barium swallow or GI consultation on a nonemergent basis. 3. No acute malalignment in the abdomen and pelvis. 4. Hepatic steatosis and borderline hepatomegaly. VTE: negative Assessment and Plan (1) DVT (deep venous thrombosis): Qualifiers: Affected thrombotic vein of extremity: popliteal Chronicity: unspecified DVT location: lower extremity Laterality: right Qualified Code(s): I82.431 - Acute embolism and thrombosis of right popliteal vein Status: Acute Plan 56-year-old female with a past medical history of hypertension, hypothyroidism, GERD, history of right lower extremity DVT presumed to be secondary to antiphospholipid syndrome was on Lovenox for about a month; has not had any followups followed by; presented to the hospital today with a chief complaint of left lower extremity pain and swelling for the past 1 week. Noted to have DVT on ultrasound. Admitted for further management. Left lower extremity DVT: Venous duplex showed DVT left lower extremity from proximal femoral vein through the calf veinss. Also noted thrombosis in the profound femoral vein. Venous duplex in October 2020 showed right lower extremity DVT in proximal femoral, popliteal, profound femoral vein. CT chest today showed no evidence of pulmonary embolism Continue Lovenox Vascular surgery consult notified, considering IVC filter. No plan for thrombolysis currently. Elevated PTT: Patient had prior history of elevated PTT. Oncology for further recommendations. Esophagitis: Patient on PPI at home. Will continue History of hypertension: Continue home amlodipine History of hypothyroidism continue home levothyroxine DVT prophylaxis: Patient on Lovenox Code status: Full code Quality Stroke Does the patient have a stroke diagnosis?: No VTE Prior VTE?: No VTE Risk Level:: Medical - moderate - high VTE Device Contraindication: Treatment Not Indicated VTE Drug Contraindication: N/A - Med Ordered
[2021-04-09] MEDS: Enoxaparin Sodium 100 MG/ML SYRINGE 95 MG SUBCUT (22:45)
[2021-04-09] MEDS: 0.9 % Sodium Chloride Flush 3 ML SYRINGE IVFLUSH (22:46)
[2021-04-09] MEDS: amLODIPine Besylate 5 MG TABLET PO (22:47)
[2021-04-09] MEDS: HYDROmorphone HCl 1 MG/ML SYRINGE 0.5 MG IVPUSH (22:52)
[2021-04-09 23:34] VITALS: BP 173/100
[2021-04-09 23:59] VITALS: BP 173/94; PULSE 74; RESP 17; TEMP 36.8; O2SAT 97
[2021-04-10] VITALS (8 sets, daily range): BP systolic 134–173; BP diastolic 72–96; PULSE 72–87; RESP 12–22; TEMP 36.4; O2SAT 91–98
[2021-04-10] MEDS: Acetaminophen 325 MG TABLET 650 MG PO ×2 (00:05→07:31)
[2021-04-10] MEDS: HYDROmorphone HCl 1 MG/ML SYRINGE 0.5 MG IVPUSH ×3 (04:58→21:57)
[2021-04-10 06:36] LABS: MANUAL DIFF FLAG NO
[2021-04-10 06:44] LABS: Basophils Percent Auto 0.3 % (0-2); Eosinophils Absolute Auto 0.1 X10*3/uL (0.0-0.4); Eosinophils Percent Auto 0.9 % (0-4); Hematocrit 37.7 % (37.0-47.0); Imm Gran Abs Auto 0.11 X10*3/uL (0.00-0.03); Lymphocytes Absolute Auto 1.8 X10*3/uL (1.2-4.9); Lymphocytes Percent Auto 16.5 % (20-40); Mean Corpuscular HGB Conc 34.5 g/dl (31.0-35.0); Mean Corpuscular Hemoglobin 33.2 pg (27.0-33.0); Mean Corpuscular Volume 96.2 fL (80.0-98.0); Mean Platelet Volume 9.2 fL (9.4-12.3); Monocytes Absolute Auto 0.8 X10*3/uL (0.1-1.2); Monocytes Percent Auto 7.7 % (2-11); Neutrophils Absolute Auto 7.8 x10*3/uL (2.0-8.3); Neutrophils Percent Auto 73.6 % (45-73); Platelet Count 203 X10*3/uL (160-400); Red Blood Count 3.92 X10*6/uL (4.20-5.50); Red Cell Distribution Width 13.4 % (11.0-16.0); White Blood Count 10.6 X10*3/uL (4.8-10.8)
[2021-04-10 07:24] LABS: Anion Gap 14 (12-20); Blood Urea Nitrogen 15 mg/dL (9-16); Calcium 9.1 mg/dL (8.4-10.2); Carbon Dioxide 29 mmol/L (22-29); Chloride 101 mmol/L (96-108); Creatinine Clr Calc Pharmacy 104.4; Estimated Glomerular Filt Rate > 60; Glucose Random 122 mg/dL (60-115); Potassium 3.8 mmol/L (3.3-5.1); Sodium 140 mmol/L (135-145)
[2021-04-10] MEDS: Levothyroxine Sodium 150 MCG TABLET 300 MCG PO (07:31)
[2021-04-10] MEDS: amLODIPine Besylate 5 MG TABLET PO (07:31)
[2021-04-10] MEDS: Omeprazole 40 MG CAPSULE.DR PO (07:33)
[2021-04-10] MEDS: 0.9 % Sodium Chloride Flush 3 ML SYRINGE IVFLUSH (07:42)
--- NOTE | 2021-04-10 07:59 | P.DS_ITS ---
DS: Providers Provider Date of Service: 04/12/21 Date of admission: 04/09/21 22:34 Primary care physician: Unknown Physician Consults: 04/09/21 22:32 Consult to Hematology / Oncology Routine Consulting Provider: Anali Tamayo Reason for consultation: Recurrent DVT; extensive left lower extremity DVT Consult to Vascular Surgery Routine Consulting Provider: Remi Judge Reason for consultation: Extensive left lower extremity DVT DS: Diagnosis Discharge Diagnosis (1) DVT (deep venous thrombosis): Status: Acute DS: Summary Hospital Course Hospital Course: Chief Complaint: Left lower extremity pain and swelling 56-year-old female with a past medical history of hypertension, hypothyroidism, GERD, history of right lower extremity DVT presumed to be secondary to antiphospholipid syndrome was on Lovenox for about a month; has not had any followups followed by; presented to the hospital today with a chief complaint of left lower extremity pain and swelling for the past 1 week.? The swelling has been gradually worsening; and has increased pain limiting her ambulation.? Hence decided to come to the ER for further evaluation.? Denies any chest pain, shortness of breath, dyspnea on exertion.? Denies any fever chills cough.? Denies any recent travel or sick contacts.? Patient reports that she has a history of COVID-19 infection Denies any numbness tingling or focal weakness.? Denies any paresthesias in the left lower extremity.? Review of all other systems is negative except mentioned above ER course: Per ER team patient noted to have left lower extremity swelling, pulses are pal pable; firm but compressible compartments; venous duplex showed extensive DVT of the left lower extremity; on labs noted to have elevated PTT of 292; ER team also spoke to vascular surgery doctors on the people who recommended to admit to the Medicine Service, mom urgency intervention recommended.? Also mentioned like IVC filter can be considered.? Patient also had CT angio of the chest done which showed no evidence of pulmonary embolism.? Patient received Lovenox and admitted to the hospital for further management. Hospital course: Patient was admitted and given Lovenox, vascular surgery is not recommending intervention, Director Financial Systems Dr. Tamayo recommends permanent anticoagulation with coumadin, INR is 2.1 today will have INr check tomorrow Time Spent with Patient Time attestation: Total time spent providing and/or coordinating discharge services: Discharge coordination time: Greater than 30 minutes Quality: Stroke Does the patient have a stroke diagnosis?: No Physical Exam Vital Signs: Vital Signs: Last Vital Signs Temp 98.2 F 04/09/21 23:59 Pulse 87 04/10/21 07:36 Resp 22 H 04/10/21 07:36 BP 173/96 H 04/10/21 07:36 Pulse Ox 98 04/10/21 07:36 BMI result Body Mass Index 32.8 Const: Other: General: AO X 3, no acute distress Resp: CTA bilateral CVS: S1,S2,RRR GI: +BS, NT, no distention Skin: No rash Ext: singinfiant swelling in left leg, no discolaration Neuro: motor grossly intact Psych: appropriate affect DS: Data Data Completed and Pending Completed studies during hospitalization [Text1]: Procedures Dilation of Lower Esophagus with Intraluminal Device, Via Natural or Artificial Opening Endoscopic (10/22/20) Labs on day of discharge: Laboratory Results - last 24 hr 04/09/21 04/09/21 04/09/21 17:16 17:16 19:00 WBC 11.5 H RBC 4.12 L Hgb 13.7 Hct 38.5 MCV 93.4 MCH 33.3 H MCHC 35.6 H RDW 13.2 Plt Count 213 MPV 9.0 L Immature Gran % (Auto) 1.0 H Neut % (Auto) 73.5 H Lymph % (Auto) 16.1 L [place] % (Auto) 8.1 Eos % (Auto) 1.0 Baso % (Auto) 0.3 Lymph # (Auto) 1.9 [place] # (Auto) 0.9 Eos # (Auto) 0.1 Baso # (Auto) 0.0 Abs Immat Gran (auto) 0.12 H Absolute Neuts (auto) 8.4 H Absolute Nucleated RBC 0.000 Nucleated RBC % (auto) 0.0 PT INR APTT Sodium 139 Potassium 4.0 Chloride 101 Carbon Dioxide 29 Anion Gap 13 BUN 16 Creatinine 0.74 Estim Creat Clear Calc 102.9 Estimated GFR > 60 Random Glucose 120 H Calcium 9.8 D Total Bilirubin 0.5 Direct Bilirubin 0.2 AST 34 H ALT 37 H Alkaline Phosphatase 102 D Troponin I High Sens Total Protein 8.3 H Albumin 4.2 Lipase 34 Urine Color Urine Appearance Urine pH Ur Specific [place] Urine Protein Urine Glucose (UA) Urine Ketones Urine Blood Urine Nitrite Ur Leukocyte Esterase Urine RBC Urine WBC Ur Squamous Epith Cells Urine Bacteria COVID-19 ([facility]) Negative COVID-19 Clin Com See Note 04/09/21 04/09/21 04/09/21 19:18 19:18 21:20 WBC RBC Hgb Hct MCV MCH MCHC RDW Plt Count MPV Immature Gran % (Auto) Neut % (Auto) Lymph % (Auto) [place] % (Auto) Eos % (Auto) Baso % (Auto) Lymph # (Auto) [place] # (Auto) Eos # (Auto) Baso # (Auto) Abs Immat Gran (auto) Absolute Neuts (auto) Absolute Nucleated RBC Nucleated RBC % (auto) PT 18.3 H INR 1.6 H APTT 97.8 H* Sodium Potassium Chloride Carbon Dioxide Anion Gap BUN Creatinine Estim Creat Clear Calc Estimated GFR Random Glucose Calcium Total Bilirubin Direct Bilirubin AST ALT Alkaline Phosphatase Troponin I High Sens 7.6 Total Protein Albumin Lipase Urine Color YELLOW Urine Appearance CLEAR Urine pH 6.0 Ur Specific [place] 1.010 Urine Protein TRACE Urine Glucose (UA) NEG Urine Ketones NEG Urine Blood TRACE Urine Nitrite NEG Ur Leukocyte Esterase NEG Urine RBC 5-9 H Urine WBC 0-2 Ur Squamous Epith Cells 2+ Urine Bacteria TRACE COVID-19 ([facility]) COVID-19 Clin Com 04/10/21 04/10/21 06:18 06:18 WBC 10.6 RBC 3.92 L Hgb 13.0 Hct 37.7 MCV 96.2 MCH 33.2 H MCHC 34.5 RDW 13.4 Plt Count 203 MPV 9.2 L Immature Gran % (Auto) 1.0 H Neut % (Auto) 73.6 H Lymph % (Auto) 16.5 L [place] % (Auto) 7.7 Eos % (Auto) 0.9 Baso % (Auto) 0.3 Lymph # (Auto) 1.8 [place] # (Auto) 0.8 Eos # (Auto) 0.1 Baso # (Auto) 0.0 Abs Immat Gran (auto) 0.11 H Absolute Neuts (auto) 7.8 Absolute Nucleated RBC 0.000 Nucleated RBC % (auto) 0.0 PT INR APTT Sodium 140 Potassium 3.8 Chloride 101 Carbon Dioxide 29 Anion Gap 14 BUN 15 Creatinine 0.73 Estim Creat Clear Calc 104.4 Estimated GFR > 60 Random Glucose 122 H Calcium 9.1 D Total Bilirubin Direct Bilirubin AST ALT Alkaline Phosphatase Troponin I High Sens Total Protein Albumin Lipase Urine Color Urine Appearance Urine pH Ur Specific [place] Urine Protein Urine Glucose (UA) Urine Ketones Urine Blood Urine Nitrite Ur Leukocyte Esterase Urine RBC Urine WBC Ur Squamous Epith Cells Urine Bacteria COVID-19 ([facility]) COVID-19 Clin Com Discharge Plan Discharge Anticipated Discharge Date/Time: 04/12/21 11:27 Patient Disposition: Home, Self-Care Discharge Diagnosis: Left leg DVT Referrals: John Canales FNP-EDWIGE [Nurse Practitioner] - 1 Week (Your doctor's office should call you to schedule a follow up appointment. ) Discharge Medications: New warfarin 5 mg tablet 5 mg PO DAILY Qty: 30 0RF Continued levothyroxine 300 mcg tablet 300 mcg PO DAILY 30 Days Qty: 30 2RF omeprazole 40 mg capsule,delayed release(DR/EC) 40 mg PO DAILY 90 Days Qty: 90 0RF amlodipine 5 mg tablet 5 mg PO DAILY 0RF Protocol: Hold for SBP< HOLD for SBP < : 90 Discharge Orders: Discharge Order (Routine); Ordered 04/12/21 Ordered By: Jordy Quinn Diet: advance to usual diet Activity on Discharge: As tolerated Stand Alone Forms: Patient Portal Discharge page, Work/School Release Care Plan Goals: Resolution of DVT Health Concerns: left leg DVT Plan of Treatment: Take coumadin as recommended and follow up with your Doctor in a week Visiting nurse to assess tomorrow and check INR, goal of INR 2 to 3 Assessment: As above
--- NOTE | 2021-04-10 10:02 | PC.NURSE ---
Pt A&Ox3, nauseas this morning, pain 3/10 to LLE, LLE is red, warm and tight. + pulse with good cap refill. NSR on monitor. Good PO intake, call ackerman within reach. Will continue to monitor.
--- NOTE | 2021-04-10 10:16 | PM.HEMONCCN ---
Subjective - Subjective Chief complaint: Recurrent clot, now in the opposite leg Patient: known to practice within the last 3 years Consult date: 04/10/21 Primary Care Provider: Unknown Physician Medical Summary: Diagnosis: Antiphospholipid antibody syndrome, recurrent DVT Patient initially diagnosed with right lower extremity DVT in October 2020. She developed a spontaneous DVT, workup revealed positivity for lupus anticoagulant. She was prescribed Lovenox but patient stopped taking it after a month. She now presents with left lower extremity swelling. HPI - Consult Narrative Reason for consult: Recurrent DVT Narrative: Sreekanth Dorantes is a 56 year old female who presents with swelling in the left leg and severe pain. This is been going on for 1 week. She states that she took Lovenox for a month in October and stopped taking it when she ran out. She denies any pleuritic chest pain, shortness of breath or cough. Review of Systems - Constitutional Denies poor appetite, Denies weight loss - Eyes Denies blurry vision - Cardiovascular Denies chest pain with activity - Respiratory Reports no additional respiratory complaints - Gastrointestinal Reports system reviewed and no additional complaints, except as documented - Neurologic Reports system reviewed and no additional complaints, except as documented, Denies dizziness, Denies headache(s), Denies numbness, Denies tingling, Denies weakness PMFSH Medical History: Medical History (Last Reviewed 04/09/21 @ 18:46 by Oliva Luciano NP) DVT (deep venous thrombosis) Hypothyroid Kidney stone Raynaud's disease without gangrene Family History: Family History (Last Reviewed 04/09/21 @ 18:46 by Oliva Luciano NP) Father Liver cancer Mother Hypertension Social History: Social History (Last Reviewed 10/24/20 @ 10:24 by Chen Green MD) Living Situation History: Household Members: Spouse Housing: House Do you presently have visiting nurse or other home services: No Tobacco History: Patient Tobacco Use Status: Current everyday Tobacco Tobacco use type: Cigarette Cigarette Packs Per Day: 0.5 e-Cigarette/Vaping Use: Never Used Second Hand Smoke Exposure: No Advance Directives: Advance Directives: No Advance Directives Information Provided: No Nutrition Assessment: Patient : No Occupation Assessmet: service: No Current occupational status: employed Home Medications and Allergies Current Medications: Current Medications Acetaminophen (Acetaminophen 325 Mg Tablet) 650 mg PO Q6H PRN PRN Reason: Pain, Mild (Pain Scale 1-3) Last Admin: 04/10/21 07:31 Dose: 650 mg Documented by: Amlodipine Besylate (Amlodipine Besylate 5 Mg Tablet) 5 mg PO DAILY [facility]; Protocol Last Admin: 04/10/21 07:31 Dose: 5 mg Documented by: Docusate Sodium (Docusate Sodium 100 Mg Capsule) 100 mg PO DAILY PRN PRN Reason: Constipation Enoxaparin Sodium (Enoxaparin Sodium 100 Mg/Ml Syringe) 95 mg SUBCUT Q12H [facility] Last Admin: 04/09/21 22:45 Dose: 95 mg Documented by: Hydromorphone HCl (Hydromorphone Hcl 1 Mg/Ml Syringe) 0.5 mg IVPUSH Q4H PRN; Protocol PRN Reason: Pain, Severe (Pain Scale 7-10) Last Admin: 04/10/21 04:58 Dose: 0.5 mg Documented by: Levothyroxine Sodium (Levothyroxine Sodium 150 Mcg Tablet) 300 mcg PO DAILY@629 [facility] Last Admin: 04/10/21 07:31 Dose: 300 mcg Documented by: Melatonin (Melatonin 3 Mg Tablet) 6 mg PO BEDTIME PRN PRN Reason: Insomnia Last Admin: 04/09/21 22:25 Dose: 6 mg Documented by: Omeprazole (Omeprazole 40 Mg Capsule.Dr) 40 mg PO DAILY@629 [facility] Last Admin: 04/10/21 07:33 Dose: 40 mg Documented by: Ondansetron HCl (Ondansetron Odt 4 Mg Tab.Rapdis) 4 mg TRANSLINGU Q8H PRN PRN Reason: Nausea and Vomiting Pharmacy Consult (Consult Rx Perform Med Rec) 1 each MISCELLANE ONCE PRN PRN Reason: Consult order Senna (Sennosides 8.6 Mg Tablet) 17.2 mg PO BEDTIME PRN PRN Reason: Constipation Sodium Chloride (0.9 % Sodium Chloride Flush 3 Ml Syringe) [facility] Last Admin: 04/10/21 07:42 Dose: 3 ml Documented by: Home Medications Medication Instructions Recorded Confirmed Type amlodipine 5 mg tablet 5 mg PO DAILY 04/09/21 04/09/21 History Allergies Allergy/AdvReac Type Severity Reaction Status Date / Time No Known Allergies Allergy Verified 04/09/21 17:02 Physical Exam Vital signs: Vital Signs Temp 98.2 F 04/09/21 23:59 Pulse 72 04/10/21 08:15 Resp 14 04/10/21 08:15 BP 151/80 H 04/10/21 08:15 Pulse Ox 93 04/10/21 08:15 Intake & Output 04/09/21 04/10/21 04/10/21 18:59 06:59 18:59 Other: Weight 95.254 kg Weight 95.254 kg - Constitutional Present: mild distress - Routine HEENT Exam Head: Present: normal inspection Eye: Present: normal appearance - Routine Neck Exam Present: supple. Absent: lymphadenopathy - Routine Respiratory Exam Present: CTAB. Absent: respiratory distress - Routine Cardiovascular Exam Cardiovascular: Present: RRR, S1, S2 - Routine Abdominal Exam Present: soft - Routine Extremities Exam Present: calf tenderness, pedal edema, tenderness - Routine Skin Exam Present: intact. Absent: cyanosis - Routine Neurological Exam Present: alert, oriented X3 Hem/Onc Consult Result - Labs CBC & Chem 7: 04/10/21 06:18 04/10/21 06:18 Labs: Short CBC 04/09/21 04/10/21 Range/Units 17:16 06:18 WBC 11.5 H 10.6 (4.8-10.8) X10*3/uL Hgb 13.7 13.0 (12.0-16.0) g/dl Hct 38.5 37.7 (37.0-47.0) % Plt Count 213 203 (160-400) X10*3/uL BMP 04/09/21 04/10/21 17:16 06:18 Sodium 139 140 Potassium 4.0 3.8 Chloride 101 101 Carbon Dioxide 29 29 BUN 16 15 Creatinine 0.74 0.73 Calcium 9.8 D 9.1 D Liver Function 04/09/21 Range/Units 17:16 Total Bilirubin 0.5 (0.0-1.0) mg/dL Direct Bilirubin 0.2 (0.0-0.5) mg/dL AST 34 H (5-31) U/L ALT 37 H (0-31) U/L Alkaline Phosphatase 102 D (39-117) U/L Albumin 4.2 (3.5-5.0) g/dL Urine 04/09/21 Range/Units 21:20 Urine Color YELLOW Urine Appearance CLEAR Urine pH 6.0 (5.0-8.0) Ur Specific [place] 1.010 (1.005-1.025) Urine Protein TRACE (NEG-TRACE) MG/DL Urine Glucose (UA) NEG (NEG) MG/DL Assessment and Plan Patient Active problem list reviewed?: Yes (1) Antiphospholipid antibody syndrome Status: Acute Assessment and plan: 1. This is a 56-year-old woman who was diagnosed with antiphospholipid antibody syndrome in October 2020. She presented with right lower extremity DVT, coagulation studies/mixing study was positive for inhibitor and lupus anticoagulant test was positive. Anti cardiolipin and beta 2 glycoprotein antibodies were negative. Based on positive coagulation test and acute DVT, she was diagnosed with antiphospholipid antibody syndrome. Recommendation was for her to receive long-term anticoagulation with warfarin. She was started on Lovenox in the hospital and discharged home. Unfortunately, she did not follow-up with any physicians and she now presents with left lower extremity DVT involving proximal femoral vein through the calf veins. Additional thrombus present in the profunda femoral vein. Imaging of the chest and abdomen/ pelvis does not show any evidence of pulmonary embolism or malignancy. Patient has been started on Lovenox 1 mg/ kg b.i.d.. I recommend starting her on warfarin as well, goal INR is between 2.5-3.5. Since she has lupus antibody, she is not a candidate for the direct oral anticoagulants, as they have not shown to be effective in this situation. She was advised that she will need indefinite or long-term anticoagulation. She was advised to follow-up with hematology upon discharge. - Time Spent With Patient Time Spent with Patient (in minutes): 20
[2021-04-10] MEDS: Ondansetron ODT 4 MG TAB.RAPDIS TRANSLINGU (10:29)
[2021-04-10] MEDS: Enoxaparin Sodium 100 MG/ML SYRINGE 95 MG SUBCUT ×2 (10:29→22:01)
--- NOTE | 2021-04-10 10:51 | P.PNIM_ITS ---
Subjective Subjective Date of Service: 04/10/21 Interval History: F/u on left lower extremity DVT, has lots of pain in the leg, swelling Review of Systems no fever, pain and welling in the leg Physical Exam Vital Signs: Vital Signs: Last Vital Signs Temp 98.2 F 04/09/21 23:59 Pulse 72 04/10/21 08:15 Resp 14 04/10/21 08:15 BP 151/80 H 04/10/21 08:15 Pulse Ox 93 04/10/21 08:15 BMI result Body Mass Index 32.8 Const: Other: General: AO X 3, no acute distress Resp: CTA bilateral CVS: S1,S2,RRR GI: +BS, NT, no distention Skin: No rash, extensive swelling of the left leg, tender Neuro: motor grossly intact Psych: appropriate affect Objective Data Active Medications Acetaminophen (Acetaminophen 325 Mg Tablet) 650 mg PO Q6H PRN PRN Reason: Pain, Mild (Pain Scale 1-3) Last Admin: 04/10/21 07:31 Dose: 650 mg Documented by: CLYDE Amlodipine Besylate (Amlodipine Besylate 5 Mg Tablet) 5 mg PO DAILY [facility]; Protocol Last Admin: 04/10/21 07:31 Dose: 5 mg Documented by: CLYDE Docusate Sodium (Docusate Sodium 100 Mg Capsule) 100 mg PO DAILY PRN PRN Reason: Constipation Enoxaparin Sodium (Enoxaparin Sodium 100 Mg/Ml Syringe) 95 mg SUBCUT Q12H [facility] Last Admin: 04/10/21 10:29 Dose: 95 mg Documented by: CLYDE Hydromorphone HCl (Hydromorphone Hcl 1 Mg/Ml Syringe) 0.5 mg IVPUSH Q4H PRN; Protocol PRN Reason: Pain, Severe (Pain Scale 7-10) Last Admin: 04/10/21 10:29 Dose: 0.5 mg Documented by: CLYDE Levothyroxine Sodium (Levothyroxine Sodium 150 Mcg Tablet) 300 mcg PO DAILY@0630 [facility] Last Admin: 04/10/21 07:31 Dose: 300 mcg Documented by: CLYDE Melatonin (Melatonin 3 Mg Tablet) 6 mg PO BEDTIME PRN PRN Reason: Insomnia Last Admin: 04/09/21 22:25 Dose: 6 mg Documented by: MYRTLE Omeprazole (Omeprazole 40 Mg Capsule.Dr) 40 mg PO DAILY@0630 [facility] Last Admin: 04/10/21 07:33 Dose: 40 mg Documented by: CLYDE Ondansetron HCl (Ondansetron Odt 4 Mg Tab.Rapdis) 4 mg TRANSLINGU Q8H PRN PRN Reason: Nausea and Vomiting Last Admin: 04/10/21 10:29 Dose: 4 mg Documented by: CLYDE Pharmacy Consult (Consult Rx Perform Med Rec) 1 each MISCELLANE ONCE PRN PRN Reason: Consult order Senna (Sennosides 8.6 Mg Tablet) 17.2 mg PO BEDTIME PRN PRN Reason: Constipation Sodium Chloride (0.9 % Sodium Chloride Flush 3 Ml Syringe) 3 ml IVFLUSH QSHIFT [facility] Last Admin: 04/10/21 07:42 Dose: 3 ml Documented by: CLYDE Warfarin Sodium (Warfarin Sodium 5 Mg Tablet) 5 mg PO DAILY@1800 [facility] Labs CBC & Chem 7: 04/10/21 06:18 04/10/21 06:18 Labs: Laboratory Results - last 24 hr 04/09/21 04/09/21 04/09/21 17:16 17:16 19:00 MCV 93.4 MCH 33.3 H MCHC 35.6 H RDW 13.2 Plt Count 213 MPV 9.0 L Immature Gran % (Auto) 1.0 H Neut % (Auto) 73.5 H Lymph % (Auto) 16.1 L [place] % (Auto) 8.1 Eos % (Auto) 1.0 Baso % (Auto) 0.3 Lymph # (Auto) 1.9 Prentiss # (Auto) 0.9 Eos # (Auto) 0.1 Baso # (Auto) 0.0 Abs Immat Gran (auto) 0.12 H Absolute Neuts (auto) 8.4 H Absolute Nucleated RBC 0.000 Nucleated RBC % (auto) 0.0 PT INR APTT Anion Gap 13 Estim Creat Clear Calc 102.9 Estimated GFR > 60 Random Glucose 120 H Calcium 9.8 D Total Bilirubin 0.5 Direct Bilirubin 0.2 AST 34 H ALT 37 H Alkaline Phosphatase 102 D Total Protein 8.3 H Albumin 4.2 Lipase 34 Urine Color Urine Appearance Urine pH Ur Specific [place] Urine Protein Urine Glucose (UA) Urine Ketones Urine Blood Urine Nitrite Ur Leukocyte Esterase Urine RBC Urine WBC Ur Squamous Epith Cells Urine Bacteria COVID-19 ([facility]) Negative COVID-19 Clin Com See Note 04/09/21 04/09/21 04/10/21 19:18 21:20 06:18 MCV 96.2 MCH 33.2 H MCHC 34.5 RDW 13.4 Plt Count 203 MPV 9.2 L Immature Gran % (Auto) 1.0 H Neut % (Auto) 73.6 H Lymph % (Auto) 16.5 L [place] % (Auto) 7.7 Eos % (Auto) 0.9 Baso % (Auto) 0.3 Lymph # (Auto) 1.8 [place]iss # (Auto) 0.8 Eos # (Auto) 0.1 Baso # (Auto) 0.0 Abs Immat Gran (auto) 0.11 H Absolute Neuts (auto) 7.8 Absolute Nucleated RBC 0.000 Nucleated RBC % (auto) 0.0 PT 18.3 H INR 1.6 H APTT 97.8 H* Anion Gap Estim Creat Clear Calc Estimated GFR Random Glucose Calcium Total Bilirubin Direct Bilirubin AST ALT Alkaline Phosphatase Total Protein Albumin Lipase Urine Color YELLOW Urine Appearance CLEAR Urine pH 6.0 Ur Specific [place] 1.010 Urine Protein TRACE Urine Glucose (UA) NEG Urine Ketones NEG Urine Blood TRACE Urine Nitrite NEG Ur Leukocyte Esterase NEG Urine RBC 5-9 H Urine WBC 0-2 Ur Squamous Epith Cells 2+ Urine Bacteria TRACE COVID-19 ([facility]) COVID-19 Clin Com 04/10/21 06:18 MCV MCH MCHC RDW Plt Count MPV Immature Gran % (Auto) Neut % (Auto) Lymph % (Auto) [place] % (Auto) Eos % (Auto) Baso % (Auto) Lymph # (Auto) [place] # (Auto) Eos # (Auto) Baso # (Auto) Abs Immat Gran (auto) Absolute Neuts (auto) Absolute Nucleated RBC Nucleated RBC % (auto) PT INR APTT Anion Gap 14 Estim Creat Clear Calc 104.4 Estimated GFR > 60 Random Glucose 122 H Calcium 9.1 D Total Bilirubin Direct Bilirubin AST ALT Alkaline Phosphatase Total Protein Albumin Lipase Urine Color Urine Appearance Urine pH Ur Specific [place] Urine Protein Urine Glucose (UA) Urine Ketones Urine Blood Urine Nitrite Ur Leukocyte Esterase Urine RBC Urine WBC Ur Squamous Epith Cells Urine Bacteria COVID-19 ([facility]) COVID-19 Clin Com Assessment and Plan (1) Dysphagia: Status: Resolved (2) DVT (deep venous thrombosis): Status: Acute Plan 56/f Pat with hypothyroidism, Raynaud's, tobacco dependence, Lupus anticoagulatn RLE DVT in oct 2020 stopped anticoagulation after a month and now has LLE DVT.. 1. LLE DVT and prior RLE DVT in setting of APLAS (anti phospholipid syndrome.) -hematology advises coumadin bridging with Lovenox continue enoxaparin, continue coumadin INR 1.6 -pain control with Morphine 2.HTN, continue Norvasc, no metoprolol 25 bid 3. hypothyroidism - LT4 4. Esophagitis--PPI Home tomorrow Quality Stroke Does the patient have a stroke diagnosis?: No VTE Prior VTE?: No VTE Risk Level:: Medical - moderate - high VTE Device Contraindication: Treatment Not Indicated VTE Drug Contraindication: N/A - Med Ordered
--- NOTE | 2021-04-10 10:55 | PM.CNGS ---
History of Present Illness Consult details Consult date: 04/10/21 Reason for consult: other (dvt) Narrative: 53-year-old female who was admitted last night with new onset DVT. Of note she has a prior history of a right lower extremity DVT. She was subsequently discharged on Lovenox. I believe she completed a 1 month course of that and subsequently stopped, for unclear reasons. She never refilled her prescription. She now presents with new onset left lower extremity DVT. It has been quite painful for her. She also has a history of antiphospholipid syndrome. In addition she is negative for [employer] bronze disease. She now presents to us for vascular evaluation. In addition she reports no prior history aside from the right lower extremity incident of DVTs. She reports no family history DVT but her mother did pass away from a cerebral aneurysm. Review of Systems Constitutional: Constitutional: Reports as per HPI ENT: Reports system reviewed and no additional complaints, except as documented Cardiovascular: Cardiovascular: Denies chest pain, Denies chest pain at rest and Denies chest pain with activity Respiratory: Respiratory: Denies chest congestion and Denies cough Gastrointestinal: Gastrointestinal: Reports no additional gastrointestinal complaints Musculoskeletal: Musculoskeletal: Reports abnormal gait, Reports muscle cramps and Reports radiating pain into limb (Left leg) Integumentary/Breasts: Skin/Breast: Reports pruritus and Denies wounds Neurologic: Reports system reviewed and no additional complaints, except as documented and Reports abnormal gait Psychiatric: Psychiatric: Denies no additional psychiatric complaints [facility] Past Medical History Medical History DVT (deep venous thrombosis) Hypothyroid Kidney stone Raynaud's disease without gangrene Family History Family History Father Liver cancer Mother Hypertension Social History Social History Household Members: Spouse Housing: House Do you presently have visiting nurse or other home services: No Alcohol intake: never Patient Tobacco Use Status: Current everyday Tobacco user Tobacco use type: Cigarette Cigarette Packs Per Day: 0.5 e-Cigarette/Vaping Use: Never Used Second Hand Smoke Exposure: No Advance Directives: No Advance Directives Information Provided: No Patient : No service: No Current occupational status: employed Meds Allergies Allergy/AdvReac Type Severity Reaction Status Date / Time No Known Allergies Allergy Verified 04/09/21 17:02 Active Medications: Current Medications Acetaminophen (Acetaminophen 325 Mg Tablet) 650 mg PO Q6H PRN PRN Reason: Pain, Mild (Pain Scale 1-3) Last Admin: 04/10/21 07:31 Dose: 650 mg Documented by: Amlodipine Besylate (Amlodipine Besylate 5 Mg Tablet) 5 mg PO DAILY [facility]; Protocol Last Admin: 04/10/21 07:31 Dose: 5 mg Documented by: Docusate Sodium (Docusate Sodium 100 Mg Capsule) 100 mg PO DAILY PRN PRN Reason: Constipation Enoxaparin Sodium (Enoxaparin Sodium 100 Mg/Ml Syringe) 95 mg SUBCUT Q12H [facility] Last Admin: 04/10/21 10:29 Dose: 95 mg Documented by: Hydromorphone HCl (Hydromorphone Hcl 1 Mg/Ml Syringe) 0.5 mg IVPUSH Q4H PRN; Protocol PRN Reason: Pain, Severe (Pain Scale 7-10) Last Admin: 04/10/21 10:29 Dose: 0.5 mg Documented by: Levothyroxine Sodium (Levothyroxine Sodium 150 Mcg Tablet) 300 mcg PO DAILY@0630 [facility] Last Admin: 04/10/21 07:31 Dose: 300 mcg Documented by: Melatonin (Melatonin 3 Mg Tablet) 6 mg PO BEDTIME PRN PRN Reason: Insomnia Last Admin: 04/09/21 22:25 Dose: 6 mg Documented by: Omeprazole (Omeprazole 40 Mg Capsule.Dr) 40 mg PO DAILY@0630 [facility] Last Admin: 04/10/21 07:33 Dose: 40 mg Documented by: Ondansetron HCl (Ondansetron Odt 4 Mg Tab.Rapdis) 4 mg TRANSLINGU Q8H PRN PRN Reason: Nausea and Vomiting Last Admin: 04/10/21 10:29 Dose: 4 mg Documented by: Pharmacy Consult (Consult Rx Perform Med Rec) 1 each MISCELLANE ONCE PRN PRN Reason: Consult order Senna (Sennosides 8.6 Mg Tablet) 17.2 mg PO BEDTIME PRN PRN Reason: Constipation Sodium Chloride (0.9 % Sodium Chloride Flush 3 Ml Syringe) 3 ml IVFLUSH QSHIFT [facility] Last Admin: 04/10/21 07:42 Dose: 3 ml Documented by: Warfarin Sodium (Warfarin Sodium 5 Mg Tablet) 5 mg PO DAILY@1800 [facility] Home Medications Medication Instructions Recorded Confirmed Last Taken Type amlodipine 5 mg tablet 5 mg PO DAILY 04/09/21 04/09/21 04/08/21 History Physical Exam Vital Signs: Vital Signs: Last Vital Signs Temp 98.2 F 04/09/21 23:59 Pulse 72 04/10/21 08:15 Resp 14 04/10/21 08:15 BP 151/80 H 04/10/21 08:15 Pulse Ox 93 04/10/21 08:15 BMI result Body Mass Index 32.8 Const: General: cooperative, healthy appearing and comfortable Orientation/consciousness: oriented to person, oriented to place and oriented to time Neck: Carotids: no bruits Chest: Chest palpation & inspection: normal inspection of the chest and normal palpation of entire chest wall Resp: Effort & Inspection: normal respiratory effort and able to speak in complete sentences Cardio: Rate: regular rate Heart sounds: S1 normal heart sound present and S2 normal heart sound present Peripheral pulses: Peripheral pulses 2+ throughout GI: Inspection: Yes normal to inspection Skin: Other: +2 edema, left greater than right. Is tender as well. General skin exam: dry skin Neuro: General: oriented to person, oriented to place and oriented to time Extrem: General: Yes edema Right lower extremity: full ROM, normal capillary refill and edema Left lower extremity: full ROM, normal capillary refill and edema Psych: Mental Status: mental status grossly normal Results Labs Result diagrams: 04/10/21 06:18 04/10/21 06:18 Labs: Abnormal lab results 04/09/21 04/09/21 04/09/21 Range/Units 17:16 17:16 19:18 WBC 11.5 H (4.8-10.8) X10*3/uL RBC 4.12 L (4.20-5.50) X10*6/uL MCH 33.3 H (27.0-33.0) pg MCHC 35.6 H (31.0-35.0) g/dl MPV 9.0 L (9.4-12.3) fL Immature Gran % (Auto) 1.0 H (0.0-0.4) % Neut % (Auto) 73.5 H (45-73) % Lymph % (Auto) 16.1 L (20-40) % Abs Immat Gran (auto) 0.12 H (0.00-0.03) X10*3/uL Absolute Neuts (auto) 8.4 H (2.0-8.3) x10*3/uL PT 18.3 H (9.9-13.0) SEC INR 1.6 H (0.9-1.1) APTT 97.8 H* (24.1-38.0) SEC Random Glucose 120 H (60-115) mg/dL AST 34 H (5-31) U/L ALT 37 H (0-31) U/L Total Protein 8.3 H (6.5-8.0) g/dL Urine RBC (0) /HPF 04/09/21 04/10/21 04/10/21 Range/Units 21:20 06:18 06:18 WBC (4.8-10.8) X10*3/uL RBC 3.92 L (4.20-5.50) X10*6/uL MCH 33.2 H (27.0-33.0) pg MCHC (31.0-35.0) g/dl MPV 9.2 L (9.4-12.3) fL Immature Gran % (Auto) 1.0 H (0.0-0.4) % Neut % (Auto) 73.6 H (45-73) % Lymph % (Auto) 16.5 L (20-40) % Abs Immat Gran (auto) 0.11 H (0.00-0.03) X10*3/uL Absolute Neuts (auto) (2.0-8.3) x10*3/uL PT (9.9-13.0) SEC INR (0.9-1.1) APTT (24.1-38.0) SEC Random Glucose 122 H (60-115) mg/dL AST (5-31) U/L ALT (0-31) U/L Total Protein (6.5-8.0) g/dL Urine RBC 5-9 H (0) /HPF Short CBC 04/09/21 04/10/21 Range/Units 17:16 06:18 WBC 11.5 H 10.6 (4.8-10.8) X10*3/uL Hgb 13.7 13.0 (12.0-16.0) g/dl Hct 38.5 37.7 (37.0-47.0) % Plt Count 213 203 (160-400) X10*3/uL BMP 04/09/21 04/10/21 17:16 06:18 Sodium 139 140 Potassium 4.0 3.8 Chloride 101 101 Carbon Dioxide 29 29 BUN 16 15 Creatinine 0.74 0.73 Calcium 9.8 D 9.1 D Liver Function 04/09/21 Range/Units 17:16 Total Bilirubin 0.5 (0.0-1.0) mg/dL Direct Bilirubin 0.2 (0.0-0.5) mg/dL AST 34 H (5-31) U/L ALT 37 H (0-31) U/L Alkaline Phosphatase 102 D (39-117) U/L Albumin 4.2 (3.5-5.0) g/dL Urine 04/09/21 Range/Units 21:20 Urine Color YELLOW Urine Appearance CLEAR Urine pH 6.0 (5.0-8.0) Ur Specific [place] 1.010 (1.005-1.025) Urine Protein TRACE (NEG-TRACE) MG/DL Urine Glucose (UA) NEG (NEG) MG/DL All other labs normal. Imaging Additional studies: Ultrasound from 04/09/2021 was reviewed. DVT of left lower extremity from proximal femoral to calf veins. Additional thrombus within the profundus vein. Assessment and Plan (1) DVT (deep venous thrombosis): Qualifiers: Affected thrombotic vein of extremity: femoral Chronicity: acute DVT location: lower extremity Laterality: left Qualified Code(s): I82.412 - Acute embolism and thrombosis of left femoral vein Status: Acute Plan In short patient has an acute left DVT and a prior right-sided DVT. It is a fairly extensive in for inguinal DVT with no appearance of extension into the iliofemoral segment. Would not recommend thrombolysis. Of bigger concern is the 2 DVTs in of fairly acute amount of time. Although she was only on anticoagulants for 1 month it is quite concerning that she has now had a 2nd DVT. Would recommend formal anticoagulation which may unfortunately in her be lifelong. She will need a significant Hematology Oncology workup. Would also ask their input in terms of long-term anticoagulants which she may be more compliant with. I did discuss routine conservative measures with the patient including importance of compression, leg elevation and and exercise. She will follow up with us on an as-needed basis. Thank you for allowing us to assist in her care. Procedures Date of Service Date of Service: 04/10/21
[2021-04-10 11:56] LABS: INTERNATIONAL NORM RATIO 1.6 (0.9-1.1); Prothrombin Time 18.4 SEC (9.9-13.0)
--- NOTE | 2021-04-10 13:09 | PC.NURSE ---
Pt OOB to commode, assist x 1 stand and pivot. Linens changed at this time, good urine output. Pt requesting more Tylenol. Informed pt of q6hr for Tylenol, next dose due at 1330. Call ackerman within reach, will continue to monitor.
--- NOTE | 2021-04-10 14:47 | MHC.CM.PN ---
Met with patient in regards to discharge planning. Patient lives with her & son, ambulates independently and had no services prior to coming to the hospital. No services anticipated to be needed because patient is not homebound. PCP verified as John Canales. Patient has a HCP at home and will attempt to obtain a copy. Patient has not received any Covid vaccines. Patient's will tranpsort patient home when medically stable. Continue to monitor for d/c needs.
[2021-04-10] MEDS: Warfarin Sodium 5 MG TABLET PO (17:32)
--- NOTE | 2021-04-10 20:09 | PC.NURSE ---
Assumed care of pt at 1900. Pt resting in bed, in NAD. Endorsing ongoing RLE pain. Given ice chips per request, denies further needs, call light at hand. Awaiting inpatient bed assignment.
--- NOTE | 2021-04-10 21:35 | PC.NURSE ---
Report called to armand RN. Pt to floor in stable condition w/ all belongings, attached to portable campus monitor
[2021-04-10] MEDS: Melatonin 3 MG TABLET 6 MG PO (21:58)
[2021-04-11] VITALS (7 sets, daily range): BP systolic 121–156; BP diastolic 64–85; PULSE 76–85; RESP 17–19; TEMP 36.9–37.4; O2SAT 93–96
[2021-04-11] MEDS: 0.9 % Sodium Chloride Flush 3 ML SYRINGE IVFLUSH ×3 (00:47→17:42)
[2021-04-11] MEDS: Acetaminophen 325 MG TABLET 650 MG PO ×2 (01:55→19:43)
[2021-04-11] MEDS: HYDROmorphone HCl 1 MG/ML SYRINGE 0.5 MG IVPUSH ×3 (01:59→19:45)
[2021-04-11] MEDS: Omeprazole 40 MG CAPSULE.DR PO (05:59)
[2021-04-11] MEDS: Levothyroxine Sodium 150 MCG TABLET 300 MCG PO (05:59)
[2021-04-11 06:07] LABS: INTERNATIONAL NORM RATIO 1.9 (0.9-1.1); Prothrombin Time 21.3 SEC (9.9-13.0)
[2021-04-11] MEDS: Enoxaparin Sodium 100 MG/ML SYRINGE 95 MG SUBCUT ×2 (09:21→22:58)
[2021-04-11] MEDS: amLODIPine Besylate 5 MG TABLET PO (09:21)
--- NOTE | 2021-04-11 10:31 | MHC.CM.PN ---
Addendum entered by Cyndi Bagley 04/11/21 14:45: [facility] UNABLE TO OFFER SERVICES UNTIL TUESDAY REFERRAL UPDATED IN ATTEMPTS TO SECURE SERVICES Original Note: REFERRAL TO [facility] TO ASK IF THEY CAN OFFER RN SKILLS. PATIENT WILL NEED LOVENOX BID AND INR CHECKED ON Tuesday04/13/21. CASE MANAGEMENT FOLLOWING IT IS THE WEEKEND AND AGENCY MAY NOT BE ABLE TO VERIFY PCP.
[2021-04-11] MEDS: Warfarin Sodium 3 MG TABLET PO (17:42)
[2021-04-12] VITALS: BP 151/74; PULSE 62; RESP 17; TEMP 36.3; O2SAT 95
[2021-04-12] MEDS: 0.9 % Sodium Chloride Flush 3 ML SYRINGE IVFLUSH (01:22)
[2021-04-12 04:00] VITALS: BP 132/76; PULSE 70; RESP 17; TEMP 36.6; O2SAT 95
[2021-04-12] MEDS: Omeprazole 40 MG CAPSULE.DR PO (06:06)
[2021-04-12] MEDS: Levothyroxine Sodium 150 MCG TABLET 300 MCG PO (06:06)
[2021-04-12 06:20] LABS: INTERNATIONAL NORM RATIO 2.1 (0.9-1.1); Prothrombin Time 24.4 SEC (9.9-13.0)
[2021-04-12 07:54] VITALS: BP 134/76; PULSE 73; RESP 18; TEMP 36.8; O2SAT 95
--- NOTE | 2021-04-12 08:36 | P.F2F_ITS ---
Service Date Service Date: 04/12/21 Encounter Date of encounter: 04/12/21 Reasons for Services Signs and symptoms assessed: Leg leg pain due to extensive DVT Reason for intermediate: monitoring of PT/INR Homebound: Leaving the home is medically contraindicated at this time without the asist of a device and/or another person due th the listed conditions above and below. Reason homebound: pain with ambulation Certification: Based on the above findings, I certify that this patient is confined to the home and needs intermittent intermediate care, physical therapy and/or speech therapy, or continues to need occupational therapy. The patient is under my care, and I have initiated the establishment of the plan of care. The patient will be followed by a physician who will periodically review the plan of care.
[2021-04-12] MEDS: Sennosides 8.6 MG TABLET 17.2 MG PO (08:43)
[2021-04-12] MEDS: amLODIPine Besylate 5 MG TABLET PO (08:43)
--- NOTE | 2021-04-12 09:21 | MHC.CM.PN ---
Addendum entered by Teressa Mejia 04/14/21 09:58: POST DC NOTE: CM RECEIVED A RETURN CALL FROM DA AT THE [facility]. SHE REPORTS THIS PT HAS BEEN REFERRED TO THEM IN THE PAST AND THEY ARE UNABLE TO ACCEPT HER DUE TO TREATMENT NON-COMPLIANCE. NOTIFIED Addendum entered by Teressa Mejia 04/12/21 12:09: VM MESSAGE LEFT FOR [facility] INFORMING THEM OF UPCOMING REFERRAL. Addendum entered by Teressa Mejia 04/12/21 12:02: CM MET WITH PT AND INFORMED HER THAT A VNA WAS NOT SECURED. SHE REPORTS SHE CAN COME TO THE [facility] AND UNDERSTANDS IF THE LAB IS NOT OPEN TOMORROW DUE TO DAY, SHE CAN PRESENT TO THE ED WITH HER LAB ORDERS. PT REPORTS SHE HAS BEEN ON LOVENOX BEFORE AND SHE HAS A FRIEND THAT HELPS HER, SHE HAS NO CONCERNS RELATED TO ADMINISTRATION OF THIS MEDICATION. PT WILL DC HOME TODAY WITH A PLAN TO FOLLOW UP AT [facility] TOMORROW A REFERRAL WILL ALSO BE MADE TO [facility] PT WILL SELF ARRANGE TRANSPORT Addendum entered by Teressa Mejia 04/12/21 11:52: CM INFORMED PT WILL NEED HER PT/INR CHECKED TOMORROW REFERRALS HAVE BEEN MADE TO 16 VISITING NURSE AGENCIES HOWEVER DUE TO PTS INSURANCE, NOT MANY ARE CONTRACTED, THE OTHERS ARE DECLINING DUE TO STAFFING. NA HAS INDICATED THEIR FIRST AVAILABILITY IS TUESDAY. CM CURRENTLY INVESTIGATING THE POSSIBILITY OF PT GOING TO URGENT CARE FOR HER LABS TOMORROW AND HAVING A REFERRAL PLACED TO THE [facility]MADIN CLINIC ONCE OPEN Original Note: PT TO DC HOME TODAY WITH NO SERVICES TO TRANSPORT
[2021-04-12 11:50] VITALS: BP 138/83; PULSE 75; RESP 17; TEMP 36.7; O2SAT 93
[2021-04-12] MEDS: Enoxaparin Sodium 100 MG/ML SYRINGE 95 MG SUBCUT (12:05)
[2021-04-12] MEDS: Acetaminophen 325 MG TABLET 650 MG PO (12:06)
== END 2021-04-12 13:51 | disposition home or self-care (01) | DRG 197 ==
LOC: HO.ED 19:21 → HO.EDOVER 22:38 → HO.S3 04-10 20:18
PROVIDERS: Nurse Practitioner Family; Admitting Provider Hospitalist; Emergency Provider Emergency Medicine; PCP Nurse Practitioner Family; Visit Provider Internal Medicine
DX: I82.412 Acute embolism and thrombosis of left femoral vein (principal); D68.61 Antiphospholipid syndrome; I82.4Z2 Acute embolism and thrombosis of unspecified deep veins of left distal lower extremity; E03.9 Hypothyroidism, unspecified; I10 Essential (primary) hypertension; K20.90 Esophagitis, unspecified without bleeding; F17.210 Nicotine dependence, cigarettes, uncomplicated; Z71.6 Tobacco abuse counseling; Z86.16 Personal history of COVID-19; Z20.822 Contact with and (suspected) exposure to COVID-19; Z79.01 Long term (current) use of anticoagulants; Z79.890 Hormone replacement therapy; Z79.899 Other long term (current) drug therapy
CPT/HCPCS: 36415; 71275; 74177; 80048; 80076; 81001; 83690; 84484; 85025; 85610; 85730; 87635; 93005; 93971; 96374; 96375; 96376; 99284; J1170; J1650; J2270; J2405; Q9967

== ENCOUNTER 2021-04-13 14:39 | Outpatient (REF) | payer OTHER, SELFPAY ==
[2021-04-13 16:40] LABS: INTERNATIONAL NORM RATIO 2.3 (0.9-1.1); Prothrombin Time 26.8 SEC (9.9-13.0)
== END 2021-04-13 14:40 | disposition home or self-care (01) ==
LOC: HO.HMGCLDS 14:39
PROVIDERS: Internal Medicine; PCP Nurse Practitioner Family; Visit Provider Nurse Practitioner Family
DX: I82.409 Acute embolism and thrombosis of unspecified deep veins of unspecified lower extremity (principal)
CPT/HCPCS: 36415; 85610

== ENCOUNTER 2021-05-07 17:13 | Emergency (ER) | payer OTHER, SELFPAY ==
--- NOTE | ~2021-05-07 | US_ITS ---
EXAMINATION: US VENOUS ULTRASOUND WITH DOPPLER LOWER EXTREMITY, LEFT CLINICAL INFORMATION: Swollen and painful left lower extremity. COMPARISON: 04/09/2021. TECHNIQUE: Ultrasound of the deep veins is performed from the hip to the calf with compression sonography and color and pulse Doppler assessment. Spectral analysis with color-flow imaging is performed. FINDINGS: There is redemonstration of extensive thrombosis within the left lower extremity from the proximal femoral vein through the calf veins. However, the degree of clot burden is improved when compare to 04/09/2021 and is now nonocclusive with some flow identified on color Doppler. The peroneal veins are not well seen due to overlying subcutaneous edema. The common femoral vein and greater saphenous vein appear patent. There is significant soft tissue swelling in the mid calf. US/US venous duplex LE LT IMPRESSION: Persistent but decreased clot burden throughout the left lower extremity from the proximal femoral vein to the calf veins which is now nonocclusive. Significant soft tissue swelling in the left mid calf.
[2021-05-07 17:17] VITALS: BP 159/93; PULSE 88; RESP 19; TEMP 36.6; O2SAT 99; BMI 33.8
[2021-05-07 19:51] LABS: MANUAL DIFF FLAG NO
[2021-05-07 19:52] LABS: Basophils Percent Auto 0.4 % (0-2); Eosinophils Absolute Auto 0.2 X10*3/uL (0.0-0.4); Eosinophils Percent Auto 2.8 % (0-4); Hemoglobin 11.9 g/dl (12.0-16.0); Imm Gran Abs Auto 0.06 X10*3/uL (0.00-0.03); Imm Gran Pct Auto 0.7 % (0.0-0.4); Lymphocytes Absolute Auto 2.3 X10*3/uL (1.2-4.9); Lymphocytes Percent Auto 28.6 % (20-40); Mean Corpuscular Hemoglobin 33.4 pg (27.0-33.0); Mean Corpuscular Volume 98.3 fL (80.0-98.0); Mean Platelet Volume 9.5 fL (9.4-12.3); Monocytes Absolute Auto 0.6 X10*3/uL (0.1-1.2); Monocytes Percent Auto 6.9 % (2-11); Neutrophils Absolute Auto 4.9 x10*3/uL (2.0-8.3); Neutrophils Percent Auto 60.6 % (45-73); Platelet Count 201 X10*3/uL (160-400); Red Blood Count 3.56 X10*6/uL (4.20-5.50); Red Cell Distribution Width 13.6 % (11.0-16.0); White Blood Count 8.1 X10*3/uL (4.8-10.8)
[2021-05-07 20:05] LABS: Prothrombin Time 64.6 SEC (9.9-13.0)
[2021-05-07 20:15] LABS: Anion Gap 14 (12-20); Blood Urea Nitrogen 12 mg/dL (9-16); Carbon Dioxide 27 mmol/L (22-29); Chloride 106 mmol/L (96-108); Creatinine Clr Calc Pharmacy 117.1; Estimated Glomerular Filt Rate > 60; Glucose Random 91 mg/dL (60-115); Potassium 4.2 mmol/L (3.3-5.1); Sodium 143 mmol/L (135-145)
[2021-05-07 20:22] LABS: INTERNATIONAL NORM RATIO 5.5 (0.9-1.1)
--- NOTE | 2021-05-07 23:44 | PC.NURSE ---
This RN calling pt multiple times throughout the night. Registration unsure if pt LWT. Pt is not in the WR @ this time. This RN contacting pt via cell phone to locate her, this RN leaving a message for pt.
== END 2021-05-07 23:45 | disposition left against medical advice (07) ==
PROVIDERS: Emergency Provider Emergency Medicine; PCP Nurse Practitioner Family
DX: I82.412 Acute embolism and thrombosis of left femoral vein (principal); M79.89 Other specified soft tissue disorders; R79.1 Abnormal coagulation profile; Z86.718 Personal history of other venous thrombosis and embolism
CPT/HCPCS: 36415; 80048; 85025; 85610; 93971; 99282; 99284

== ENCOUNTER 2021-05-08 08:26 | Emergency (ER) | payer OTHER, SELFPAY ==
--- NOTE | ~2021-05-08 | XR_ITS ---
EXAMINATION: XR CHEST CLINICAL INFORMATION: Elevated INR due to bilateral DVT COMPARISON: Previous chest x-ray October 2020 chest CTA March 2021 TECHNIQUE: Frontal view of the chest was obtained. FINDINGS: No significant abnormality is noted involving the heart, lungs, mediastinum, bony thorax or soft tissues. XR/XR chest 1V IMPRESSION: Unremarkable examination.
[2021-05-08 08:29] VITALS: BP 183/80; PULSE 82; RESP 20; TEMP 36.8; O2SAT 100; BMI 32.8
--- NOTE | 2021-05-08 09:29 | ECG_ITS ---
Test Reason : elevated inr Blood Pressure : / mmHG Vent. Rate : 058 BPM Atrial Rate : 058 BPM P-R Int : 160 ms QRS Dur : 092 ms QT Int : 432 ms P-R-T Axes : -27 -17 143 degrees QTc Int : 424 ms Sinus bradycardia Nonspecific T wave abnormality Abnormal ECG When compared with ECG of 09-APR-2021 19:24, T inversion noted in lateral leads Referred By: Janay Palacios Electronically Signed By:AMADO SANDY
[2021-05-08 10:11] LABS: MANUAL DIFF FLAG NO
[2021-05-08 10:12] LABS: Basophils Percent Auto 0.4 % (0-2); Eosinophils Absolute Auto 0.2 X10*3/uL (0.0-0.4); Eosinophils Percent Auto 2.4 % (0-4); Hematocrit 35.6 % (37.0-47.0); Hemoglobin 12.2 g/dl (12.0-16.0); Imm Gran Abs Auto 0.05 X10*3/uL (0.00-0.03); Imm Gran Pct Auto 0.7 % (0.0-0.4); Lymphocytes Absolute Auto 1.8 X10*3/uL (1.2-4.9); Lymphocytes Percent Auto 24.8 % (20-40); Mean Corpuscular HGB Conc 34.3 g/dl (31.0-35.0); Mean Corpuscular Hemoglobin 33.6 pg (27.0-33.0); Mean Corpuscular Volume 98.1 fL (80.0-98.0); Mean Platelet Volume 9.3 fL (9.4-12.3); Monocytes Absolute Auto 0.5 X10*3/uL (0.1-1.2); Neutrophils Absolute Auto 4.6 x10*3/uL (2.0-8.3); Neutrophils Percent Auto 64.7 % (45-73); Platelet Count 201 X10*3/uL (160-400); Red Blood Count 3.63 X10*6/uL (4.20-5.50); Red Cell Distribution Width 13.7 % (11.0-16.0); White Blood Count 7.1 X10*3/uL (4.8-10.8)
[2021-05-08 10:18] LABS: INTERNATIONAL NORM RATIO 4.4 (0.9-1.1); Prothrombin Time 51.1 SEC (9.9-13.0)
--- NOTE | 2021-05-08 10:34 | ED.RECABL ---
HPI - Recheck/Abnormal Lab/Rx General Chief Complaint: Recheck/Abnormal Lab/Rx Stated Complaint: Bloodcot in leg Time Seen by Provider: 05/08/21 09:28 Source: patient and family Mode of arrival: ambulatory Limitations: no limitations History of Present Illness HPI narrative: 56-year-old female with a past medical history of antiphospholipid syndrome with DVT's in b/l lower extremities recently dx c LLE DVT on 04/09/21 currently on 5mg of Coumadin daily who has a visiting nurse who comes weekly did check her PT INR at her house presenting to the ED after she was called by her nurse/PCP explaining that her INR yesterday was 6.2 and they told her that she should come to the emergency department for further evaluation and treatment. She did not take her Coumadin yesterday or today. Patient denies any dizziness, headaches, change in vision, neck pain/stiffness, trouble swallowing or breathing, chest pain, cough, dyspnea on exertion, orthopnea, palpitations, abdominal pain or distension, worsening lower extremity pain/swelling or redness, rashes, recent falls or injuries or recent travel or sick contacts or any other symptoms complaints or concerns at this time. MD complaint: abnormal lab (Elevated PT/INR at 6.2 yesterday per patient taken by home visiting nurse blood draw) Initial visit (ago): day(s) (Was seen by visiting nurse yesterday at home) Returns today for: called because of abnormal lab/test Symptoms since prior visit: no new symptoms Context: called for abnormal lab result Associated symptoms: none Treatments prior to arrival: other (See above) Related Data Home Medications Medication Instructions Recorded Confirmed amlodipine 5 mg tablet 5 mg PO DAILY 04/09/21 04/21/21 Previous Rx's Medication Instructions Recorded levothyroxine 300 mcg tablet 300 mcg PO DAILY 30 Days #30 tab 11/02/20 warfarin 5 mg tablet 5 mg PO DAILY #30 tab 04/12/21 omeprazole 40 mg capsule,delayed 40 mg PO DAILY 90 Days #90 cap 05/05/21 release Allergies Allergy/AdvReac Type Severity Reaction Status Date / Time No Known Allergies Allergy Verified 04/21/21 18:26 Review of Systems Review of Systems: Constitutional : + called for abnormal elevated PT INR taken yesterday by VNA nurse at home which was 6.2 INR. No Weight loss, No Fever, No Chills, No Night Sweats, No Fatigue, No Malaise ENT/Mouth : No Hearing loss, No Ear Pain, No Nasal Congestion, No Sinus Pain, No Hoarseness, No sore throat, No Rhinorrhea, No Swallowing Difficulty Eyes: No Eye Pain, No Swelling, No Redness, No Foreign Body, No Discharge, No Vision Changes Cardiovascular : No Chest Pain, No SOB, No Dyspnea on Exertion, No Orthopnea, No Edema, No Palpitations Respiratory : No Cough, No Sputum, No Wheezing, No Smoke Exposure, No Dyspnea Gastrointestinal : No Nausea, No Vomiting, No Diarrhea, No Constipation, No abdominal Pain, No Hematochezia, No Melena Genitourinary : no irregular bleeding, No Dysuria, No Urinary Frequency, No Hematuria, No Urinary Incontinence, No Urgency, No Flank Pain, No Urinary Flow Changes, No Hesitancy Musculoskeletal : + LLE swelling/pain improved per pt and significant other at bedside, No Myalgias Skin : No Skin Lesions, No rash Neuro : No Weakness, No Numbness, No Paresthesias, No Loss of Consciousness, No Dizziness, No Headache Psych : No Anxiety/Panic, No Depression, No SI/HI/AH/VH, No Social Issues, Heme/Lymph: No Bruising, No Bleeding,No Lymphadenopathy Endocrine : No Polyuria, No Polydipsia, No Temperature Intolerance Yes all other systems are reviewed and are negative [facility] Past Medical History Attestation statement: The following information was validated with the patient. Medical History DVT (deep venous thrombosis) Hypothyroid Kidney stone Lupus anticoagulant positive Raynaud's disease without gangrene Family History Family History Father Liver cancer Mother Hypertension Social History Social History Household Members: Spouse Housing: Apartment Do you presently have visiting nurse or other home services: No Alcohol intake: never Patient Tobacco Use Status: Never used Tobacco Tobacco use type: Cigarette Cigarettes Per Day: 2 Years Smoked: 30 e-Cigarette/Vaping Use: Never Used Second Hand Smoke Exposure: No Use of substances other than those prescribed or required for medical reasons: No Advance Directives: No Advance Directives Information Provided: No Patient : No service: No Current occupational status: employed Physical Exam Vital Signs: Vital Signs: Last Vital Signs Temp 98.3 F 05/08/21 08:29 Pulse 82 05/08/21 08:29 Resp 20 05/08/21 08:29 BP 183/80 H 05/08/21 08:29 Pulse Ox 100 05/08/21 08:29 BMI result Body Mass Index 32.8 vital signs have been reviewed as normal and appeared to be correct. Blood pressure 183/80. Heart rate normal. Respiration rate normal. Temperature normal. Oxygen saturation normal. Appearance: Alert. Oriented X3. No acute distress. Head: Normal external exam. Normocephalic. Atraumatic. Eyes: PERRLA. EOMI. Conjunctiva and sclera normal. Eyelids normal. ENT: Pharynx normal. Uvula midline. Moist mucous membranes. Normal voice. Neck: Normal inspection. Neck supple. FROM. No adenopathy. No meningeal signs. No neck mass noted. CVS: Normal heart rate and rhythm. Heart sound normal. Pulses normal throughout. No murmurs/rales/gallops. Respiratory: No respiratory distress. Painless inspiration. Breath sounds normal. No wheezes/rales/rhonchi noted. Chest nontender. No accessory muscle usage noted or decreased air movement noted. Back: Full range of motion noted. Nontender. Skin: Skin warm and dry. Normal skin color. Normal skin turgor. No rashes/lesions/lacerations noted. Extremities: To the left lower extremity/calf patient does have lower extremity tenderness and edema. No erythema noted to lle. No signs of infections. Otherwise no edema/tenderness or erythema or warmth to touch to the right lower extremity. No calf tenderness noted to the right lower extremity at this time. Extremities exhibit normal range of motion and nontender. Neuro: Oriented X 3. No motor deficit. No sensory deficit. Reflexes normal. Normal steady gait. No focal neuro deficits noted. CN's II-XII intact bilaterally? Vascular: +2 radial pulses bilaterally, 2 distal pedal pulses bilaterally, +2 dorsalis pedis bilaterally. Normal cap refill. No cyanosis noted to upper extremity nails and lower extremity toes nails. Course Course Course Narrative: 9:30am - 56-year-old female with a past medical history of antiphospholipid syndrome with DVT's in b/l lower extremities recently dx c LLE DVT on 04/09/21 currently on 5mg of Coumadin daily who has a visiting nurse who comes weekly did check her PT INR at her house presenting to the ED after she was called by her nurse/PCP explaining that her INR yesterday was 6.2 and they told her that she should come to the emergency department for further evaluation and treatment. She did not take her Coumadin yesterday or today. Plan: Repeat labs, chest x-ray, EKG then re-evaluate. Reevaluation(s) Reevaluation #1: - labs returned patient mild baseline anemia similar when compared to prior. PT INR today at 51.1/4.4. Otherwise all other labs WNL. - CXR WNL. - EKG sinus bradycardia with ventricular rate of 58 with nonspecific T-wave abnormalities no acute ischemic change are noted. Similar compared to prior EKG 04/09/2019 - I consulted with the patient's PCP John Song and updated him with the results. He reports that he will contact the patient. - otherwise will DC home with instructions to follow-up with her PCP and to return if any new or worsening symptoms. Patient understands agrees with this plan. Time: 11:37 MDM - Recheck/Abnormal Lab/Rx Medical Records Attestation: I reviewed the patient's medical records. Lab Data Attestation: I reviewed the patient's lab results. Result diagrams: 05/08/21 10:07 05/08/21 10:07 Labs: Lab Results 05/08/21 05/08/21 05/08/21 Range/Units 10:07 10:07 10:07 WBC 7.1 (4.8-10.8) X10*3/uL RBC 3.63 L (4.20-5.50) X10*6/uL Hgb 12.2 (12.0-16.0) g/dl Hct 35.6 L (37.0-47.0) % MCV 98.1 H (80.0-98.0) fL MCH 33.6 H (27.0-33.0) pg MCHC 34.3 (31.0-35.0) g/dl RDW 13.7 (11.0-16.0) % Plt Count 201 (160-400) X10*3/uL MPV 9.3 L (9.4-12.3) fL Immature Gran % (Auto) 0.7 H (0.0-0.4) % Neut % (Auto) 64.7 (45-73) % Lymph % (Auto) 24.8 (20-40) % [place] % (Auto) 7.0 (2-11) % Eos % (Auto) 2.4 (0-4) % Baso % (Auto) 0.4 (0-2) % Lymph # (Auto) 1.8 (1.2-4.9) X10*3/uL [place] # (Auto) 0.5 (0.1-1.2) X10*3/uL Eos # (Auto) 0.2 (0.0-0.4) X10*3/uL Baso # (Auto) 0.0 (0.0-0.2) X10*3/uL Abs Immat Gran (auto) 0.05 H (0.00-0.03) X10*3/uL Absolute Neuts (auto) 4.6 (2.0-8.3) x10*3/uL Absolute Nucleated RBC 0.000 (0.0-0.012) X10*3/uL Nucleated RBC % (auto) 0.0 (0.0-0.2) /100WBC PT 51.1 H (9.9-13.0) SEC INR 4.4 H (0.9-1.1) Sodium 142 (135-145) mmol/L Potassium 4.0 (3.3-5.1) mmol/L Chloride 104 (96-108) mmol/L Carbon Dioxide 30 H (22-29) mmol/L Anion Gap 12 (12-20) BUN 11 (9-16) mg/dL Creatinine 0.70 (0.5-1.4) mg/dL Estim Creat Clear Calc 108.8 Estimated GFR > 60 Random Glucose 90 (60-115) mg/dL Calcium 9.2 (8.4-10.2) mg/dL Magnesium 2.0 (1.6-2.6) mg/dL Total Bilirubin 0.4 (0.0-1.0) mg/dL AST 28 (5-31) U/L ALT 27 (0-31) U/L Alkaline Phosphatase 89 (39-117) U/L B-Natriuretic Peptide (<100) pg/mL Total Protein 7.4 (6.5-8.0) g/dL Albumin 3.8 (3.5-5.0) g/dL // Range/Units 10:10 WBC (4.8-10.8) X10*3/uL RBC (4.20-5.50) X10*6/uL Hgb (12.0-16.0) g/dl Hct (37.0-47.0) % MCV (80.0-98.0) fL MCH (27.0-33.0) pg MCHC (31.0-35.0) g/dl RDW (11.0-16.0) % Plt Count (160-400) X10*3/uL MPV (9.4-12.3) fL Immature Gran % (Auto) (0.0-0.4) % Neut % (Auto) (45-73) % Lymph % (Auto) (20-40) % [place] % (Auto) (2-11) % Eos % (Auto) (0-4) % Baso % (Auto) (0-2) % Lymph # (Auto) (1.2-4.9) X10*3/uL [place] # (Auto) (0.1-1.2) X10*3/uL Eos # (Auto) (0.0-0.4) X10*3/uL Baso # (Auto) (0.0-0.2) X10*3/uL Abs Immat Gran (auto) (0.00-0.03) X10*3/uL Absolute Neuts (auto) (2.0-8.3) x10*3/uL Absolute Nucleated RBC (0.0-0.012) X10*3/uL Nucleated RBC % (auto) (0.0-0.2) /100WBC PT (9.9-13.0) SEC INR (0.9-1.1) Sodium (135-145) mmol/L Potassium (3.3-5.1) mmol/L Chloride (96-108) mmol/L Carbon Dioxide (22-29) mmol/L Anion Gap (12-20) BUN (9-16) mg/dL Creatinine (0.5-1.4) mg/dL Estim Creat Clear Calc Estimated GFR Random Glucose (60-115) mg/dL Calcium (8.4-10.2) mg/dL Magnesium (1.6-2.6) mg/dL Total Bilirubin (0.0-1.0) mg/dL AST (5-31) U/L ALT (0-31) U/L Alkaline Phosphatase (39-117) U/L B-Natriuretic Peptide 79 (<100) pg/mL Total Protein (6.5-8.0) g/dL Albumin (3.5-5.0) g/dL Imaging Data Chest x-ray: Attestation: I personally reviewed and interpreted this imaging study as follows: Radiologist's impression: FINDINGS: No significant abnormality is noted involving the heart, lungs, mediastinum, bony thorax or soft tissues. XR/XR chest 1V IMPRESSION: Unremarkable examination ECG Data Attestation: I personally reviewed and interpreted this ECG as follows: ECG interpretation date: 05/08/21 ECG interpretation time: 11:09 Prior ECG tracings: available for review Interpretation: EKG sinus bradycardia with ventricular rate of 58 with nonspecific T-wave abnormalities no acute ischemic change are noted. Similar compared to prior EKG 04/09/2019 Critical Care Time Critical Care Time Critical Care Time: Yes Total Critical Care Time: 60 Attestation: I personally attest to this time spent taking care of the patient Discharge Plan Discharge Clinical Impression: Elevated INR Patient Disposition: Home, Self-Care Instructions: Elevated INR (ED) Additional Instructions: Do not take her Coumadin for today. Your doctor will contact you and you should discuss with him if he should start taking your Coumadin tomorrow. If you develop any dizziness, headaches, change in vision, chest pain or shortness of breath or worsening symptoms you need to return immediately. Return if any new or worsening symptoms. Follow up with her primary care provider as soon as possible. Prescriptions: No Action levothyroxine 300 mcg tablet 300 mcg PO DAILY 30 Days Qty: 30 2RF omeprazole 40 mg capsule,delayed release(DR/EC) 40 mg PO DAILY 90 Days Qty: 90 0RF amlodipine 5 mg tablet 5 mg PO DAILY 0RF Protocol: Hold for SBP< HOLD for SBP < : 90 warfarin 5 mg tablet 5 mg PO DAILY Qty: 30 0RF Referrals: John Canales, [facility] [Primary Care Provider] - 2 days Print Language: South Korean
[2021-05-08 10:53] LABS: Alanine Aminotransferase 27 U/L (0-31); Albumin Level 3.8 g/dL (3.5-5.0); Alkaline Phosphatase 89 U/L (39-117); Anion Gap 12 (12-20); Aspartate Amino Transferase 28 U/L (5-31); Bilirubin Total 0.4 mg/dL (0.0-1.0); Blood Urea Nitrogen 11 mg/dL (9-16); Calcium 9.2 mg/dL (8.4-10.2); Carbon Dioxide 30 mmol/L (22-29); Chloride 104 mmol/L (96-108); Creatinine Clr Calc Pharmacy 108.8; Estimated Glomerular Filt Rate > 60; Glucose Random 90 mg/dL (60-115); Sodium 142 mmol/L (135-145); Total Protein 7.4 g/dL (6.5-8.0)
[2021-05-08 11:14] LABS: B Type Natriuretic Peptide 79 pg/mL (<100)
[2021-05-08 11:57] VITALS: BP 140/85; PULSE 69; RESP 16; O2SAT 100
== END 2021-05-08 11:58 | disposition home or self-care (01) ==
PROVIDERS: Physician Assistant Medical; Emergency Provider Emergency Medicine; PCP Nurse Practitioner Family
DX: R79.1 Abnormal coagulation profile (principal); M79.662 Pain in left lower leg; R60.0 Localized edema; Z86.718 Personal history of other venous thrombosis and embolism; Z87.891 Personal history of nicotine dependence; Z79.01 Long term (current) use of anticoagulants
CPT/HCPCS: 36415; 71045; 80053; 83735; 83880; 85025; 85610; 93005; 99284; 99291

== ENCOUNTER 2022-03-23 07:56 | Outpatient (REF) | payer OTHER, SELFPAY ==
[2022-03-23 11:32] LABS: Appearance Urine Clear; Color Urine Yellow; Glucose Urine UA Negative (Negative); Leukocyte Esterase Urine Trace (Negative); Nitrite Urine Negative (Negative); PH 5.5 (5.0-9.0); UMIC TRIGGER UACC YES; Urine Blood Small (1+) (Negative); Urine Ketones Negative (Negative); Urine Protein Negative (Neg-Trace)
[2022-03-23 11:39] LABS: MANUAL DIFF FLAG NO
[2022-03-23 11:43] LABS: Bacteria Urine Trace (None Seen); Hyaline Casts Urine 0-2 /LPF (0-2); RBC Urine 0-2 /HPF (0-2); WBC Urine 0-5 /HPF (0-5)
[2022-03-23 11:56] LABS: INTERNATIONAL NORM RATIO 1.3 (0.9-1.1); Prothrombin Time 15.6 SEC (10.0-13.1)
[2022-03-23 12:17] LABS: Basophils Absolute Auto 0.1 X10*3/uL (0.0-0.2); Basophils Percent Auto 0.8 % (0-2); Eosinophils Absolute Auto 0.2 X10*3/uL (0.0-0.4); Eosinophils Percent Auto 3.1 % (0-4); Hematocrit 40.7 % (37.0-47.0); Hemoglobin 13.8 g/dl (12.0-16.0); Imm Gran Abs Auto 0.03 X10*3/uL (0.00-0.03); Imm Gran Pct Auto 0.5 % (0.0-0.4); Lymphocytes Absolute Auto 1.7 X10*3/uL (1.2-4.9); Mean Corpuscular HGB Conc 33.9 g/dl (31.0-35.0); Mean Corpuscular Hemoglobin 31.8 pg (27.0-33.0); Mean Corpuscular Volume 93.8 fL (80.0-98.0); Mean Platelet Volume 10.6 fL (9.4-12.3); Monocytes Absolute Auto 0.4 X10*3/uL (0.1-1.2); Monocytes Percent Auto 6.5 % (2-11); Neutrophils Absolute Auto 3.7 x10*3/uL (2.0-8.3); Neutrophils Percent Auto 61.1 % (45-73); Platelet Count 189 X10*3/uL (160-400); Red Blood Count 4.34 X10*6/uL (4.20-5.50); Red Cell Distribution Width 13.1 % (11.0-16.0)
[2022-03-23 12:36] LABS: Alanine Aminotransferase 20 U/L (0-31); Albumin Level 3.9 g/dL (3.5-5.0); Alkaline Phosphatase 86 U/L (39-117); Anion Gap 11 (12-20); Aspartate Amino Transferase 26 U/L (5-31); Bilirubin Total 0.4 mg/dL (0.0-1.0); Blood Urea Nitrogen 13 mg/dL (9-16); Calcium 9.1 mg/dL (8.4-10.2); Carbon Dioxide 32 mmol/L (22-29); Chloride 102 mmol/L (96-108); Cholesterol 231 mg/dL; Estimated Glomerular Filt Rate > 60; Glucose Fasting 103 mg/dL (60-99); HDL Cholesterol 45 mg/dL; LDL Cholesterol Calculated 167 mg/dl; Potassium 4.5 mmol/L (3.3-5.1); Sodium 140 mmol/L (135-145); Total Protein 7.2 g/dL (6.5-8.0); Triglycerides 98 mg/dL
[2022-03-23 12:44] LABS: Folate 6.6 ng/mL (> or = 4.0); TSH reflex Free T4 6.49 uIU/mL (0.32-4.0); Vitamin B12 519 pg/mL (200-900)
[2022-03-28 11:34] LABS: Vitamin B6 9.4 ng/mL (2.1-21.7)
== END 2022-03-23 07:57 | disposition home or self-care (01) ==
LOC: HO.HMGCLDS 07:56
PROVIDERS: PCP Nurse Practitioner Family; Visit Provider Nurse Practitioner Family
DX: G62.9 Polyneuropathy, unspecified (principal); D68.61 Antiphospholipid syndrome; I82.412 Acute embolism and thrombosis of left femoral vein
CPT/HCPCS: 36415; 80053; 80061; 81001; 82607; 82746; 84207; 84439; 84443; 85025; 85610

== ENCOUNTER 2022-04-02 08:05 | Outpatient (REF) | payer OTHER, SELFPAY ==
[2022-04-02 11:48] LABS: INTERNATIONAL NORM RATIO 2.2 (0.9-1.1); Prothrombin Time 26.6 SEC (10.0-13.1)
== END 2022-04-02 08:06 | disposition home or self-care (01) ==
LOC: HO.HMGCLDS 08:05
PROVIDERS: PCP Nurse Practitioner Family; Visit Provider Nurse Practitioner Family
DX: D68.61 Antiphospholipid syndrome (principal)
CPT/HCPCS: 36415; 85610

== ENCOUNTER 2022-04-09 08:14 | Outpatient (REF) | payer OTHER, SELFPAY ==
[2022-04-09 12:07] LABS: Prothrombin Time 23.7 SEC (10.0-13.1)
== END 2022-04-09 08:15 | disposition home or self-care (01) ==
LOC: HO.HMGCLDS 08:14
PROVIDERS: PCP Nurse Practitioner Family; Visit Provider Nurse Practitioner Family
DX: D68.61 Antiphospholipid syndrome (principal)
CPT/HCPCS: 36415; 85610

== ENCOUNTER 2022-04-19 08:31 | Outpatient (REF) | payer OTHER, SELFPAY ==
[2022-04-19 12:03] LABS: Appearance Urine Cloudy; Color Urine Yellow; Glucose Urine UA Negative (Negative); Leukocyte Esterase Urine Negative (Negative); Nitrite Urine Negative (Negative); UMIC TRIGGER UACC YES; Urine Blood Trace (Negative); Urine Ketones Negative (Negative); Urine Protein Trace mg/dL (Neg-Trace)
[2022-04-19 12:08] LABS: Bacteria Urine 1+ (None Seen); Hyaline Casts Urine 0-2 /LPF (0-2); WBC Urine 0-5 /HPF (0-5)
[2022-04-19 12:10] LABS: INTERNATIONAL NORM RATIO 2.2 (0.9-1.1); Prothrombin Time 26.5 SEC (10.0-13.1)
== END 2022-04-19 08:32 | disposition home or self-care (01) ==
LOC: HO.HMGCLDS 08:31
PROVIDERS: PCP Nurse Practitioner Family; Visit Provider Nurse Practitioner Family
DX: I82.412 Acute embolism and thrombosis of left femoral vein (principal); R82.90 Unspecified abnormal findings in urine
CPT/HCPCS: 36415; 81001; 81003; 85610

== ENCOUNTER 2022-05-10 08:16 | Outpatient (REF) | payer OTHER, SELFPAY ==
[2022-05-10 11:49] LABS: INTERNATIONAL NORM RATIO 1.1 (0.9-1.1); Prothrombin Time 12.9 SEC (10.0-13.1)
== END 2022-05-10 08:17 | disposition home or self-care (01) ==
LOC: HO.HMGCLDS 08:16
PROVIDERS: PCP Nurse Practitioner Family; Visit Provider Nurse Practitioner Family
DX: R76.0 Raised antibody titer (principal)
CPT/HCPCS: 36415; 85610

== ENCOUNTER 2022-05-21 09:29 | Outpatient (REF) | payer OTHER, SELFPAY ==
[2022-05-21 11:59] LABS: INTERNATIONAL NORM RATIO 1.3 (0.9-1.1); Prothrombin Time 15.1 SEC (10.0-13.1)
== END 2022-05-21 09:30 | disposition home or self-care (01) ==
LOC: HO.HMGCLR 09:29
PROVIDERS: PCP Nurse Practitioner Family; Visit Provider Nurse Practitioner Family
DX: R76.0 Raised antibody titer (principal)
CPT/HCPCS: 36415; 85610

== ENCOUNTER 2022-05-25 15:24 | Emergency (ER) | payer OTHER, SELFPAY ==
--- NOTE | ~2022-05-25 | US_ITS ---
EXAMINATION: US VENOUS ULTRASOUND WITH DOPPLER LOWER EXTREMITY, LEFT CLINICAL INFORMATION: History of lower extremity deep vein thrombosis. Pain and swelling. COMPARISON: 05/07/2021. TECHNIQUE: Ultrasound of the deep veins is performed from the hip to the calf with compression sonography and color and pulse Doppler assessment. Spectral analysis with color-flow imaging is performed. FINDINGS: The common femoral vein is compressible and exhibits a normal phasic waveform; this suggests that the iliac veins are widely patent above. Within the proximal thigh, the visualized profunda femoris vein is normal. The examined greater saphenous vein and saphenofemoral junction are normal. There is recanalized thrombus in the lumen of the superficial femoral vein with linear echogenicity remaining in the vein. This is seen to level the popliteal vein and represents improvement since 05/07/2021. There is no evidence of acute thrombus superimposed on the old recanalized thrombus. The calf veins are difficult to evaluate. The visible posterior tibial and peroneal veins are patent on color Doppler imaging. No Rizo's cyst. US/US venous duplex LE IMPRESSION: * No evidence of acute deep vein thrombosis in the left lower extremity. * There is old recanalized thrombus in the lumen of the femoral and popliteal veins. This represents interval improvement since 05/07/2021.
--- NOTE | 2022-05-25 15:35 | ED_ITS ---
HPI - General Adult General Chief complaint: General Medical Stated complaint: Blood clot L leg? sent by PCP Related Data Home Medications ?Medication ?Instructions ?Recorded ?Confirmed atorvastatin 20 mg tablet 20 mg PO DAILY 07/27/23 07/27/23 clopidogrel 75 mg tablet 75 mg PO DAILY 07/27/23 07/27/23 methadone 5 mg tablet 2.5 mg PO Q4H 07/27/23 07/27/23 Previous Rx's ?Medication ?Instructions ?Recorded omeprazole 40 mg capsule,delayed 40 mg PO DAILY 90 days #90 caps 10/11/21 release amlodipine 5 mg tablet 5 mg PO DAILY #90 tabs 04/30/23 lisinopril 20 mg tablet 20 mg PO DAILY #90 tabs 07/27/23 warfarin 5 mg tablet 7.5 mg (1.5 x 5 mg) PO DAILY #45 08/16/23 tabs levothyroxine 300 mcg tablet 300 mcg PO DAILY 30 days #30 tabs 08/19/23 Allergies Allergy/AdvReac Type Severity Reaction Status Date / Time No Known Allergies Allergy Verified 07/27/23 09:43 [facility] Past Medical History Medical History (Updated 08/25/23 @ 14:23 by ANGEL Samson) Heroin abuse STEMI (ST elevation myocardial infarction) Lupus anticoagulant positive DVT (deep venous thrombosis) Kidney stone Raynaud's disease without gangrene Hypothyroid Surgical History (Updated 07/31/23 @ 12:50 by MARGAUX Oh) History of heart artery stent Family History Family History Father Liver cancer Mother Hypertension Social History Social History Household Members: Spouse Housing: Apartment Do you presently have visiting nurse or other home services: No Alcohol intake: never Patient Tobacco Use Status: Current everyday Tobacco user Tobacco use type: Cigarette Cigarettes Per Day: 4 Years Smoked: 30 e-Cigarette/Vaping Use: Never Used Second Hand Smoke Exposure: No service: No Current occupational status: employed Cognitive needs: No Hearing needs: No Vision needs: No Physical Exam ED Vital Signs: BMI result Body Mass Index 30.1 Course Course Course Narrative: This is an RME: Additional HPI, ROS, PE not included below will be deferred to primary provider. 57-year-old female history of antiphospholipid syndrome presents with left-sided lower extremity pain, swelling, tenderness, was sent in by PCP John Aquino for rule out DVT. patient on Coumadin and not med compliant according to PCP. I did have a brief conversation with patient tell arrives ordering labs, ultrasound she will go out into the waiting room until room becomes available. Denies recent travel. PE- w/ 2+ pitting edema to LLE 1+ RLE Plan ultrasound basic labs. Medical Decision Making Lab Data 05/25/22 16:55 05/25/22 16:55 Labs: Lab Results 05/25/22 Range/Units 16:55 WBC 6.3 (4.8-10.8) X10*3/uL RBC 4.16 L (4.20-5.50) X10*6/uL Hgb 13.4 (12.0-16.0) g/dl Hct 37.6 (37.0-47.0) % MCV 90.4 (80.0-98.0) fL MCH 32.2 (27.0-33.0) pg MCHC 35.6 H (31.0-35.0) g/dl RDW 12.8 (11.0-16.0) % Plt Count 195 (160-400) X10*3/uL MPV 9.2 L (9.4-12.3) fL Immature Gran % (Auto) 0.6 H (0.0-0.4) % Neut % (Auto) 65.6 (45-73) % Lymph % (Auto) 25.0 (20-40) % [place] % (Auto) 6.5 (2-11) % Eos % (Auto) 1.7 (0-4) % Baso % (Auto) 0.6 (0-2) % Lymph # (Auto) 1.6 (1.2-4.9) X10*3/uL [place] # (Auto) 0.4 (0.1-1.2) X10*3/uL Eos # (Auto) 0.1 (0.0-0.4) X10*3/uL Baso # (Auto) 0.0 (0.0-0.2) X10*3/uL Abs Immat Gran (auto) 0.04 H (0.00-0.03) X10*3/uL Absolute Neuts (auto) 4.1 (2.0-8.3) x10*3/uL Absolute Nucleated RBC 0.000 (0.0-0.012) X10*3/uL Nucleated RBC % (auto) 0.0 (0.0-0.2) /100WBC PT 26.3 H (10.0-13.1) SEC INR 2.2 H (0.9-1.1) Sodium 140 (135-145) mmol/L Potassium 4.1 (3.3-5.1) mmol/L Chloride 103 (96-108) mmol/L Carbon Dioxide 27 (22-29) mmol/L Anion Gap 14 (12-20) BUN 13 (9-16) mg/dL Creatinine 0.68 (0.5-1.4) mg/dL Estim Creat Clear Calc 109.6 Estimated GFR > 60 Random Glucose 93 (60-115) mg/dL Calcium 9.1 (8.4-10.2) mg/dL Magnesium 1.8 (1.6-2.6) mg/dL Total Bilirubin 0.4 (0.0-1.0) mg/dL AST 28 (5-31) U/L ALT 28 (0-31) U/L Alkaline Phosphatase 94 (39-117) U/L Total Protein 7.2 (6.5-8.0) g/dL Albumin 3.8 (3.5-5.0) g/dL COVID-19 ([facility]) Negative (Negative) COVID-19 Clin Com See Note Discharge Plan Discharge Clinical Impression: Eloped from emergency department Patient Disposition: Elopement Prescriptions: No Action omeprazole 40 mg capsule,delayed release(DR/EC) 40 mg PO DAILY 90 Days Qty: 90 0RF amlodipine 5 mg tablet 5 mg PO DAILY Qty: 90 0RF Rx Instructions: Schedule next PCP appt for future refills warfarin 5 mg tablet 7.5 mg PO DAILY Qty: 45 1RF Rx Instructions: Dose varies according to INR and PCP instructions levothyroxine 300 mcg tablet 300 mcg PO DAILY 30 Days Qty: 30 1RF atorvastatin 20 mg tablet 20 mg PO DAILY clopidogrel 75 mg tablet 75 mg PO DAILY lisinopril 20 mg tablet 20 mg PO DAILY Qty: 90 0RF methadone 5 mg tablet 2.5 mg PO Q4H Patient Comments: dont know actual dose, pt verbalized being on methadone Interventions: ED Discharge Assessment Last Done: 05/25/22 22:18 Discharge Date/Time: 05/25/22 22:19 Print Language: Estonian
[2022-05-25 16:18] VITALS: BP 190/97; PULSE 78; RESP 18; TEMP 36.9; O2SAT 97; BMI 30.1
[2022-05-25 17:01] LABS: MANUAL DIFF FLAG NO
[2022-05-25 17:05] LABS: Basophils Percent Auto 0.6 % (0-2); Eosinophils Absolute Auto 0.1 X10*3/uL (0.0-0.4); Eosinophils Percent Auto 1.7 % (0-4); Hematocrit 37.6 % (37.0-47.0); Hemoglobin 13.4 g/dl (12.0-16.0); Imm Gran Abs Auto 0.04 X10*3/uL (0.00-0.03); Imm Gran Pct Auto 0.6 % (0.0-0.4); Lymphocytes Absolute Auto 1.6 X10*3/uL (1.2-4.9); Mean Corpuscular HGB Conc 35.6 g/dl (31.0-35.0); Mean Corpuscular Hemoglobin 32.2 pg (27.0-33.0); Mean Corpuscular Volume 90.4 fL (80.0-98.0); Mean Platelet Volume 9.2 fL (9.4-12.3); Monocytes Absolute Auto 0.4 X10*3/uL (0.1-1.2); Monocytes Percent Auto 6.5 % (2-11); Neutrophils Absolute Auto 4.1 x10*3/uL (2.0-8.3); Neutrophils Percent Auto 65.6 % (45-73); Platelet Count 195 X10*3/uL (160-400); Red Blood Count 4.16 X10*6/uL (4.20-5.50); Red Cell Distribution Width 12.8 % (11.0-16.0); White Blood Count 6.3 X10*3/uL (4.8-10.8)
[2022-05-25 17:14] LABS: INTERNATIONAL NORM RATIO 2.2 (0.9-1.1); Prothrombin Time 26.3 SEC (10.0-13.1)
[2022-05-25 17:19] LABS: Alanine Aminotransferase 28 U/L (0-31); Albumin Level 3.8 g/dL (3.5-5.0); Alkaline Phosphatase 94 U/L (39-117); Anion Gap 14 (12-20); Aspartate Amino Transferase 28 U/L (5-31); Bilirubin Total 0.4 mg/dL (0.0-1.0); Blood Urea Nitrogen 13 mg/dL (9-16); Calcium 9.1 mg/dL (8.4-10.2); Carbon Dioxide 27 mmol/L (22-29); Chloride 103 mmol/L (96-108); Creatinine Clr Calc Pharmacy 109.6; Estimated Glomerular Filt Rate > 60; Glucose Random 93 mg/dL (60-115); Magnesium 1.8 mg/dL (1.6-2.6); Potassium 4.1 mmol/L (3.3-5.1); Sodium 140 mmol/L (135-145); Total Protein 7.2 g/dL (6.5-8.0)
[2022-05-25 17:24] LABS: COVID-19 Test Negative (Negative); IDNOW Serial# 6674DD1D
== END 2022-05-25 22:19 | disposition left against medical advice (07) ==
PROVIDERS: Physician Assistant; Emergency Provider Emergency Medicine; PCP Nurse Practitioner Family
DX: M79.662 Pain in left lower leg (principal); R60.0 Localized edema; D68.61 Antiphospholipid syndrome; F17.210 Nicotine dependence, cigarettes, uncomplicated; Z86.718 Personal history of other venous thrombosis and embolism; Z91.148 Patient's other noncompliance with medication regimen for other reason; Z20.822 Contact with and (suspected) exposure to COVID-19
CPT/HCPCS: 80053; 83735; 85025; 85610; 87635; 93971; 99282; 99284

== ENCOUNTER 2022-06-15 06:24 | Outpatient (REF) | payer OTHER, SELFPAY ==
[2022-06-15 12:05] LABS: INTERNATIONAL NORM RATIO 3.1 (0.9-1.1); Prothrombin Time 36.9 SEC (10.0-13.1)
== END 2022-06-15 06:25 | disposition home or self-care (01) ==
LOC: HO.HMGCLDS 06:24
PROVIDERS: PCP Nurse Practitioner Family; Visit Provider Nurse Practitioner Family
DX: R76.0 Raised antibody titer (principal)
CPT/HCPCS: 36415; 85610

== ENCOUNTER 2022-07-13 06:46 | Outpatient (REF) | payer MEDICAID, SELFPAY ==
[2022-07-13 11:37] LABS: INTERNATIONAL NORM RATIO 1.5 (0.9-1.1); Prothrombin Time 17.9 SEC (10.0-13.1)
[2022-07-13 12:12] LABS: Alanine Aminotransferase 20 U/L (0-31); Albumin Level 3.6 g/dL (3.5-5.0); Alkaline Phosphatase 78 U/L (39-117); Anion Gap 11 (12-20); Aspartate Amino Transferase 24 U/L (5-31); Bilirubin Total 0.4 mg/dL (0.0-1.0); Blood Urea Nitrogen 14 mg/dL (9-16); Calcium 8.9 mg/dL (8.4-10.2); Carbon Dioxide 29 mmol/L (22-29); Chloride 105 mmol/L (96-108); Cholesterol 190 mg/dL; Estimated Glomerular Filt Rate > 60; Glucose Fasting 107 mg/dL (60-99); HDL Cholesterol 37 mg/dL; LDL Cholesterol Calculated 116 mg/dl; Potassium 4.3 mmol/L (3.3-5.1); Sodium 141 mmol/L (135-145); TSH reflex Free T4 4.21 uIU/mL (0.32-4.0); Triglycerides 186 mg/dL
[2022-07-13 12:42] LABS: Free T4 (Free Thyroxine) 1.12 ng/dL (0.71-1.85)
== END 2022-07-13 06:47 | disposition home or self-care (01) ==
LOC: HO.HMGCLDS 06:46
PROVIDERS: PCP Nurse Practitioner Family; Visit Provider Nurse Practitioner Family
DX: E03.9 Hypothyroidism, unspecified (principal); E78.5 Hyperlipidemia, unspecified; R76.0 Raised antibody titer
CPT/HCPCS: 36415; 80053; 80061; 84439; 84443; 85610

== ENCOUNTER 2022-08-06 06:12 | Outpatient (REF) | payer MEDICAID, SELFPAY ==
[2022-08-06 11:50] LABS: Prothrombin Time 69.2 SEC (10.0-13.1)
[2022-08-06 12:11] LABS: INTERNATIONAL NORM RATIO 5.6 (0.9-1.1)
== END 2022-08-06 06:13 | disposition home or self-care (01) ==
LOC: HO.HMGCLDS 06:12
PROVIDERS: PCP Nurse Practitioner Family; Visit Provider Nurse Practitioner Family
DX: R76.0 Raised antibody titer (principal)
CPT/HCPCS: 36415; 85610

== ENCOUNTER 2022-08-09 06:24 | Outpatient (REF) | payer MEDICAID, SELFPAY ==
[2022-08-09 11:24] LABS: INTERNATIONAL NORM RATIO 2.1 (0.9-1.1); Prothrombin Time 24.7 SEC (10.0-13.1)
== END 2022-08-09 06:25 | disposition home or self-care (01) ==
LOC: HO.HMGCLDS 06:24
PROVIDERS: PCP Nurse Practitioner Family; Visit Provider Nurse Practitioner Family
DX: R76.0 Raised antibody titer (principal)
CPT/HCPCS: 36415; 85610

== ENCOUNTER 2022-08-23 11:34 | Outpatient (REF) | payer MEDICAID, SELFPAY | END 2022-08-23 11:35 | disposition home or self-care (01) | LOC: HO.HMGCLDS 11:34 | PROVIDERS: PCP Nurse Practitioner Family; Visit Provider Nurse Practitioner Family | DX: R76.0 Raised antibody titer (principal) | CPT/HCPCS: 36415; 85610 ==

== ENCOUNTER 2023-07-27 09:24 | Outpatient (AMB) | payer OTHER, SELFPAY ==
--- NOTE | 2023-07-27 09:27 | A.OFFPC_ITS ---
Vital Signs 07/27/23 09:30 07/27/23 09:50 Weight 171 lb BP 152/100 H 148/100 H Blood Pressure Location Lt brachial Lt brachial Position Sitting Sitting Pulse 66 Pulse Source Pulse Oximeter Pulse Oximetry (%) 97 Oxygen Delivery Method Room Air Intake Visit Reasons: Blood clot in leg/ Discuss health concerns Intake Note: Patient here to discuss health concerns after recent heart attack Allergies No Known Allergies Allergy (Verified 07/27/23 09:43) Medication List - Last Reconciled 07/27/23 by [facility] amlodipine 5 mg PO DAILY atorvastatin 20 mg PO DAILY clopidogrel 75 mg PO DAILY levothyroxine 300 mcg PO DAILY 30 days lisinopril 20 mg PO DAILY methadone 2.5 mg PO Q4H omeprazole 40 mg PO DAILY 90 days warfarin 5 mg PO DAILY Tobacco use date assessed: 07/27/23 Dental Screening Dental Screen Date: 07/27/23 Did you have a dental visit in the last 12 months?: No Did you have a dental problem in the last 6 months where you did not have access to dental care?: No Was dental information given to patient?: No HPI Blood clot in leg/ Discuss health concerns HPI Details I have not seen this pt since May of 2022. She was unable to be reached for quite some time. Pt was seen in the ER on 06/07 c/o chest pain. EKG showed ST elevation in II, III, and aVF and ST depression in V1-V4. Troponin was 128 on admission. Pt underwent an emergent cath which showed proximal 70% stenosis and distal 100% acute thrombotic occlusion in the RCA, s/p PCI TONIO x2 to RCA with POBA to RPDA ostium. Pt had an echo which showed mildly reduced LV systolic function, EF 40-45%. During her stay pt had a visitor, after they left pt's O2 sat dropped to 80s, BP dropped to 70s systolic, respiratory rate slowed to 8-10. She was given 1L fluid bolus and narcan which improved vitals and symptoms. Pt has a substance abuse problem. Tox screen was positive for cocaine, opiates, and fentanyl. Addiction medicine was consulted, placed on methadone. Pt was to continue aspirin, plavix, and warfarin for 1 month, then plavix and warfarin. Pt had not been taking her warfarin regularly. She has not had her INR checked recently, pt will have this drawn today. Pt's beta kyler was d/c due to cocaine use. Pt is following up with [facility] cardiology, will track down last note. Pt's blood pressure is elevated today. Will increase lisinopril from 10mg to 20mg. Will have pt follow up with nurse navigator for BP checks. Denies chest pain, shortness of breath, headache, dizziness, and blurred vision. Pt reports being off her thyroid med for approximately 1 week, will send. [facility] Medical History (Updated 07/27/23 @ 10:16 by MARGAUX Oh) Heroin abuse STEMI (ST elevation myocardial infarction) Lupus anticoagulant positive DVT (deep venous thrombosis) Kidney stone Raynaud's disease without gangrene Hypothyroid Family History Father Liver cancer Mother Hypertension Social History Household Members: Spouse Housing: Apartment Do you presently have visiting nurse or other home services: No Alcohol intake: never Patient Tobacco Use Status: Current everyday Tobacco user Tobacco use type: Cigarette Cigarettes Per Day: 4 Years Smoked: 30 e-Cigarette/Vaping Use: Never Used Second Hand Smoke Exposure: No service: No Current occupational status: employed Cognitive needs: No Hearing needs: No Vision needs: No Questionnaire PHQ-9 Over the last 2 weeks, how often have you been bothered by any of the following problems? 1. Little interest or pleasure in doing things: several days 2. Feeling down, depressed, or hopeless: not at all 3. Trouble falling or staying asleep, or sleeping too much: several days 4. Feeling tired or having little energy: several days 5. Poor appetite or overeating: several days 6. Feeling bad about yourself - or that you are a failure or have let yourself or your family down: several days 7. Trouble concentrating on things, such as reading the newspaper or watching television: not at all 8. Moving or speaking so slowly that other people could have noticed. Or the opposite - being so fidgety or restless that you have been moving around a lot more than usual: not at all 9. Thoughts that you would be better off or of hurting yourself in some way: not at all Total score: 5 Depression Screening Interpretation: Negative Depression Screening Done: Yes 87340 - PHQ-9 Billing: Yes Source: Developed by Drs. German Garcia, Brandi Lopez, Gary Cochran and colleagues, with an educational duc from [employer]. Thrive Questionnaire Date Thrive assessed: 07/27/23 I am a: Patient What is your living situation today?: I have a steady place to live Within the past 12 months, did the food you bought not last and you didn't have the money to get more?: Never true Within the past 12 months, did you worry whether your food would run out before you got money to buy more?: Never true Do you have trouble paying for medicines?: Yes Do you have trouble getting transportation to medical appointments?: Yes Do you have trouble paying your heating and electricity bill?: Yes Do you have trouble taking care of your child, family member or friend?: No Do you have trouble with day-to-day activities such as bathing, preparing meals, shopping, managing finances, etc.?: No Are you currently unemployed and looking for a job?: No Are you interested in more education?: No Currently or been in a relationship where the following occur: I choose not to answer this question THRIVE Score: 2 ANA-7 AMB Questionnaire ANA-7 Date ANA - 7 assessed: 07/27/23 Feeling nervous, anxious, or on edge: 2 = More than half the days Not being able to stop or control worryin = More than half the days Worrying too much about different things: 2 = More than half the days Trouble relaxin = Several days Being so restless that it is hard to sit still: 0 = Not at all Becoming easily annoyed or irritable: 1 = Several days Feeling afraid as if something awful might happen: 1 = Several days Total ANA-7 score (0-4 normal; 5-9 mild; 10-14 moderate; 15-21 severe): 9 Source: Developed by Drs. Gemran Garica, Brandi Lopez, Gary Cochran and colleagues, with an educational duc from [employer]. ANA-7 Assessment Billing ANA-7 Assessment Tool: ANA-7 Assessment 75310 Review of Systems Const Reports as per HPI Physical exam (Primary Care) Vital Signs: Last Vital Signs Pulse 66 07/27/23 09:30 BP 148/100 H 07/27/23 09:50 Pulse Ox 97 07/27/23 09:30 Oxygen Delivery Method Room Air 07/27/23 09:30 Tobacco/Smoking Status: Tobacco use Status Tobacco use date assessed 07/27/23 07/27/23 09:35 Patient Tobacco Use Status Current everyday Tobacco 07/27/23 09:29 Tobacco use type Cigarette 07/27/23 09:29 e-Cigarette/Vaping Use Never Used 07/27/23 09:29 Depression Screening Interpretation: Negative Thrive Assessment: Date of Thrive Assessment Date Thrive assessed 05/25/22 07/27/23 09:29 Currently or been in a relationship where the following occur: I choose not to answer this question Const General: cooperative Orientation/consciousness: patient oriented x3 Resp Other: lungs fairly clear, slightly diminished Effort & Inspection: normal respiratory effort Cardio Rate: regular rate Rhythm: regular rhythm Heart sounds: S1 normal heart sound present and S2 normal heart sound present Neuro General: patient oriented x3 Extrem Other: LLE slightly larger in circumference than right Psych Appearance: grossly normal Mental Status: mental status grossly normal Speech and movement: Normal speech and movement present Affect: normal affect Attitude: cooperative Thought process: Normal thought process present Thought content: Normal thought content present Insight: Good insight present (Psych) Judgement: Good judgement present (Psych) Assessment and Plan Assessment & Plan (1) Lupus anticoagulant positive: Code(s): R76.0 - Raised antibody titer Plan: Labs ordered (2) STEMI (ST elevation myocardial infarction): Code(s): I21.3 - ST elevation (STEMI) myocardial infarction of unspecified site Plan: Labs ordered, continue to follow up with cardiology (3) HTN (hypertension): Code(s): I10 - Essential (primary) hypertension Plan: Increasing lisinopril from 10mg to 20mg, referred to NN for BP checks (4) Screening for cervical cancer: Code(s): Z12.4 - Encounter for screening for malignant neoplasm of cervix (5) Heroin abuse: Code(s): F11.10 - Opioid abuse, uncomplicated Plan: on methadone Plan The patient agreed to the use of a certified medical aide for this encounter. Scribed for BRI FlorentinoP- by Nazanin Augustine, certified medical aide, on 07/27/2023 at 09:40 EST. Orders: Orders Comprehensive [place]. Panel Fast Today I21.3 - ST elevation (STEMI) myocardial infarction of unspecified site, R76.0 - Raised antibody titer TSH reflex Free T4 Today I21.3 - ST elevation (STEMI) myocardial infarction of unspecified site, R76.0 - Raised antibody titer Lipid Panel Today I21.3 - ST elevation (STEMI) myocardial infarction of unspecified site, R76.0 - Raised antibody titer Prothrombin Time INR Today I21.3 - ST elevation (STEMI) myocardial infarction of unspecified site, R76.0 - Raised antibody titer MM screening mammo BI Today Z12.31 - Encounter for screening mammogram for malignant neoplasm of breast Complete Blood Count Auto Diff Today I21.3 - ST elevation (STEMI) myocardial infarction of unspecified site, R76.0 - Raised antibody titer UA CC w/rflx Micro + Cult Today I21.3 - ST elevation (STEMI) myocardial infarction of unspecified site, R76.0 - Raised antibody titer Referrals UNDERTAKER HELPER Referral Z12.4 - Encounter for screening for malignant neoplasm of cervix Nurse Navigator Referral I10 - Essential (primary) hypertension Cologuard Test Z12.11 - Encounter for screening for malignant neoplasm of colon, Z12.12 - Encounter for screening for malignant neoplasm of rectum Medications: New lisinopril 20 mg PO DAILY 90 tabs 0RF Refilled levothyroxine 300 mcg PO DAILY 30 days 30 tabs 1RF Coding Level of Care Code Est Pt Level 4 (93411) Diagnoses Lupus anticoagulant positive R76.0 STEMI (ST elevation myocardial infarction) I21.3 HTN (hypertension) I10 Screening for cervical cancer Z12.4 Heroin abuse F11.10 Additional Codes ANA-7 Assessment Billing - ANA-7 Assessment Tool: ANA-7 Assessment 61640 ([id number])
[2023-07-27 09:30] VITALS: BP 152/100; PULSE 66; O2SAT 97
[2023-07-27 09:50] VITALS: BP 148/100
== END 2023-07-27 12:01 | disposition home or self-care (01) ==
PROVIDERS: PCP Nurse Practitioner Family; Visit Provider Nurse Practitioner Family
DX: I25.2 Old myocardial infarction (principal); F11.10 Opioid abuse, uncomplicated; R76.0 Raised antibody titer; I10 Essential (primary) hypertension
CPT/HCPCS: 99214

== ENCOUNTER 2023-07-27 10:09 | Outpatient (REF) | payer OTHER, SELFPAY ==
[2023-07-27 13:43] LABS: Appearance Urine Clear; Color Urine Dark Yellow; Glucose Urine UA Negative (Negative); Leukocyte Esterase Urine Negative (Negative); Nitrite Urine Negative (Negative); PH 5.5 (5.0-9.0); Specific Gravity - Urine 1.025 (1.005-1.025); Urine Blood Negative (Negative); Urine Ketones Trace mg/dL (Negative); Urine Protein Negative (Neg-Trace)
[2023-07-27 14:04] LABS: MANUAL DIFF FLAG NO
[2023-07-27 14:12] LABS: Basophils Percent Auto 0.6 % (0-2); Eosinophils Absolute Auto 0.2 X10*3/uL (0.0-0.4); Eosinophils Percent Auto 3.2 % (0-4); Hematocrit 36.3 % (37.0-47.0); Hemoglobin 12.1 g/dl (12.0-16.0); Imm Gran Abs Auto 0.02 X10*3/uL (0.00-0.03); Imm Gran Pct Auto 0.4 % (0.0-0.4); Lymphocytes Absolute Auto 1.2 X10*3/uL (1.2-4.9); Lymphocytes Percent Auto 23.4 % (20-40); Mean Corpuscular HGB Conc 33.3 g/dl (31.0-35.0); Mean Corpuscular Hemoglobin 32.8 pg (27.0-33.0); Mean Corpuscular Volume 98.4 fL (80.0-98.0); Monocytes Absolute Auto 0.3 X10*3/uL (0.1-1.2); Monocytes Percent Auto 6.3 % (2-11); Neutrophils Absolute Auto 3.5 x10*3/uL (2.0-8.3); Neutrophils Percent Auto 66.1 % (45-73); Red Blood Count 3.69 X10*6/uL (4.20-5.50); Red Cell Distribution Width 13.3 % (11.0-16.0); White Blood Count 5.3 X10*3/uL (4.8-10.8)
[2023-07-27 14:20] LABS: INTERNATIONAL NORM RATIO 1.4 (0.9-1.1); Prothrombin Time 17.1 SEC (11.1-13.3)
[2023-07-27 14:35] LABS: Alanine Aminotransferase 9 U/L (0-31); Albumin Level 3.9 g/dL (3.5-5.0); Alkaline Phosphatase 56 U/L (39-117); Anion Gap 11 (12-20); Aspartate Amino Transferase 27 U/L (5-31); Bilirubin Total 0.4 mg/dL (0.0-1.0); Blood Urea Nitrogen 18 mg/dL (9-16); Calcium 9.2 mg/dL (8.4-10.2); Carbon Dioxide 32 mmol/L (22-29); Chloride 102 mmol/L (96-108); Cholesterol 197 mg/dL (<200); Estimated Glomerular Filt Rate > 60; Glucose Fasting 81 mg/dL (60-99); HDL Cholesterol 56 mg/dL (>40); LDL Cholesterol Calculated 124 mg/dL (<100); Potassium 4.1 mmol/L (3.3-5.1); Sodium 141 mmol/L (135-145); Total Protein 7.3 g/dL (6.5-8.0); Triglycerides 88 mg/dL (<150)
[2023-07-27 14:46] LABS: Mean Platelet Volume 10.4 fL (9.4-12.3); Platelet Count 133 X10*3/uL (160-400)
[2023-07-27 14:54] LABS: TSH reflex Free T4 58.93 uIU/mL (0.32-4.0)
[2023-07-27 15:49] LABS: Free T4 (Free Thyroxine) < 0.42 ng/dL (0.71-1.85)
== END 2023-07-27 10:10 | disposition home or self-care (01) ==
LOC: HO.HMGCLDS 10:09
PROVIDERS: PCP Nurse Practitioner Family; Visit Provider Nurse Practitioner Family
DX: I21.3 ST elevation (STEMI) myocardial infarction of unspecified site (principal); R76.0 Raised antibody titer
CPT/HCPCS: 36415; 80053; 80061; 81003; 84439; 84443; 85025; 85610

== ENCOUNTER 2023-08-08 06:27 | Outpatient (REF) | payer OTHER, SELFPAY ==
[2023-08-08 10:42] LABS: INTERNATIONAL NORM RATIO 1.6 (0.9-1.1); Prothrombin Time 19.1 SEC (11.1-13.3)
== END 2023-08-08 06:28 | disposition home or self-care (01) ==
LOC: HO.HMGCLDS 06:27
PROVIDERS: PCP Nurse Practitioner Family; Visit Provider Nurse Practitioner Family
DX: R76.0 Raised antibody titer (principal)
CPT/HCPCS: 36415; 85610

== ENCOUNTER 2023-08-15 06:28 | Outpatient (REF) | payer OTHER, SELFPAY ==
[2023-08-15 12:22] LABS: INTERNATIONAL NORM RATIO 2.8 (0.9-1.1); Prothrombin Time 34.2 SEC (11.1-13.3)
== END 2023-08-15 06:29 | disposition home or self-care (01) ==
LOC: HO.HMGCLR 06:28
PROVIDERS: PCP Nurse Practitioner Family; Visit Provider Nurse Practitioner Family
DX: R76.0 Raised antibody titer (principal)
CPT/HCPCS: 36415; 85610

== ENCOUNTER 2023-08-19 06:35 | Outpatient (REF) | payer OTHER, SELFPAY | END 2023-08-19 06:36 | disposition home or self-care (01) | LOC: HO.HMGCLR 06:35 | PROVIDERS: PCP Nurse Practitioner Family; Visit Provider Nurse Practitioner Family | DX: R76.0 Raised antibody titer (principal) | CPT/HCPCS: 36415; 85610 ==

== ENCOUNTER 2023-08-23 06:22 | Outpatient (REF) | payer OTHER, SELFPAY ==
[2023-08-23 11:20] LABS: INTERNATIONAL NORM RATIO 1.8 (0.9-1.1); Prothrombin Time 22.3 SEC (11.1-13.3)
== END 2023-08-23 06:23 | disposition home or self-care (01) ==
LOC: HO.HMGCLDS 06:22
PROVIDERS: PCP Nurse Practitioner Family; Visit Provider Nurse Practitioner Family
DX: R76.0 Raised antibody titer (principal)
CPT/HCPCS: 36415; 85610

== ENCOUNTER 2023-09-02 06:17 | Outpatient (REF) | payer OTHER, SELFPAY ==
[2023-09-02 10:41] LABS: Prothrombin Time 71.9 SEC (11.1-13.3)
[2023-09-02 10:52] LABS: INTERNATIONAL NORM RATIO 5.9 (0.9-1.1)
== END 2023-09-02 06:18 | disposition home or self-care (01) ==
LOC: HO.HMGCLR 06:17
PROVIDERS: PCP Nurse Practitioner Family; Visit Provider Nurse Practitioner Family
DX: R76.0 Raised antibody titer (principal)
CPT/HCPCS: 36415; 85610

== ENCOUNTER 2023-09-05 06:12 | Outpatient (REF) | payer OTHER, SELFPAY ==
[2023-09-05 10:16] LABS: INTERNATIONAL NORM RATIO 2.1 (0.9-1.1); Prothrombin Time 25.2 SEC (11.1-13.3)
== END 2023-09-05 06:13 | disposition home or self-care (01) ==
LOC: HO.HMGCLR 06:12
PROVIDERS: PCP Nurse Practitioner Family; Visit Provider Nurse Practitioner Family
DX: R76.0 Raised antibody titer (principal)
CPT/HCPCS: 36415; 85610

== ENCOUNTER 2023-09-12 06:20 | Outpatient (REF) | payer OTHER, SELFPAY ==
[2023-09-12 10:22] LABS: Prothrombin Time 24.6 SEC (11.1-13.3)
== END 2023-09-12 06:21 | disposition home or self-care (01) ==
LOC: HO.HMGCLR 06:20
PROVIDERS: PCP Nurse Practitioner Family; Visit Provider Nurse Practitioner Family
DX: R76.0 Raised antibody titer (principal)
CPT/HCPCS: 36415; 85610

== ENCOUNTER 2023-09-26 06:56 | Outpatient (REF) | payer OTHER, SELFPAY ==
[2023-09-26 10:16] LABS: INTERNATIONAL NORM RATIO 3.4 (0.9-1.1); Prothrombin Time 41.6 SEC (11.1-13.3)
== END 2023-09-26 06:57 | disposition home or self-care (01) ==
LOC: HO.HMGCLR 06:56
PROVIDERS: PCP Nurse Practitioner Family; Visit Provider Nurse Practitioner Family
DX: R76.0 Raised antibody titer (principal)
CPT/HCPCS: 36415; 85610

== ENCOUNTER 2023-10-07 06:45 | Outpatient (REF) | payer OTHER, SELFPAY ==
[2023-10-07 10:14] LABS: INTERNATIONAL NORM RATIO 1.8 (0.9-1.1); Prothrombin Time 22.3 SEC (11.1-13.3)
[2023-10-07 10:53] LABS: TSH reflex Free T4 0.14 uIU/mL (0.32-4.0)
[2023-10-07 12:43] LABS: Free T4 (Free Thyroxine) 1.44 ng/dL (0.71-1.85)
== END 2023-10-07 06:46 | disposition home or self-care (01) ==
LOC: HO.HMGCLR 06:45
PROVIDERS: PCP Nurse Practitioner Family; Visit Provider Nurse Practitioner Family
DX: R76.0 Raised antibody titer (principal); E03.9 Hypothyroidism, unspecified
CPT/HCPCS: 36415; 84439; 84443; 85610

== ENCOUNTER 2023-10-14 07:31 | Outpatient (REF) | payer OTHER, SELFPAY ==
[2023-10-14 10:32] LABS: INTERNATIONAL NORM RATIO 2.7 (0.9-1.1); Prothrombin Time 33.4 SEC (11.1-13.3)
[2023-10-14 11:00] LABS: TSH reflex Free T4 0.24 uIU/mL (0.32-4.0)
== END 2023-10-14 07:32 | disposition home or self-care (01) ==
LOC: HO.HMGCLR 07:31
PROVIDERS: PCP Nurse Practitioner Family; Visit Provider Nurse Practitioner Family
DX: E03.9 Hypothyroidism, unspecified (principal)
CPT/HCPCS: 36415; 84439; 84443; 85610

== ENCOUNTER 2023-10-31 06:41 | Outpatient (REF) | payer OTHER, SELFPAY ==
[2023-10-31 10:28] LABS: INTERNATIONAL NORM RATIO 1.8 (0.9-1.1); Prothrombin Time 21.8 SEC (11.1-13.3)
== END 2023-10-31 06:42 | disposition home or self-care (01) ==
LOC: HO.HMGCLDS 06:41
PROVIDERS: PCP Nurse Practitioner Family; Visit Provider Nurse Practitioner Family
DX: E03.9 Hypothyroidism, unspecified (principal); Z79.01 Long term (current) use of anticoagulants
CPT/HCPCS: 36415; 85610

== ENCOUNTER 2023-11-29 06:25 | Outpatient (REF) | payer OTHER, SELFPAY ==
[2023-11-29 10:13] LABS: INTERNATIONAL NORM RATIO 1.8 (0.9-1.1); Prothrombin Time 20.6 SEC (10.9-12.4)
== END 2023-11-29 06:26 | disposition home or self-care (01) ==
LOC: HO.HMGCLR 06:25
PROVIDERS: PCP Nurse Practitioner Family; Visit Provider Nurse Practitioner Family
DX: Z51.81 Encounter for therapeutic drug level monitoring (principal); Z79.01 Long term (current) use of anticoagulants; E03.9 Hypothyroidism, unspecified
CPT/HCPCS: 36415; 85610

== ENCOUNTER 2023-12-22 14:22 | Outpatient (REF) | payer OTHER, SELFPAY ==
[2023-12-22 16:52] LABS: INTERNATIONAL NORM RATIO 1.4 (0.9-1.1); Prothrombin Time 16.7 SEC (10.9-12.4)
== END 2023-12-22 14:23 | disposition home or self-care (01) ==
LOC: HO.HMGCLDS 14:22
PROVIDERS: PCP Nurse Practitioner Family; Visit Provider Nurse Practitioner Family
DX: E03.9 Hypothyroidism, unspecified (principal); Z79.01 Long term (current) use of anticoagulants
CPT/HCPCS: 36415; 84439; 84443; 85610

== ENCOUNTER 2024-01-12 07:26 | Outpatient (REF) | payer OTHER, SELFPAY ==
[2024-01-12 10:07] LABS: Prothrombin Time 23.3 SEC (10.9-12.4)
== END 2024-01-12 07:27 | disposition home or self-care (01) ==
LOC: HO.HMGCLDS 07:26
PROVIDERS: PCP Nurse Practitioner Family; Visit Provider Nurse Practitioner Family
DX: D68.61 Antiphospholipid syndrome (principal); R76.0 Raised antibody titer; M79.89 Other specified soft tissue disorders; K21.9 Gastro-esophageal reflux disease without esophagitis; I10 Essential (primary) hypertension; F17.210 Nicotine dependence, cigarettes, uncomplicated; E03.9 Hypothyroidism, unspecified; Z79.01 Long term (current) use of anticoagulants
CPT/HCPCS: 36415; 85610; 96127; 99212

== ENCOUNTER 2024-01-12 07:40 | Outpatient (AMB) | payer OTHER, SELFPAY ==
--- NOTE | 2024-01-12 07:46 | A.OFFPC_ITS ---
Vital Signs 01/12/24 07:47 Height 5 ft 7 in Weight 144 lb BMI 22.6 BP 148/100 H Blood Pressure Location Lt brachial Position Sitting Pulse 68 Pulse Source Pulse Oximeter Pulse Oximetry (%) 96 Intake Visit Reasons: Lab Follow Up, Hypothyroidism, Hx of DVT Intake Note: pt is here for f/up Pastry Baker Required: No Accompanied by: Self / Same As Patient Allergies No Known Allergies Allergy (Verified 01/12/24 08:30) Medication List - Last Reconciled 01/12/24 by MAX Oh- atorvastatin 20 mg PO DAILY clopidogrel 75 mg PO DAILY levothyroxine 300 mcg PO DAILY 30 days lisinopril 20 mg PO DAILY omeprazole 40 mg PO DAILY 90 days warfarin 7.5 mg (1.5 x 5 mg) PO DAILY Tobacco use date assessed: 07/27/23 Dental Screening Dental Screen Date: 07/27/23 HPI Lab Follow Up, Hypothyroidism, Hx of DVT HPI Details History of Present Illness pt is here for a follow up. She does take coumadin, she does not always get her INR when she should, or answer calls for doseage changes. Reinforced importance and dangers of not following specific instructions when it comes to coumadin (dosing, INR, etc). Pt does see cardiology, missing notes currently from latest visit, Amlodipine was apparently stopped by them. I will increase her lisinopril. NN in room today as well, reporting she will help watch her BP values, report to me. GERD: was on omeprazole, will restart this. Pt denies any CP, SOB, N/V, dizziness, blurred vision. 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 - Tobacco Use: Began smoking at age 17, currently reduced to three cigarettes a day, though mostly a pack a day for multiple years. - Substance Use: Reports cessation of me thadone use and has not been using any other substances. 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 - Physical Activity: Restricted by work commitments, noting occasional loneliness and desire to be active in work. Review of Systems - Cardiovascular: Denies chest pain; rep orts palpitations. - Respiratory: Denies recent respiratory issues. - Gastrointestinal: Reports increased GE RD symptoms. - Musculoskeletal: Reports consistent le ft lower limb swelling. - Neurological: Denies dizziness or marleen ting. - Genitourinary: No recent gynecologic e xams noted. Physical Exam skinny statue -lungs-clear/dim bilat - Cardiovascular- Normal heart sounds; s ystolic murmur. - Lower Extremity-swelling of the left l ower limb noted, no pain with palpation. - General- Left pelvic region exhibits t enderness upon palpation. psych: engaging in conversation, a+ox3 Results - Echocardiogram: Left ventricular eject ion fraction at 65%, considered within normal limits. - To be performed: Repeat venous doppler ultrasound on the left lower extremity. Plan - Antiphospholipid Syndrome with DVT: Co ntinue management with Coumadin, ensuring close monitoring of INR levels. Consider Lovenox if Doppler ultrasound indicates need. - Swelling of Left Lower Limb: Proceed w ith a venous doppler ultrasound to assess for any ongoing thrombosis. - GERD: Consider potential for increased acid reflux; recommend monitoring sy mptoms. - Tobacco Use: Advise on the benefits of smoking cessation and suggest annual low-dose CT scan due to history of smoking. - Pelvic Discomfort: Plan for referral a nd ultrasound for further evaluation. Patient was informed and verbally consented to the use of an ambient scribe for clinic note documentation during this visit. Discussion Notes I discussed with the patient the importance of maintaining her current Coumadin therapy, given her history of antiphospholipid syndrome with chronic DVT. We reviewed the risks associated with poor INR control and the benefits of regular monitoring. I explained the possible potential need for additional treatment with Lovenox based on ultrasound findings. We reviewed her GERD symptoms, considering adjustments to her current management plan, while also highlighting the importance of consistent thyroid medication usage. I addressed concerns regarding tobacco use, discussing the option of annual low-dose CT scans for lung health monitoring. The need for further evaluation of pelvic discomfort was articulated, with the potential use of pelvic ultrasounds recommended. Cologuard was ordered previously, never done, will resubmit this and refer to gastro for possible colonoscopy and endo (esophagitis). 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 Patient Instructions - Continue with current prescribed Couma din regimen and attend regular INR monitoring appointments. - Follow up with cardiology and hematolo gy as needed. - Monitor GERD symptoms and report any i ncrease in discomfort. - Schedule and attend the venous doppler ultrasound of the left leg. - Consider smoking cessation programs an d arrange for a low-dose CT scan. - Seek immediate care if experiencing in creased symptoms of chest pain or any significant changes in the health condition. [facility] Medical History Heroin abuse STEMI (ST elevation myocardial infarction) Lupus anticoagulant positive DVT (deep venous thrombosis) Kidney stone Raynaud's disease without gangrene Hypothyroid Surgical History History of heart artery stent Family History Father Liver cancer Mother Hypertension Social History Household Members: Spouse Housing: Apartment Do you presently have visiting nurse or other home services: No Alcohol intake: never Patient Tobacco Use Status: Current everyday Tobacco user Tobacco use type: Cigarette Cigarettes Per Day: 4 Years Smoked: 30 e-Cigarette/Vaping Use: Never Used Second Hand Smoke Exposure: No service: No Current occupational status: employed Cognitive needs: No Hearing needs: No Vision needs: No Questionnaire PHQ-9 Over the last 2 weeks, how often have you been bothered by any of the following problems? 1. Little interest or pleasure in doing things: several days 2. Feeling down, depressed, or hopeless: several days 3. Trouble falling or staying asleep, or sleeping too much: not at all 4. Feeling tired or having little energy: several days 5. Poor appetite or overeating: several days 6. Feeling bad about yourself - or that you are a failure or have let yourself or your family down: not at all 7. Trouble concentrating on things, such as reading the newspaper or watching television: not at all 8. Moving or speaking so slowly that other people could have noticed. Or the opposite - being so fidgety or restless that you have been moving around a lot more than usual: several days 9. Thoughts that you would be better off or of hurting yourself in some way: not at all Total score: 5 Depression Screening Interpretation: Negative Depression Screening Done: Yes 55613 - PHQ-9 Billing: Yes Source: Developed by Drs. German L. Jose, Gary Tim and colleagues, with an educational duc from [employer]. Thrive Questionnaire Date Thrive assessed: 01/12/24 I am a: Patient What is your living situation today?: I have a steady place to live Within the past 12 months, did the food you bought not last and you didn't have the money to get more?: Never true Within the past 12 months, did you worry whether your food would run out before you got money to buy more?: Never true Do you have trouble paying for medicines?: Yes Do you have trouble getting transportation to medical appointments?: Yes Do you have trouble paying your heating and electricity bill?: Yes Do you have trouble taking care of your child, family member or friend?: No Do you have trouble with day-to-day activities such as bathing, preparing meals, shopping, managing finances, etc.?: No Are you currently unemployed and looking for a job?: No Are you interested in more education?: No Please select the resources that you would like help with: None Currently or been in a relationship where the following occur: I choose not to answer THRIVE Score: 2 AUDIT C Alcohol Use Questionnaire (AUDIT-C) 1. How often do you have a drink containing alcohol?: Never 3. How often do you have six or more drinks on one occasion?: Never Total Score: 0 Score Reviewed/Action Taken: Yes ANA-7 AMB Questionnaire ANA-7 Date ANA - 7 assessed: 01/12/24 Feeling nervous, anxious, or on edge: 1 = Several days Not being able to stop or control worryin = Several days Worrying too much about different things: 1 = Several days Trouble relaxin = Several days Being so restless that it is hard to sit still: 0 = Not at all Becoming easily annoyed or irritable: 1 = Several days Feeling afraid as if something awful might happen: 0 = Not at all Total ANA-7 score (0-4 normal; 5-9 mild; 10-14 moderate; 15-21 severe): 5 Source: Developed by Drs. German Garcia, Gary Tim and colleagues, with an educational duc from [employer]. ANA-7 Assessment Billing ANA-7 Assessment Tool: ANA-7 Assessment 48947 Physical exam (Primary Care) Vital Signs: Last Vital Signs Pulse 68 01/12/24 07:47 BP 148/100 H 01/12/24 07:47 Pulse Ox 96 01/12/24 07:47 BMI result Body Mass Index 22.6 Tobacco/Smoking Status: Tobacco use Status Tobacco use date assessed 07/27/23 01/12/24 07:46 Patient Tobacco Use Status Current everyday Tobacco 01/12/24 07:46 Tobacco use type Cigarette 01/12/24 07:46 e-Cigarette/Vaping Use Never Used 01/12/24 07:46 PHQ-9: PHQ-9 Score PHQ-9: Total score 5 01/12/24 11:57 Depression Screening Interpretation: Negative Thrive Assessment: Date of Thrive Assessment Date Thrive assessed 01/12/24 01/12/24 08:03 Currently or been in a relationship where the following occur: I choose not to answer Coding Level of Care Code Est Pt Level 3 (21035) Diagnoses Antiphospholipid antibody syndrome D68.61 Lupus anticoagulant positive R76.0 Swelling of left lower extremity M79.89 Smoker F17.200 Screening for colon cancer Z12.11 GERD (gastroesophageal reflux disease) K21.9 HTN (hypertension) I10 Additional Codes ANA-7 Assessment Billing - ANA-7 Assessment Tool: ANA-7 Assessment 24134 ([id number]) PHQ-9 - 47333 - PHQ-9 Billing: Yes ([id number]) Assessment & Plan Assessment & Plan (1) Antiphospholipid antibody syndrome: Code(s): D68.61 - Antiphospholipid syndrome Category: Medical (2) Lupus anticoagulant positive: Code(s): R76.0 - Raised antibody titer Category: Medical (3) Swelling of left lower extremity: Code(s): M79.89 - Other specified soft tissue disorders Category: Medical (4) Smoker: Code(s): F17.200 - Nicotine dependence, unspecified, uncomplicated Category: Social Hx (5) Screening for colon cancer: Code(s): Z12.11 - Encounter for screening for malignant neoplasm of colon Category: Medical (6) GERD (gastroesophageal reflux disease): Code(s): K21.9 - Gastro-esophageal reflux disease without esophagitis Category: Medical (7) HTN (hypertension): Code(s): I10 - Essential (primary) hypertension Category: Medical Plan . Orders: Orders US venous duplex LE LT Today D68.61 - Antiphospholipid syndrome, M79.89 - Other specified soft tissue disorders, R76.0 - Raised antibody titer US OB pelvic and transvaginal Today R10.2 - Pelvic and perineal pain UA CC w/rflx Micro + Cult Today I10 - Essential (primary) hypertension Complete Blood Count Auto Diff Today I10 - Essential (primary) hypertension Comprehensive [place]. Panel Fast Today I10 - Essential (primary) hypertension TSH reflex Free T4 Today I10 - Essential (primary) hypertension Lipid Panel Today I10 - Essential (primary) hypertension Referrals Lung Cancer Screening Referral F17.200 - Nicotine dependence, unspecified, uncomplicated Gastroenterology Referral K21.9 - Gastro-esophageal reflux disease without esophagitis, Z12.11 - Encounter for screening for malignant neoplasm of colon Medications: Changed From lisinopril 20 mg PO DAILY 90 tabs 0RF To lisinopril 40 mg PO DAILY 90 tabs 0RF Refilled omeprazole 40 mg PO DAILY 90 caps 0RF 90 days
[2024-01-12 07:47] VITALS: BP 148/100; PULSE 68; O2SAT 96; BMI 22.6
== END 2024-01-12 09:08 | disposition home or self-care (01) ==
PROVIDERS: PCP Nurse Practitioner Family; Visit Provider Nurse Practitioner Family
DX: D68.61 Antiphospholipid syndrome (principal); M79.89 Other specified soft tissue disorders; F17.200 Nicotine dependence, unspecified, uncomplicated; Z12.11 Encounter for screening for malignant neoplasm of colon; K21.9 Gastro-esophageal reflux disease without esophagitis; I10 Essential (primary) hypertension

== ENCOUNTER 2024-01-23 06:41 | Outpatient (REF) | payer OTHER, SELFPAY ==
[2024-01-23 10:07] LABS: MANUAL DIFF FLAG NO
[2024-01-23 10:11] LABS: Basophils Absolute Auto 0.1 X10*3/uL (0.0-0.2); Basophils Percent Auto 0.9 % (0-2); Eosinophils Absolute Auto 0.3 X10*3/uL (0.0-0.4); Eosinophils Percent Auto 4.9 % (0-4); Hematocrit 33.6 % (37.0-47.0); Hemoglobin 11.4 g/dl (12.0-16.0); Imm Gran Abs Auto 0.01 X10*3/uL (0.00-0.03); Imm Gran Pct Auto 0.2 % (0.0-0.4); Lymphocytes Absolute Auto 1.7 X10*3/uL (1.2-4.9); Lymphocytes Percent Auto 29.4 % (20-40); Mean Corpuscular HGB Conc 33.9 g/dl (31.0-35.0); Mean Corpuscular Hemoglobin 32.7 pg (27.0-33.0); Mean Corpuscular Volume 96.3 fL (80.0-98.0); Mean Platelet Volume 9.9 fL (9.4-12.3); Monocytes Absolute Auto 0.4 X10*3/uL (0.1-1.2); Monocytes Percent Auto 7.1 % (2-11); Neutrophils Absolute Auto 3.3 x10*3/uL (2.0-8.3); Neutrophils Percent Auto 57.5 % (45-73); Platelet Count 196 X10*3/uL (160-400); Red Blood Count 3.49 X10*6/uL (4.20-5.50); Red Cell Distribution Width 13.2 % (11.0-16.0); White Blood Count 5.7 X10*3/uL (4.8-10.8)
[2024-01-23 10:17] LABS: Prothrombin Time 35.6 SEC (10.9-12.4)
[2024-01-23 11:11] LABS: Alanine Aminotransferase 26 U/L (0-31); Albumin Level 3.7 g/dL (3.5-5.0); Alkaline Phosphatase 58 U/L (39-117); Anion Gap 9 (12-20); Aspartate Amino Transferase 35 U/L (5-31); Bilirubin Total 0.3 mg/dL (0.0-1.0); Blood Urea Nitrogen 21 mg/dL (9-16); Calcium 9.1 mg/dL (8.4-10.2); Carbon Dioxide 31 mmol/L (22-29); Chloride 106 mmol/L (96-108); Cholesterol 164 mg/dL (<200); Estimated Glomerular Filt Rate > 60; Glucose Fasting 92 mg/dL (60-99); HDL Cholesterol 44 mg/dL (>40); LDL Cholesterol Calculated 94 mg/dL (<100); Potassium 3.9 mmol/L (3.3-5.1); Sodium 142 mmol/L (135-145); Total Protein 6.9 g/dL (6.5-8.0); Triglycerides 132 mg/dL (<150)
[2024-01-23 12:30] LABS: Free T4 (Free Thyroxine) 1.53 ng/dL (0.71-1.85)
== END 2024-01-23 06:42 | disposition home or self-care (01) ==
LOC: HO.HMGCLDS 06:41
PROVIDERS: PCP Nurse Practitioner Family; Visit Provider Nurse Practitioner Family
DX: Z79.01 Long term (current) use of anticoagulants (principal); E03.9 Hypothyroidism, unspecified; I10 Essential (primary) hypertension
CPT/HCPCS: 36415; 80053; 80061; 84439; 84443; 85025; 85610

== ENCOUNTER 2024-02-06 06:48 | Outpatient (REF) | payer OTHER, SELFPAY ==
[2024-02-06 10:22] LABS: INTERNATIONAL NORM RATIO 1.4 (0.9-1.1); Prothrombin Time 16.8 SEC (10.9-12.4)
== END 2024-02-06 06:49 | disposition home or self-care (01) ==
LOC: HO.HMGCLR 06:48
PROVIDERS: PCP Nurse Practitioner Family; Visit Provider Nurse Practitioner Family
DX: Z79.01 Long term (current) use of anticoagulants (principal); E03.9 Hypothyroidism, unspecified
CPT/HCPCS: 36415; 85610

== ENCOUNTER 2024-07-13 06:23 | Outpatient (REF) | payer OTHER, SELFPAY ==
[2024-07-13 10:13] LABS: INTERNATIONAL NORM RATIO 1.4 (0.9-1.1); Prothrombin Time 16.4 SEC (10.9-12.4)
== END 2024-07-13 06:24 | disposition home or self-care (01) ==
LOC: HO.HMGCLDS 06:23
PROVIDERS: PCP Nurse Practitioner Family; Visit Provider Nurse Practitioner Family
DX: Z79.01 Long term (current) use of anticoagulants (principal); E03.9 Hypothyroidism, unspecified
CPT/HCPCS: 36415; 85610

== ENCOUNTER → 2024-09-27 09:23 | Outpatient (BNVA) | payer OTHER, SELFPAY | PROVIDERS: PCP Nurse Practitioner Family | DX: D68.61 Antiphospholipid syndrome (principal); E78.5 Hyperlipidemia, unspecified | CPT/HCPCS: 99211 ==

== ENCOUNTER 2024-09-27 09:52 | Outpatient (AMB) | payer OTHER, SELFPAY ==
--- NOTE | 2024-09-27 09:13 | MHC.PC.OV ---
Intake Visit Reasons: Med Discuss, Android [phone] Allergies No Known Allergies Allergy (Verified 01/12/24 08:30) Medication List - Last Reconciled 09/27/24 by MARGAUX Oh atorvastatin 20 mg PO DAILY levothyroxine 75 mcg PO DAILY 90 days levothyroxine 200 mcg PO DAILY 90 days lisinopril 40 mg PO DAILY omeprazole 40 mg PO DAILY omeprazole 40 mg PO DAILY 90 days warfarin 5 mg PO DAILY Tobacco use date assessed: 07/27/23 Dental Screening Dental Screen Date: 07/27/23 HPI Med Discuss, Android [phone] HPI Details History of Present Illness The patient is a 59-year-old female presenting for management of antiphospholipid syndrome and discussion of preventative care measures. The patient has a history of antiphospholipid syndrome for which she is currently on warfarin therapy. She performs home INR testing but has faced challenges in communication regarding her results with us. She denies any current blood in stool or diarrhea. The patient reports a poor appetite and is due for a weight check during her upcoming lab visit. She acknowledges the need for a mammogram, which has not yet been completed, and missed a previous appointment for colon cancer screening. Reinforced importance of communication with herself and this office, especially with INRs. She reports following up with [facility] recently, will try to track down these notes. Review of Systems - Gastrointestinal: Denies blood in stool, denies diarrhea - General: Reports poor appetite - Cardiovascular: Denies chest pain - Respiratory: Denies increased shortness of breath Plan The patient is encouraged to continue her warfarin therapy and perform regular INR testing at home. Efforts should be made to improve communication regarding her INR results, possibly through coordination with the nurse navigator. The patient is advised to complete her mammogram and reschedule her colon cancer screening as part of her preventative care. She is also encouraged to attend her lab appointment to assess her weight and other health parameters. Discussion Notes I discussed with the patient the importance of maintaining her warfarin therapy and ensuring regular INR monitoring. We talked about the challenges in communication and the role of the nurse navigator in facilitating better coordination. I emphasized the need for completing her mammogram and rescheduling her colon cancer screening to stay on top of her preventative care. Patient Instructions - Continue taking warfarin as prescribed and perform home INR tests regularly. - Improve communication with healthcare providers regarding INR results. - Schedule and complete a mammogram. - Reschedule and attend the colon cancer screening. - Attend the upcoming lab appointment for weight and health assessment. [facility] Medical History Heroin abuse STEMI (ST elevation myocardial infarction) Lupus anticoagulant positive DVT (deep venous thrombosis) Kidney stone Raynaud's disease without gangrene Hypothyroid Surgical History History of heart artery stent Family History Father Liver cancer Mother Hypertension Social History Household Members: Spouse Housing: Apartment Do you presently have visiting nurse or other home services: No Alcohol intake: never Patient Tobacco Use Status: Current everyday Tobacco user Tobacco use type: Cigarette Cigarettes Per Day: 4 Years Smoked: 30 e-Cigarette/Vaping Use: Never Used Second Hand Smoke Exposure: No service: No Current occupational status: employed Cognitive needs: No Hearing needs: No Vision needs: No Questionnaire Thrive Questionnaire Date Thrive assessed: 01/12/24 ANA-7 AMB Questionnaire ANA-7 Date ANA - 7 assessed: 01/12/24 Source: Developed by Drs. German Garcia, Brandi Lopez, Gary Cochran and colleagues, with an educational duc from [employer]. Physical exam (Primary Care) Tobacco/Smoking Status: Tobacco use Status Tobacco use date assessed 07/27/23 01/12/24 07:46 Patient Tobacco Use Status Current everyday Tobacco 01/12/24 07:46 Tobacco use type Cigarette 01/12/24 07:46 e-Cigarette/Vaping Use Never Used 01/12/24 07:46 Thrive Assessment: Date of Thrive Assessment Date Thrive assessed 01/12/24 01/12/24 08:48 Coding Level of Care Code Tele Est Pt Level 3 (60332) Diagnoses Antiphospholipid antibody syndrome D68.61 Dyslipidemia E78.5 Assessment & Plan Assessment & Plan (1) Antiphospholipid antibody syndrome: Code(s): D68.61 - Antiphospholipid syndrome Category: Medical (2) Dyslipidemia: Code(s): E78.5 - Hyperlipidemia, unspecified Category: Medical Plan . Orders: Orders MM screening mammo BI Today Z12.31 - Encounter for screening mammogram for malignant neoplasm of breast Medications: New clopidogrel 75 mg PO DAILY 90 tabs 0RF pantoprazole 20 mg PO DAILY 90 tabs 0RF
== END 2024-09-27 10:01 | disposition home or self-care (01) ==
LOC: HO.HMCC 09:52
PROVIDERS: PCP Nurse Practitioner Family; Visit Provider Nurse Practitioner Family
DX: D68.61 Antiphospholipid syndrome (principal); E78.5 Hyperlipidemia, unspecified

== ENCOUNTER 2024-09-28 06:46 | Outpatient (REF) | payer OTHER, SELFPAY ==
[2024-09-28 10:20] LABS: MANUAL DIFF FLAG NO
[2024-09-28 10:22] LABS: Appearance Urine Clear; Glucose Urine UA Negative (Negative); PH 6.0 (5.0-9.0); Specific Gravity - Urine 1.020 (1.005-1.025); UMIC TRIGGER UACC YES
[2024-09-28 10:43] LABS: Hematocrit 38.4 % (37.0-47.0); Hemoglobin 13.5 g/dl (12.0-16.0); Imm Gran Abs Auto 0.04 X10*3/uL (0.00-0.03); Imm Gran Pct Auto 0.5 % (0.0-0.4); Lymphocytes Absolute Auto 1.9 X10*3/uL (1.2-4.9); Mean Corpuscular HGB Conc 35.2 g/dl (31.0-35.0); Mean Corpuscular Hemoglobin 33.3 pg (27.0-33.0); Mean Corpuscular Volume 94.6 fL (80.0-98.0); NRBC Abs Auto 0.000 X10*3/uL (0.0-0.012); NRBC Pct Auto 0.0 /100WBC (0.0-0.2); Platelet Count 197 X10*3/uL (160-400); Red Blood Count 4.06 X10*6/uL (4.20-5.50); White Blood Count 7.9 X10*3/uL (4.8-10.8)
[2024-09-28 11:00] LABS: Alanine Aminotransferase 23 U/L (0-31); Albumin Level 4.2 g/dL (3.5-5.0); Alkaline Phosphatase 54 U/L (39-117); Anion Gap 11 (12-20); Aspartate Amino Transferase 43 U/L (5-31); Blood Urea Nitrogen 24 mg/dL (9-16); Calcium 9.4 mg/dL (8.4-10.2); Carbon Dioxide 31 mmol/L (22-29); Chloride 104 mmol/L (96-108); Cholesterol 223 mg/dL (<200); Estimated Glomerular Filt Rate > 60; HDL Cholesterol 65 mg/dL (>40); Potassium 4.5 mmol/L (3.3-5.1); Sodium 141 mmol/L (135-145); Total Protein 7.5 g/dL (6.5-8.0); Triglycerides 84 mg/dL (<150)
[2024-09-28 11:53] LABS: Free T4 (Free Thyroxine) 0.51 ng/dL (0.71-1.85)
== END 2024-09-28 06:47 | disposition home or self-care (01) ==
LOC: HO.HMGCLDS 06:46
PROVIDERS: PCP Nurse Practitioner Family; Visit Provider Nurse Practitioner Family
DX: R31.29 Other microscopic hematuria (principal); E78.5 Hyperlipidemia, unspecified; E03.9 Hypothyroidism, unspecified
CPT/HCPCS: 36415; 80053; 80061; 81001; 84439; 84443; 85025

== ENCOUNTER 2025-01-03 15:08 | Outpatient (REF) | payer OTHER, SELFPAY ==
--- OUTSIDE RECORDS SUMMARY | 2024-08-15 05:10 | XMS_ITS ---
Author Organization [facility] Address [address] [place] [id number] Care Team Providers Care Range Mounter Name Role Phone SAUMYA NGUYEN Primary Care Provider German Sorto [phone] REASON FOR VISIT gerd,dysphagia,screening Encounters Encounter Location Date Provider Diagnosis [facility] [place] [facility] [address] [place] [phone] 08/15/2024 German Fraire Plan Of Treatment No Information Progress Notes * ROCIO ANDERSONDOB:1965 (59 yo F)Acc No.[id number]:08/15/2024 EGD and COL/MAC Patient: Maryam SILVA ROCIO Dunn Provider: Chaka Fraire MD :1965 A ge:59 Y S ex:Female Date:08/15/2024 Address:[address] [id number] Pcp:SAUMYA NGUYEN Subjective: * Chief Complaints: * 1 . Gerd,dysphagia,screening. * Medical History: Objective: * Vitals: Assessment: Plan: * Treatment: * * The named appointment provid er may or may not be the originator of this progress note, and it is not deemed complete until electronically signed by the appointment provider. Sign off status: Pending * Provider: Chaka Fraire MD Date: 0 08/15/2024 Generated for Printi ng/Faxing/eTransmitting on: 03/05/2024 06:19 PM EST
[2025-01-03 16:18] LABS: Appearance Urine Clear; Glucose Urine UA Negative (Negative); PH 5.5 (5.0-9.0); Specific Gravity - Urine >= 1.030 (1.005-1.025); UMIC TRIGGER UACC YES
[2025-01-03 16:19] LABS: MANUAL DIFF FLAG NO
[2025-01-03 16:26] LABS: Hematocrit 37.7 % (37.0-47.0); Hemoglobin 12.7 g/dl (12.0-16.0); Imm Gran Abs Auto 0.11 X10*3/uL (0.00-0.03); Imm Gran Pct Auto 1.1 % (0.0-0.4); Lymphocytes Absolute Auto 1.9 X10*3/uL (1.2-4.9); Mean Corpuscular HGB Conc 33.7 g/dl (31.0-35.0); Mean Corpuscular Hemoglobin 33.4 pg (27.0-33.0); Mean Corpuscular Volume 99.2 fL (80.0-98.0); NRBC Abs Auto 0.000 X10*3/uL (0.0-0.012); NRBC Pct Auto 0.0 /100WBC (0.0-0.2); Platelet Count 281 X10*3/uL (160-400); Red Blood Count 3.80 X10*6/uL (4.20-5.50); White Blood Count 9.8 X10*3/uL (4.8-10.8)
[2025-01-03 16:29] LABS: UACC Culture Trigger YES
[2025-01-03 16:35] LABS: INTERNATIONAL NORM RATIO 1.2 (0.9-1.1); Prothrombin Time 15.0 SEC (11.2-13.5)
[2025-01-03 16:45] LABS: Cannabinoid Screen Urine Not Detected (Not Detect)
[2025-01-03 16:54] LABS: Alanine Aminotransferase 21 U/L (0-31); Albumin Level 4.0 g/dL (3.5-5.0); Alkaline Phosphatase 73 U/L (39-117); Anion Gap 12 (12-20); Aspartate Amino Transferase 40 U/L (5-31); Blood Urea Nitrogen 24 mg/dL (9-16); Calcium 9.5 mg/dL (8.4-10.2); Carbon Dioxide 34 mmol/L (22-29); Chloride 103 mmol/L (96-108); Cholesterol 175 mg/dL (<200); Estimated Glomerular Filt Rate > 60; HDL Cholesterol 41 mg/dL (>40); Potassium 4.5 mmol/L (3.3-5.1); Sodium 144 mmol/L (135-145); Total Protein 7.8 g/dL (6.5-8.0); Triglycerides 73 mg/dL (<150)
[2025-01-03 18:02] LABS: Free T4 (Free Thyroxine) 1.18 ng/dL (0.71-1.85)
--- OUTSIDE RECORDS SUMMARY | 2025-01-03 18:20 | XMS_ITS | Patient Health Record ---
Author Organization [facility] Address [address] [place] [phone] Care Team Providers Care Traffic Signal Technician Name Role Phone SAUMYA CANALES Primary Care Provider German Sorto [phone] Allergies No Known Allergies Reason For Referral No Information Medications Medication SIG (Take, Route, Frequency, Duration) Notes Start Date End Date Status Warfarin Sodium 7.5 MG 1 tablet Orally O nce a day; Duration: 30 day(s) 05/23/2024 Active Omeprazole 40 MG 1 capsule 1/2 to 1 h our before morning meal Orally Once a day; Duration: 30 day(s) 05/23/2024 Active Atorvastatin Calcium 20 MG 1 tablet Oral ly Once a day; Duration: 30 day(s) 05/23/2024 Active Levothyroxine Sodium 300 MCG 1 tablet in the morning on an empty stomach Orally Once a day; Duration: 30 day(s) 05/23/2024 Active Clopidogrel Bisulfate 75 MG 1 tablet Ora lly Once a day; Duration: 30 day(s) 05/23/2024 Active Lisinopril 20 MG 1 tablet Orally Once a day; Duration: 30 day(s) 05/23/2024 Active Immunizations Vaccine Route Administration Date Status Comme nts Influenza Unknown 05/23/2024 Refused Social History Tobacco Use: Social History Observation Description Date Details (start date - stop date) Current Smoker NA - NA Tobacco Control (Standard) Question Answer Notes Tobacco use: Current smoker AUDIT-C (Standard) Question Answer Notes Did you have a drink containing alcohol in the p ast year? No Points 0 Interpretation Negative Section Notes: Smokes cigarettes daily; no alcohol Problems Problem Type SNOMED Code ICD Code Onset Dates Problem Status W/U Status Risk Notes Problem Colon cancer screening (759491417) Colon cancer screening (Z12.11) Active confirmed Problem Dysphagia (32419165) Dysphagia (R13.10) Active confirmed Problem Gastroesophageal reflux disease (874462850) Gastroesophageal reflux disease (K21.9) Active confirmed Problem Stricture of esophagus (01736956) Esophageal obstruction (K22.2) Active confirmed Problem Gastroesophageal reflux disease (796279170) GERD (gastroesophageal reflux disease) (K21.9) Active confirmed Problem Abnormal CT scan , esophagus (R93.3) Active confirmed Problem Esophageal dysphagia (16495519) Esophageal dysphagia (R13.19) Active confirmed Vital Signs Temperature 98.9 degrees Fahrenheit 05/23/2024 Blood pressure diastolic 01 mm Hg 05/23/2024 Height 67 in 05/23/2024 Blood pressure systolic 001 mm Hg 05/23/2024 Weight 142.2 lbs 05/23/2024 BMI 22.27 kg/m2 05/23/2024 Procedures Procedure Date Ordered Date Performed Result Body Sit e UPPER GI ENDOSCOPY BALLOOON DILATION OF ESOPH 05/23/2024 N/A COLONOSCOPY 05/23/2024 N/A Encounters Encounter Location Date Provider Diagnosis [facility] [address] [place] [phone] 05/23/2024 German Fraire Colon cancer screening Z12.11 ; Dysphagia R13.10 and GERD (gastroesophageal reflux disease) K21.9 [facility] [address] [place] [phone] 04/19/[address] [facility] [address] [place] [phone] 05/23/[address] [facility] [address] [place] [phone] 05/24/[address] [facility] [address] [place] [phone] 08/13/[address] [facility] [address] [place] [phone] 08/19/[address] [facility] [address] [place] [phone] 09/27/2024 German Fraire Assessments Encounter Date Diagnosis (ICD Code) Assessment Notes Treatment Notes Treatment Clinical Notes Section Notes 05/23/2024 Colon cancer screening (ICD-10 - Z12.11) with MACStop Coumadin and clopidogrel for 5 days before the procedures. We will need clearance from your pressure tank operator in [place] and from Saumya Canales N.P. You will need to get a Lovenox prescription from Saumya as well to use when you are off the Coumadin. Overall, Sreekanth appears well. Given her ongoing symptoms of reflux and recurrent dysphagia despite her PPI, as well as her previous history of an esophageal stricture, I did recommend an upper endoscopy with balloon dilation for further evaluation and treatment. She will also undergo a screening colonoscopy on the same day. We did review the rationale for that in regard to colorectal cancer prevention and/or early detection. Full consent has been obtained from her for both procedures, including risks of bleeding and perforation. The procedures will be done with monitored anesthesia care. She was given the below instructions regarding adjustment of her two blood thinners for the procedures. She will receive a prescription for Lovenox for bridging while off Coumadin at the discretion of her primary care physician. Sreekanth was comfortable with this plan. Thank you again for allowing me to participate in Sreekanth's care. I shall continue to keep you advised of her progress. 05/23/2024 Dysphagia (ICD-10 - R13.10) Overall, Sreekanth appears well. Given her ongoing symptoms of reflux and recurrent dysphagia despite her PPI, as well as her previous history of an esophageal stricture, I did recommend an upper endoscopy with balloon dilation for further evaluation and treatment. She will also undergo a screening colonoscopy on the same day. We did review the rationale for that in regard to colorectal cancer prevention and/or early detection. Full consent has been obtained from her for both procedures, including risks of bleeding and perforation. The procedures will be done with monitored anesthesia care. She was given the below instructions regarding adjustment of her two blood thinners for the procedures. She will receive a prescription for Lovenox for bridging while off Coumadin at the discretion of her primary care physician. Sreekanth was comfortable with this plan. Thank you again for allowing me to participate in Sreekanth's care. I shall continue to keep you advised of her progress. 05/23/2024 GERD (gastroesopha geal reflux disease) (ICD-10 - K21.9) Overall, Sreekanth appears well. Given her ongoing symptoms of reflux and recurrent dysphagia despite her PPI, as well as her previous history of an esophageal stricture, I did recommend an upper endoscopy with balloon dilation for further evaluation and treatment. She will also undergo a screening colonoscopy on the same day. We did review the rationale for that in regard to colorectal cancer prevention and/or early detection. Full consent has been obtained from her for both procedures, including risks of bleeding and perforation. The procedures will be done with monitored anesthesia care. She was given the below instructions regarding adjustment of her two blood thinners for the procedures. She will receive a prescription for Lovenox for bridging while off Coumadin at the discretion of her primary care physician. Sreekanth was comfortable with this plan. Thank you again for allowing me to participate in Sreekanth's care. I shall continue to keep you advised of her progress. 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 She was noted to have some mild changes of reflux and a small hiatal hernia, but no changes of Moore's esophagus or significant esophagitis Surgical History Surgery Date(Month/Year) [facility] Hospitalization History Reason Date(Month/Year) heart attack blood clots in legs
== END 2025-01-03 15:09 | disposition home or self-care (01) ==
LOC: HO.HMGCLDS 15:08
PROVIDERS: PCP Nurse Practitioner Family; Visit Provider Nurse Practitioner Family
DX: I10 Essential (primary) hypertension (principal); E03.9 Hypothyroidism, unspecified; E55.9 Vitamin D deficiency, unspecified; R53.83 Other fatigue; R60.0 Localized edema; R63.4 Abnormal weight loss; F11.10 Opioid abuse, uncomplicated; F17.210 Nicotine dependence, cigarettes, uncomplicated; Z79.01 Long term (current) use of anticoagulants
CPT/HCPCS: 80053; 80061; 80307; 81001; 82306; 84439; 84443; 85025; 85610; 87086; 90471; 90677; 96127; 99211; 99212

== ENCOUNTER 2025-01-03 15:14 | Outpatient (AMB) | payer OTHER, SELFPAY ==
[2025-01-03 15:29] VITALS: BP 110/68; PULSE 65; O2SAT 98; BMI 20.2
--- NOTE | 2025-01-03 15:29 | A.OFFPC_ITS ---
Vital Signs 01/03/25 15:29 Height 5 ft 7 in Weight 129 lb BMI 20.2 BP 110/68 Blood Pressure Location Lt brachial Position Sitting Pulse 65 Pulse Source Pulse Oximeter Pulse Oximetry (%) 98 Oxygen Delivery Method Room Air Intake Visit Reasons: 3m follow up- PHQ-9 needed Auto Hauler Required: No Accompanied by: Self / Same As Patient Allergies No Known Allergies Allergy (Verified 01/03/25 15:59) Medication List - Last Reconciled 01/03/25 by ZARIA Oh atorvastatin 20 mg PO DAILY clopidogrel 75 mg PO DAILY levothyroxine 200 mcg PO DAILY 90 days levothyroxine 75 mcg PO DAILY 90 days lisinopril 40 mg PO DAILY pantoprazole 40 mg PO BID warfarin 5 mg PO DAILY Tobacco use date assessed: 01/03/25 Dental Screening Dental Screen Date: 01/03/25 Did you have a dental visit in the last 12 months?: No Did you have a dental problem in the last 6 months where you did not have access to dental care?: No Was dental information given to patient?: Patient declined HPI 3m follow up- PHQ-9 needed HPI Details Chief Complaint Patient presents for follow-up reporting she has been very fatigued lately. History of Present Illness The patient is a 59-year-old female presenting for a follow-up visit with reports of fatigue. She has experienced significant unintentional weight loss, with her weight decreasing from 144 pounds to 129 pounds over the last year. The patient's medical history is notable for chronic left lower extremity swelling, which has been present for years with previously ruled-out deep vein thrombosis. She has a history of esophageal dilation and continues to report some choking on larger pieces of food, though not with liquids. She is on long- term warfarin therapy and has a history of hypothyroidism, for which she is on 275 mcg of medication. Regarding her social history, she reports she is no longer using heroin. She has a history of smoking. 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 A significant psychosocial stressor includes her grandson's recent heart transplant, which involved her sleeping in a chair at the hospital overnight for approximately one year. She has not completed several previously ordered screenings, including a low- dose CT scan, a mammogram, a venous ultrasound, an endoscopy, and a colonoscopy. The endoscopy and colonoscopy were not performed because of the need to bridge her warfarin, which was complicated by not having an accurate weight. 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 - Substance Use: Patient reports she has stopped using street drugs, which previously included heroin. - Tobacco Use: Patient has a history of smoking. - Living Situation: Patient was recently living in a hospital in [place] and sle eping in a chair overnight for approximately a year while caring for her grandson. - Family Status: Patient mentions a gran teraon who recently had a complete heart transplant, which has been a significant stressor. - Sleep: Reports her sleep is not so goo d. Health Maintenance - Lung Cancer Screening: A low-dose CT s can was previously referred but not completed. - Breast Cancer Screening: A mammogram w as previously ordered but not completed; this has been resubmitted. - Colon Cancer Screening: The patient wa s supposed to have an endoscopy and colonoscopy but could not due to being on warfarin without an accurate weight for bridging. - Substance Use: Patient reports she is no longer using heroin. Review of Systems - Constitutional: Reports significant fa tigue and a weight loss of 15 pounds over the past year. - Neurological/Psychiatric: Reports poor sleep. - Respiratory: Reports a cough. - Gastrointestinal: Reports some choking on larger pieces of food. - Musculoskeletal/Integumentary: Reports left axillary tenderness, which she attributes to her cough. - Cardiovascular: Reports chronic left l ower extremity swelling. Physical Exam General: Cooperative, healthy appearing, comfortable, no acute distress and skinny stature Orientation: Patient oriented x3 Limitations: No limitations Head: Normal to inspection Ears: Hearing grossly normal bilaterally Nose: Normal external nose present Face and sinus: Normal facial exam Eyes: Appearance normal, both eyes and all related structures Neck: Normal visual inspection and Yes full ROM Respiratory: Normal respiratory effort and able to speak in complete sentences. Clear to auscultation bilaterally Cardiovascular: Regular rate and rhythm. Normal S1 and S2 GI: Normal to inspection. Soft to palpation and nontender Skin: No rashes or lesions noted Neuro: Patient oriented x3 Extremities: Left lower extremity swelling noted, with question of hemosiderin staining, brawny edema. Results - Labs: Blood work was drawn today; resu lts are pending. - Weight Trend: Current weight is 129 lb s, down from 144 lbs approximately one year ago. Plan 1. Fatigue And Unintentional Weight Loss The patient presents with significant fatigue and unintentional weight loss of 15 pounds over the last year. The differential is broad and includes malignancy given her smoking history, endocrine causes such as thyroid dysfunction, and psychosocial factors including working 60-65 hours per week and poor sleep. To further evaluate, additional labs were ordered today, and a CAT scan of her lungs will be obtained. 2. Chronic Left Lower Extremity Edema The patient has a history of chronic left lower extremity swelling with features of brawny edema and possible hemosiderin staining, suggesting chronic venous insufficiency. DVT has been previously ruled out. A venous ultrasound, which was ordered last year but not completed, will be ordered again to formally assess for venous pathology. 3. Hypothyroidism The patient is on 275 mcg of thyroid medication. Given her symptoms of fatigue and weight loss, her thyroid function may be inadequately controlled. Thyroid labs will be rechecked as part of the current workup. 4. Health Maintenance: Cancer Screenings & Dysphagia Evaluation The patient is overdue for several screenings. An order for a mammogram has been resubmitted due to non-completion and new axillary tenderness. A CT scan of the lungs is ordered for lung cancer screening given smoking history and new symptoms. For colon cancer screening, a Cologuard test has been ordered per patient preference. To address her dysphagia with solids, her GI provider will be contacted to arrange for an endoscopy, with the knowledge that an accurate weight is now available to plan for warfarin bridging. Increased pantoprazole to 20mg bid. Discussion Notes I discussed with the patient and her nurse navigator my concerns regarding her significant weight loss and fatigue. I explained the need for a thorough workup, which includes additional lab tests and a CT scan of her lungs, particularly given her smoking history. I emphasized the importance of completing her pending cancer screenings, and that I have reordered her mammogram. We also discussed her chronic leg swelling, and I informed her that I would re-order the venous ultrasound she did not get last year. Regarding her gastrointestinal symptoms, we agreed to order a Cologuard test for colon cancer screening and to contact her GI provider to schedule an endoscopy, noting that her accurate weight will now facilitate bridging her off warfarin. I acknowledged the significant stressors from her work schedule and family situation and how they might be contributing to her fatigue and poor sleep. awaiting all labs to result. Patient Instructions - Please have the new blood tests drawn to investigate the cause of your fatigue and weight loss. - An order for a CT scan of your lungs h as been placed. - Please schedule and complete the mammo gram that has been reordered for you. - An order for a venous ultrasound of yo ur left leg will be placed to check for the cause of the swelling. - A Cologuard test has been ordered for your colon cancer screening. - We will contact your GI specialist to schedule an endoscopy to evaluate your swallowing difficulties. - Be aware that your heavy work schedule and recent life stressors may be contributing to your fatigue and poor sleep. [facility] Medical History Heroin abuse STEMI (ST elevation myocardial infarction) Lupus anticoagulant positive DVT (deep venous thrombosis) Kidney stone Raynaud's disease without gangrene Hypothyroid Surgical History History of heart artery stent Family History Father Liver cancer Mother Hypertension Social History Household Members: Spouse Housing: Apartment Do you presently have visiting nurse or other home services: No Alcohol intake: never Patient Tobacco Use Status: Current everyday Tobacco user Tobacco use type: Cigarette Cigarettes Per Day: 4 Years Smoked: 30 e-Cigarette/Vaping Use: Never Used Second Hand Smoke Exposure: No service: No Current occupational status: employed Cognitive needs: No Hearing needs: No Vision needs: No Questionnaire PHQ-9 Over the last 2 weeks, how often have you been bothered by any of the following problems? 1. Little interest or pleasure in doing things: several days 2. Feeling down, depressed, or hopeless: several days 3. Trouble falling or staying asleep, or sleeping too much: not at all 4. Feeling tired or having little energy: several days 5. Poor appetite or overeating: several days 6. Feeling bad about yourself - or that you are a failure or have let yourself or your family down: not at all 7. Trouble concentrating on things, such as reading the newspaper or watching television: not at all 8. Moving or speaking so slowly that other people could have noticed. Or the opposite - being so fidgety or restless that you have been moving around a lot more than usual: several days 9. Thoughts that you would be better off or of hurting yourself in some way: not at all Total score: 5 Depression Screening Interpretation: Negative Depression Screening Done: Yes 36937 - PHQ-9 Billing: Yes Source: Developed by Drs. German Garcia, Brandi Lopez, Gary Cochran and colleagues, with an educational duc from [employer]. Thrive Questionnaire Date Thrive assessed: 01/12/24 I am a: Patient What is your living situation today?: I have a steady place to live Within the past 12 months, did the food you bought not last and you didn't have the money to get more?: Never true Within the past 12 months, did you worry whether your food would run out before you got money to buy more?: Never true Do you have trouble paying for medicines?: Yes Do you have trouble getting transportation to medical appointments?: Yes Do you have trouble paying your heating and electricity bill?: Yes Do you have trouble taking care of your child, family member or friend?: No Do you have trouble with day-to-day activities such as bathing, preparing meals, shopping, managing finances, etc.?: No Are you currently unemployed and looking for a job?: No Are you interested in more education?: No Please select the resources that you would like help with: None Currently or been in a relationship where the following occur: I choose not to answer THRIVE Score: 2 ANA-7 AMB Questionnaire ANA-7 Date ANA - 7 assessed: 01/03/25 Feeling nervous, anxious, or on edge: 0 = Not at all Not being able to stop or control worryin = Not at all Worrying too much about different things: 0 = Not at all Trouble relaxin = Not at all Being so restless that it is hard to sit still: 0 = Not at all Becoming easily annoyed or irritable: 0 = Not at all Feeling afraid as if something awful might happen: 0 = Not at all Total ANA-7 score (0-4 normal; 5-9 mild; 10-14 moderate; 15-21 severe): 0 Source: Developed by Drs. German Garcia, Brandi Lopez, Gary Cochran and colleagues, with an educational duc from [employer]. ANA-7 Assessment Billing ANA-7 Assessment Tool: ANA-7 Assessment 59421 Physical exam (Primary Care) Vital Signs: Last Vital Signs Pulse 65 01/03/25 15:29 BP 110/68 01/03/25 15:29 Pulse Ox 98 01/03/25 15:29 Oxygen Delivery Method Room Air 01/03/25 15:29 BMI result Body Mass Index 20.2 Tobacco/Smoking Status: Tobacco use Status Tobacco use date assessed 01/03/25 01/03/25 15:34 Patient Tobacco Use Status Current everyday Tobacco 01/03/25 15:34 Tobacco use type Cigarette 01/03/25 15:34 e-Cigarette/Vaping Use Never Used 01/03/25 15:34 PHQ-9: PHQ-9 Score PHQ-9: Total score 5 01/03/25 16:00 Depression Screening Interpretation: Negative Thrive Assessment: Date of Thrive Assessment Date Thrive assessed 01/12/24 01/03/25 15:34 Currently or been in a relationship where the following occur: I choose not to answer Immunizations pneumoc 20-ngoc conj-dip cr(PF) 0.5 mL IM syringe Performing Provider: MARGAUX Oh Performing Location: [facility] Administered by: LINDA Jameson on 01/03/25 16:16 Dose Route Admin Location Dispensed Lot Number Expiration Date [facility] Die Cast Die Maker 0.5 mL IM Left Deltoid 0.5 mL [id number] 11/20/25 [id number] [id number] Total Dispensed Waste 0.5 mL 0 % VIS Given Date VIS Provided VIS Publication Date 01/03/25 Single Vaccine 24 Eligibility Eligibility Date Funding Source Not [facility] Eligible 01/03/25 Private Coding Level of Care Code Est Pt Level 4 (98307) Diagnoses Fatigue R53.83 Smoker F17.200 Screening for breast cancer Z12.39 Swelling of left lower extremity M79.89 Weight loss R63.4 Additional Codes ANA-7 Assessment Billing - ANA-7 Assessment Tool: ANA-7 Assessment 13461 ([id number]) PHQ-9 - 85576 - PHQ-9 Billing: Yes ([id number]) Assessment & Plan Assessment & Plan (1) Fatigue: Code(s): R53.83 - Other fatigue Category: Medical (2) Smoker: Code(s): F17.200 - Nicotine dependence, unspecified, uncomplicated Category: Social Hx (3) Screening for breast cancer: Code(s): Z12.39 - Encounter for other screening for malignant neoplasm of breast Category: Medical (4) Swelling of left lower extremity: Code(s): M79.89 - Other specified soft tissue disorders Category: Medical (5) Weight loss: Code(s): R63.4 - Abnormal weight loss Category: Medical Plan . Orders: Orders Hepatitis A,B,C Profile Today R53.83 - Other fatigue C Reactive Protein Today R53.83 - Other fatigue CT chest wo IV con Today F17.200 - Nicotine dependence, unspecified, uncomplicated, R53.83 - Other fatigue, R63.4 - Abnormal weight loss Pneumococcal 20 Immunization Today Z23 - Encounter for immunization Comprehensive Met. Panel Today R53.83 - Other fatigue HIV Ab/Ag Today R53.83 - Other fatigue Erythrocyte Sedimentation Rate Today R53.83 - Other fatigue US venous duplex LE LT Today M79.89 - Other specified soft tissue disorders Referrals Cologuard Test Z12.11 - Encounter for screening for malignant neoplasm of colon, Z12.12 - Encounter for screening for malignant neoplasm of rectum Medications: Changed From pantoprazole 20 mg PO DAILY 90 tabs 0RF To pantoprazole 40 mg PO BID 30 tabs 3RF
== END 2025-01-03 17:25 | disposition home or self-care (01) ==
LOC: HO.HMCC 15:17
PROVIDERS: PCP Nurse Practitioner Family; Visit Provider Nurse Practitioner Family
DX: R53.83 Other fatigue (principal); F17.200 Nicotine dependence, unspecified, uncomplicated; Z12.39 Encounter for other screening for malignant neoplasm of breast; M79.89 Other specified soft tissue disorders; R63.4 Abnormal weight loss; Z23 Encounter for immunization